=== PATIENT | female | born 1995 | race Caucasian/White ===

== ENCOUNTER 2018-07-05 11:58 | Outpatient (REF) | payer MEDICAID, SELFPAY ==
[2018-07-05 22:07] LABS: HCT 41.6 % (36.0-46.0); HGB 13.9 g/dL (12.0-15.5); Mean Corp. HGB Concentration 33.4 g/dL (32.0-36.0); Mean Corpuscular Hemoglobin 30.3 pg (27.0-33.0); Mean Corpuscular Volume 90.8 fL (80-95); Mean Platelet Volume 10.2 fL (8.0-11.0); Platelet Count 251 x1000/uL (130-400); RBC 4.58 m/cumm (4.00-5.20); White Blood Cell Count 6.22 k/cumm (4.4-10.8)
[2018-07-05 22:19] LABS: C-Reactive Protein 0.14 mg/dL (0.0-0.3); TSH (W/Ref FT4) 1.28 uIU/mL (0.358-3.74)
[2018-07-05 23:22] LABS: ESR 10 MM/HR (0-20)
[2018-07-07 08:59] LABS: Cyclic Citrullinated Peptide <2.5 U/mL (<5.0)
== END 2018-07-05 12:18 ==
LOC: NCHCN 11:58
PROVIDERS: PCP Internal Medicine; Visit Provider Internal Medicine
DX: G44.209 Tension-type headache, unspecified, not intractable (principal); G43.109 Migraine with aura, not intractable, without status migrainosus; R53.83 Other fatigue; M25.50 Pain in unspecified joint; Z00.00 Encounter for general adult medical examination without abnormal findings
CPT/HCPCS: 85027; 85652; 86200; 84443; 86140

== ENCOUNTER 2021-01-02 12:13 | Outpatient (REF) | payer MEDICAID, SELFPAY ==
--- NOTE | 2021-01-02 11:15 | SKI_PTH ---
PATIENT: Meron Artis LOC: [facility] U#:[id number] AGE/SX: 25/F ROOM: RE01/02/[address]: Joni Lugo : 1995 BED: DIS: 01/02/2021 SPEC #: [id number] RECD: 01/02/21 16:54 STATUS: STACY RECindy #: [id number] MARYCHUY: 01/02/21 11:[address]: Joni Lugo DEPT: Surgical Specimen RECD BY: Sameera Montague ENTERED: 01/02/21 16:55 SP TYPE: KALI AGUILAR DR: Alli Nguyen Tissues: 1 - SKIN BIOPSY(SHAVE/PUNCH) Procedures: SKIN LEVEL 4 Comments: [id number]
== END 2021-01-02 12:14 | disposition home or self-care (01) ==
LOC: NCHCN 12:13
PROVIDERS: PCP Internal Medicine; Visit Provider Family Medicine
DX: D22.5 Melanocytic nevi of trunk (principal)
CPT/HCPCS: 88305

== ENCOUNTER 2021-10-10 11:02 | Outpatient (REF) | payer MEDICAID, SELFPAY ==
--- NOTE | 2021-10-10 10:30 | PAPFT_PTH ---
PATIENT: Meron Artis LOC: [facility] U#:[id number] AGE/SX: 26/F ROOM: RE10/10/[address]: Bhavya Pacheco : 1995 BED: DIS: 10/10/2021 SPEC #: [id number] RECD: 10/10/21 12:56 STATUS: STACY RECindy #: [id number] MARYCHUY: 10/10/21 10:[address]: Bhavya Pacheco DEPT: [facility] Cytology RECD BY: Sameera Montague ENTERED: 10/10/21 12:56 SP TYPE: PAPFT OTHR DR: Alli Nguyen Tissues: 1 - CX/ENDOCX FOR PAP SMEARS Procedures: PAP THIN PREP/[facility] Screening Comments: [id number]
[2021-10-11 14:49] LABS: Chlamydia Result Negative (Negative); GC Result Negative (Negative)
== END 2021-10-10 11:03 | disposition home or self-care (01) ==
LOC: LBN 11:02
PROVIDERS: PCP Internal Medicine; Visit Provider Obstetrics & Gynecology Gynecology
DX: N81.2 Incomplete uterovaginal prolapse (principal); Z11.3 Encounter for screening for infections with a predominantly sexual mode of transmission; Z12.4 Encounter for screening for malignant neoplasm of cervix; R87.613 High grade squamous intraepithelial lesion on cytologic smear of cervix (HGSIL)
CPT/HCPCS: 87491; 87591; 88142

== ENCOUNTER 2021-10-17 02:19 | Outpatient (CLI) | payer MEDICAID, SELFPAY ==
[2021-10-17 10:43] LABS: HCG Quant, Pregnancy < 1 mIU/mL (1-3)
[2021-10-17 18:56] LABS: Estradiol 25 pg/mL (See Note)
[2021-10-17 19:24] LABS: FSH 7.1 mIU/mL (See Note)
== END 2021-10-17 02:20 | disposition home or self-care (01) ==
LOC: LBO 02:19
PROVIDERS: PCP Internal Medicine; Visit Provider Obstetrics & Gynecology Gynecology
DX: N91.0 Primary amenorrhea (principal); Z11.3 Encounter for screening for infections with a predominantly sexual mode of transmission
CPT/HCPCS: 36415; 82670; 83001; 84702

== ENCOUNTER 2021-10-23 18:10 | Outpatient (REF) | payer MEDICAID, SELFPAY ==
[2021-10-23 16:02] LABS: HCT 41.8 % (36.0-46.0); HGB 13.4 g/dL (11.2-15.7); MCH 29.3 pg (27.0-33.0); MCHC 32.1 % (32.0-36.0); MCV 92 fL (80-95); MPV 9.5 fL (8.0-11.0); Platelet Count 304 10^3/uL (130-400); RBC 4.57 10^6/uL (3.93-5.22); RDW 12.2 % (11.7-14.6); WBC 7.75 10^3/uL (4.4-10.8)
[2021-10-23 16:07] LABS: ALT 17 U/L (14-59); AST 17 U/L (15-37); Albumin 4.1 g/dL (3.4-5.0); Alkaline Phosphatase 52 U/L (46-116); Anion Gap 9.5 mmol/L (3-11); BUN 9 mg/dL (7-18); Bilirubin, Total 0.5 mg/dL (0.2-1.0); CO2 29.5 mmol/L (21.0-32.0); CREATININE 0.7 mg/dL (0.55-1.02); Calcium 9.3 mg/dL (8.5-10.1); Chloride 101 mmol/L (98-107); Glucose 72 mg/dL (74-106); Potassium 3.7 mmol/L (3.5-5.1); Sodium 140 mmol/L (136-145); Total Protein 7.9 g/dL (6.4-8.2)
== END 2021-10-23 18:11 | disposition home or self-care (01) ==
LOC: NCHCN 18:10
PROVIDERS: PCP Internal Medicine; Visit Provider Family Medicine
DX: R63.1 Polydipsia (principal); R10.9 Unspecified abdominal pain
CPT/HCPCS: 80053; 85027; 84443

== ENCOUNTER 2021-11-08 11:58 | Outpatient (REF) | payer MEDICAID, SELFPAY ==
--- NOTE | 2021-11-08 11:45 | CER_PTH ---
PATIENT: Meron Artis LOC: [facility] U#:[id number] AGE/SX: 26/F ROOM: RE11/08/[address]: Bhavya Pacheco : 1995 BED: DIS: 11/08/2021 SPEC #: [id number] RECD: 11/08/21 13:08 STATUS: STACY MAJOR #: [id number] MARYCHUY: 11/08/21 11:[address]: Bhavya Pacheco DEPT: Surgical Specimen RECD BY: Sameera Montague ENTERED: 11/08/21 13:09 SP TYPE: CER JEFF DR: Alli Nguyen Tissues: 1 - CERVICAL BIOPSY 2 - CERVICAL BIOPSY 3 - ENDOCERVICAL BX/CURRETTE Procedures: GROSS AND MICRO LEVEL 4 IMMUNOPEROXIDASE STAIN P16 IPEX Comments: [id number]
== END 2021-11-08 11:59 | disposition home or self-care (01) ==
LOC: LBN 11:58
PROVIDERS: PCP Internal Medicine; Visit Provider Obstetrics & Gynecology Gynecology
DX: N87.1 Moderate cervical dysplasia (principal)
CPT/HCPCS: 88305; 88342; 88361

== ENCOUNTER 2021-12-16 04:27 | Outpatient (CLI) | payer MEDICAID, SELFPAY ==
[2021-12-16 09:35] LABS: HCT 39.7 % (36.0-46.0); HGB 13.3 g/dL (11.2-15.7); MCH 30.2 pg (27.0-33.0); MCHC 33.5 % (32.0-36.0); MCV 90 fL (80-95); Platelet Count 279 10^3/uL (130-400); RDW-SD 39.9 fL
[2021-12-16 09:55] LABS: Anion Gap 8.1 mmol/L (3-11); BUN 10 mg/dL (7-18); CO2 28.9 mmol/L (21.0-32.0); CREATININE 0.7 mg/dL (0.55-1.02); Chloride 104 mmol/L (98-107); Glucose 106 mg/dL (74-106); Potassium 3.9 mmol/L (3.5-5.1); Sodium 141 mmol/L (136-145)
[2021-12-16 10:23] LABS: Source Nasal/Nares
[2021-12-16 11:19] LABS: HCG Qual (Serum) Negative
[2021-12-16 15:15] LABS: COVID-19 PCR Negative (Negative)
== END 2021-12-16 04:28 | disposition home or self-care (01) ==
LOC: LBO 04:28
PROVIDERS: PCP Internal Medicine; Visit Provider Obstetrics & Gynecology Gynecology
DX: R87.613 High grade squamous intraepithelial lesion on cytologic smear of cervix (HGSIL) (principal); Z30.09 Encounter for other general counseling and advice on contraception; Z20.822 Contact with and (suspected) exposure to COVID-19; Z01.818 Encounter for other preprocedural examination; Z01.812 Encounter for preprocedural laboratory examination
CPT/HCPCS: 36415; 80048; 85027; 86850; 86900; 86901; 87635; 84703

== ENCOUNTER 2021-12-18 09:56 | Day surgery (SDC) | payer MEDICAID, SELFPAY ==
[2021-12-18] VITALS (11 sets, daily range): BP systolic 87–114; BP diastolic 36–77; PULSE 58–77; RESP 12–18; TEMP 36–36.3; O2SAT 97–100; BMI 22.6
[2021-12-18] MEDS: Lactated Ringers 1,000 ML 125 ML IV (10:36)
--- NOTE | 2021-12-18 10:45 | W.ANESPRE ---
General Info Date of Service Date Performed: 12/18/21 Height: 5 ft 2.5 in Weight: 57 kg Body Mass Index (BMI): 22.6 Surgical Procedure: Operation Date: 12/18/21 11:25 Proposed Procedure Side Surgeon p Salpingectomy Laparoscopic Bilateral Bhavya Pacheco MD s Leep Cone Biopsy Bhavya Pacheco MD Meds Allergies and Home Medications Allergies Allergy/AdvReac Type Severity Reaction Status Date / Time latex Allergy Verified 12/18/21 10:22 Home Medication Medication Instructions Recorded albuterol sulfate 90 mcg/actuation 2 puff inhalation Q4H PRN 07/10/17 aerosol inhaler (Ventolin HFA) inhalational spacing device 07/10/17 (OptiChamber Advantage spacer) naproxen 375 mg tablet,delayed 375 mg PO PRN #30 tab-caps 12/10/17 release rizatriptan 5 mg tablet 5 mg PO ONCE 12/09/21 multivitamin with minerals-folic 2 tab PO 12/18/21 acid 200 mcg chewable tablet (Multivitamin Gummies) Current Visit Medications: Current Medications Generic Name Dose Route Start Last Admin Trade Name Freq PRN Reason Stop Dose Admin Ringer's Solution 1,000 mls @ 125 mls/hr 12/18/21 06:00 12/18/21 10:36 IV 01/16/22 23:59 125 mls/hr INFUSION ASHANTI Administration IV Miscellaneous Supplies 1 each 12/18/21 06:00 Iv Access IV 01/16/22 23:59 DIRECTED ASHANTI Sodium Chloride 0 ml 12/18/21 06:00 Normal Saline Flush 10 Ml Syr IV 01/16/22 23:59 PRN PRN Sodium Chloride 0 ml 12/18/21 06:00 Normal Saline 10 Ml Vial IJ 01/16/22 23:59 DIRECTED PRN Sterile Water 0 ml 12/18/21 06:00 Water,Injection,Sterile 10 Ml Vial IJ 01/16/22 23:59 DIRECTED PRN PFSH Active Problems Active Problems: Problem Status Onset Code Anxiety 03/02/15 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), 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 Autism 02/14/15 F84.0 Chronic tension-type headache, not intractable 03/02/15 G44.229 Depot contraception 06/08/15 Z30.42 Dysmenorrhea 03/02/15 N94.6 Lower abdominal pain 03/20/17 R10.30 Pain in joint, site unspecified 03/02/15 M25.50 Pervasive developmental disorder, unspecified 03/02/15 F84.9 Pityriasis nigra 10/23/15 B36.1 Encounter for counseling regarding contraception Z30.09 Amenorrhea N91.2 Routine screening for STI (sexually transmitted infection) Z11.3 Pap test, as part of routine gynecological examination Z01.419 High grade squamous intraepithelial cervical dysplasia R87.613 Preop examination Z01.818 Medical History Medical History ADHD (attention deficit hyperactivity disorder) Anxiety Arthralgia BV (bacterial vaginosis) Rx with PO Metronidazole. Dysmenorrhea Initially given Mirena IUD 02/2015 which was not tolerated. 04/2015 Mirena removed and Depo Provera 150mg Q3mo 01/2018 stopped Depo. No BC at this time. Encounter for Depo-Provera contraception (05/11/15) Fibromyalgia Pervasive developmental disorder Tension headache Tobacco Smoking/Tobacco Use Status: Never Alcohol Alcohol Intake: never Substance Use Substance use type: does not use Prental History History 1 Para 0 Hx # Term Pregnancies Multiple births Hx # Pregnancies Ectopic pregnancies AB induced 1 Hx Number of Living Children AB spontaneous Vital Signs and Lab Results Vital Signs Most Recent Vital Signs in EMR: Most Recent Vital Signs Temp Pulse Resp BP Pulse Ox 36.3 C L 77 18 114/77 100 12/18/21 10:00 12/18/21 10:00 12/18/21 10:00 12/18/21 10:00 12/18/21 10:00 Lab Results Blood Type / Crossmatch: Patient ABO/Rh A Positive 12/16/21 Antibody Screen NEGATIVE 12/16/21 Complete Blood Count: White Blood Count 9.90 10^3/uL (4.4-10.8) 12/16/21 09:26 Red Blood Count 4.40 10^6/uL (3.93-5.22) 12/16/21 09:26 Hemoglobin 13.3 g/dL (11.2-15.7) 12/16/21 09:26 Hematocrit 39.7 % (36.0-46.0) 12/16/21 09:26 Platelet Count 279 10^3/uL (130-400) 12/16/21 09:26 Complete Metabolic Panel: Sodium Level 141 mmol/L (136-145) 12/16/21 09:26 Potassium Level 3.9 mmol/L (3.5-5.1) 12/16/21 09:26 Chloride Level 104 mmol/L (98-107) 12/16/21 09:26 Carbon Dioxide Level 28.9 mmol/L (21.0-32.0) 12/16/21 09:26 Blood Urea Nitrogen 10 mg/dL (7-18) 12/16/21 09:26 Creatinine 0.7 mg/dL (0.55-1.02) 12/16/21 09:26 Estimated GFR/1.73 m2 >= 60.00 (mL/min/1.73m2) 12/16/21 09:26 Calcium Level 9.0 mg/dL (8.5-10.1) 12/16/21 09:26 Glucose Level 106 mg/dL (74-106) 12/16/21 09:26 Liver Function Panel: No Data to Display Coagulation Panel: No Data to Display Cardiac Panel: No Data to Display Arterial Blood Gas: No Data to Display Venous Blood Gas: No Data to Display Pancreas Panel: No Data to Display Thyroid Panel: No Data to Display Infectious Disease: Coronavirus (COVID-19)(PCR) Negative (Negative) 12/16/21 09:48 Coronavirus 2019 Source Nasal/Nares 12/16/21 09:48 Blood Cultures: No Data to Display Toxicology Panel: No Data to Display Panel: Serum HCG, Qualitative Negative 12/16/21 09:26 Anesthesia Assessment and Plan Anesthesia History Personal History: No History of Anesthesia Complications Family History: No Family History of Anesthesia Complications Exercise Tolerance Exercise Tolerance: Metabolic Equivalents>4 Cardiac & Pulmonary Exam Cardiac Exam: Normal S1/S2 Heart Sounds Pulmonary Exam: Clear Bilateral Breath Sounds Implantable Cardiac Device Does patient have a Pacemaker or an ICD?: No Airway Exam Known Difficult Airway: No Mallampati Class: 1 Mouth Opening: Normal (> 3cm) Thyromental Distance: Greater than 3 cm Neck Range of Motion: Full ROM Neck Circumference: Normal Teeth Condition: Normal Dentition ASA Classification ASA Score: ASA 2 Emergency Case?: No NPO Status NPO Status: NPO Clears >2 hours, Solids >8 hours Status Status: Negative HCG Anesthesia Plan Resuscitation Status: Full Code Anesthesia Technique: General Anesthesia Airway Planned: Endotracheal Tube Monitors Used: Standard Monitors Preoperative Comments:: 26 yo female for lap slaping. Sig PMHx: anxiety, ADD, autism, fibromyalgia, never smoker/EtOH, occ motion sickness.
[2021-12-18] MEDS: Bupivacaine 0.25% Pres-Free 30 ML VIAL (14:14)
--- NOTE | 2021-12-18 14:20 | FALL_PTH ---
PATIENT: Meron Artis LOC: [facility] U#:[id number] AGE/SX: 26/F ROOM: RE12/18/[address]: Bhavya Pacheco : 1995 BED: DIS: 12/18/2021 SPEC #: [id number] RECD: 12/18/21 17:42 STATUS: STACY Cindy #: [id number] MARYCHUY: 12/18/21 14:[address]: Bhavya Pacheco DEPT: Surgical Specimen RECD BY: Sameera Montague ENTERED: 12/18/21 17:44 SP TYPE: Fall OTHR DR: Alli Nguyen Tissues: 1 - FALLOPIAN TUBE (STERILIZATION) 2 - FALLOPIAN TUBE (STERILIZATION) 3 - CERVICAL BIOPSY 4 - CERVICAL BIOPSY Procedures: GROSS AND MICRO LEVEL 2 GROSS AND MICRO LEVEL 5 Comments: [id number]
[2021-12-18] MEDS: Bupivacaine 0.5% Pres-Free W/EPI 10 ML VIAL (14:37)
[2021-12-18] MEDS: fentaNYL 100 MCG/2 ML VIAL IVP (15:46)
--- NOTE | 2021-12-18 16:00 | PDOC.DSDIS_ITS ---
Discharge Plan Disposition Patient Disposition: HOME Condition: Good Discharge Details Reason For Visit: Tubal sterilization Attending Provider: Bhavya Pacheco Primary Care Provider: Alli Nguyen Home Meds and New Rx's Prescriptions: No Action oxycodone-acetaminophen [Percocet] 5-325 mg tablet 1 tab PO Q6H MDD 4 PRN (Reason: pain) Qty: 5 0RF rizatriptan 5 mg tablet 5 mg PO ONCE Rx Instructions: may repeat once after at least 2 hours naproxen 375 MG tablet,delayed release (DR/EC) 375 mg PO PRN Qty: 30 1RF Rx Instructions: do not chew. swallow whole. albuterol sulfate [Ventolin HFA] 60 PUFF HFA aerosol inhaler 2 puff Inhalation Q4H PRN0RF (DME) OptiChamber Advantage 1 EACH spacer 1 ea Miscellaneous DIRECTED 0RF Multivitamin Gummies 200 mcg Tablet,Chewable 2 tab PO Discharge Instructions Additional Instructions: You may remove the bandages over your incisions on postoperative day 2. You may take a shower on postoperative day 2. I recommend covering your incisions with a Band-Aid avoid having the areas get bumped. The LEEP was performed. You will experience cramping from the cervix and vagina for 24 hours. You will also have brown coffee ground colored discharge. That is the medicine that we put on the cervix to keep it from bleeding. Avoid any tampons in the vagina. Plan to see me in approximately 1 to 2 weeks for postop check. We will discuss the pathology results at the time of a postop visit. I have called a prescription for Percocet 1 tablet every 6 hours for pain to your pharmacy. You may pick it up on the way home. Continue to use your Naprosyn in addition to the Percocet. Take Tylenol for mild pain Percocet has Tylenol in it so avoid taking additional Tylenol when taking the Percocet. Stand Alone Forms: Anesthesia Discharge Inst., DSU Post [employer]/Pete Segura (DSU) Activity:: Activity as Tolerated Remove Dressings/Wound Care:: 48 hours Shower/Bathe:: 48 hours Diet:: As Tolerated Discharge Orders Discharge Orders: Discharge Order (Routine); Ordered 12/18/21 Ordered By: Bhavya Pacheco Discharge Data Discharge Date/Time-TO BE ENTERED AT DEPARTURE: 12/18/21 17:32 Discharge Comment: Pt d/c from DSU.
--- NOTE | 2021-12-18 16:11 | W.ANESPOSTOP ---
Postoperative Evaluation Date, Time and Location Date Performed: 12/18/21 Time Performed: 16:11 Patient Location: PACU Vital Signs Most Recent Imported Vital Signs: Most Recent Vital Signs Temp Pulse Resp BP Pulse Ox 36.3 C L 58 L 12 108/62 100 12/18/21 16:00 12/18/21 16:00 12/18/21 16:00 12/18/21 16:00 12/18/21 16:00 Pain Score Most Recent Pain Score: Most Recent Pain Score Pain Level 5 12/18/21 16:00 Assessment Mental Status: Awake (Alert & Oriented to Patient Baseline) Airway and Respiratory Function: Patent airway with normal (patient baseline) respiratory exam Cardiovascular Function: Hemodynamically Stable Hydration Status: Adequately Hydrated Nausea & Vomiting: No Nausea or Vomiting Pain: Pain is tolerable per patient Peripheral Nerve Block: Patient did not receive a nerve block
--- NOTE | 2021-12-18 18:46 | ROE_ITS ---
Date of service: 12/18/21 Time of Service: 18:46 Operative Note Operative Note DATE OF PROCEDURE: 12/18/21 PRE-OP DIAGNOSIS: undesired fertility. High grade cervical dysplasia same PROCEDURE: Laparoscopic bilateral salpingectomy. Loop electrocautery excision procedure. SURGEON: Bhavya Pacheco ASSISTING SURGEON: Geetha Pena Refer to Anesthesia Record ESTIMATED BLOOD LOSS: 5 PATHOLOGY: other (Bilateral fallopian tubes, 2 cervical LEEP specimens) COMPLICATIONS: None Patient was transported to: PACU Patient's condition: stable Indications: 26-year-old female who desires permanent sterilization after alternative methods of contraception were attempted and are unacceptable to the patient. She has a history of cervical intraepithelial neoplasia 2 and was advised to undergo an excision procedure while under anesthesia. Findings: Normal pelvis. Bilateral normal adnexa. Normal uterus normal upper abdomen normal appearing cervix. Procedure Description: Patient was taken to the operating room where she was placed in the dorsal supine position and endotracheal anesthesia was administered without difficulty. SCDs were in place. She is placed in the dorsal lithotomy position in yellowfin stirrups. A Duke catheter was inserted to gravity drainage A surgical timeout was performed. She was prepped and draped in the usual sterile fashion. The umbilical fold was infiltrated with 0.25% Marcaine without epinephrine and 12 mm vertical skin incision was made in the umbilicus. Through this incision a varies needle connected to carbon dioxide gas was inserted into the abdomen and intra-abdominal placement confirmed by drop in the intra- abdominal pressure. Once a pneumoperitoneum was established a 12 mm Visiport trocar was introduced into the abdomen under direct visualization. The patient was then placed in Trendelenburg and 2 sites on the abdomen approximately 6 cm diagonal to the right of and left of the umbilical incision were transilluminated the skin infiltrated with 0.25% Marcaine, incised with a scalpel and under direct visualization two 5 mm ports were placed in the right and left lower quadrants respectively. The abdomen was inspected with the above-noted findings. The left fallopian tube was located and followed out to its fimbriated end. A LigaSure electrocautery device was used to clamp, cauterize, and transect the fimbria from the left mesosalpinx to the level of the left uterine cornua. The left fallopian tube was then delivered through the 10 mm umbilical port and passed off of the operative field. A similar technique was carried out on the right fallopian tube without difficulty. The right fallopian tube was then delivered through the umbilical port. Both fallopian tube pedicles were inspected and noted to be hemostatic. Under direct visualization the two 5 mm ports were removed, pneumoperitoneum reduced, and the umbilical port removed. The fascia of the umbilical port site was reapproximated with interrupted suture of 0 Vicryl. The skin of all trocar sites was reapproximated with 4-0 Monocryl and covered with dry sterile dressings. Attention was turned to the LEEP. The duke catheter was removed and an insulated Graves speculum with attached smoke removal device was inserted into the vagina.?The body of the cervix was infiltrated with 0.25% Marcaine in a circumferential fashion. A paracervical block was performed with 3cc of 0.25% Marcaine without epinephrine at the 4 and 8 o'clock postions. A [id number] radius loop electrode was attached to electrocautery with a cutting current of 40 and a coagulation current of 10.? Moving from left to right a specimen of ectocervix was removed from the 9 0'clock position to the 3 o'clock position. In a similar fashion another pass of the loop was performed in a left to right direction from the 8 o'clock position to the 4 o'clock position.? The samples were collected and placed in formalin. The surface of the excision site was cauterized with the electrocautery device and then treated with an application of Monsel's paste with excellent hemostasis achieved.? After final inspection of the cervical excision site all instruments were removed from patient's vagina. She was then placed in the dorsal supine position, awakened, extubated and transported to recovery area in stable condition. All sponge lap needle counts are correct x2.
== END 2021-12-18 17:32 | disposition home or self-care (01) ==
PROVIDERS: PCP Internal Medicine; Visit Provider Obstetrics & Gynecology Gynecology
PROC: (CPT 58661; principal; 2021-12-18 11:15)
PROC: 0UBC7ZZ Excision of Cervix, Via Natural or Artificial Opening (ICD-10-PCS; CPT 57522; 2021-12-18 11:15)
DX: Z30.2 Encounter for sterilization (principal); N87.1 Moderate cervical dysplasia
CPT/HCPCS: 58661; 57522; 81025; 88305; 88302; 88307; J1100; J1885; J2250; J2405; J2704; J3010

== ENCOUNTER 2022-03-18 13:45 | Outpatient (REF) | payer MEDICAID, SELFPAY ==
[2022-03-18 15:08] LABS: Anion Gap 7.5 mmol/L (3-11); BUN 11 mg/dL (7-18); CO2 29.5 mmol/L (21.0-32.0); CREATININE 0.8 mg/dL (0.55-1.02); Calcium 9.3 mg/dL (8.5-10.1); Chloride 100 mmol/L (98-107); Estimated GFR 102.86 (mL/min/1.73m2); Glucose 75 mg/dL (74-106); Potassium 4.2 mmol/L (3.5-5.1); Sodium 137 mmol/L (136-145); TSH 1.16 uIU/mL (0.36-3.74)
[2022-03-19 10:33] LABS: IgA 173 mg/dL (85-499); Interpretation (See Note); Tissue Transglutaminase IgA <1.2 U/mL (<4.0)
== END 2022-03-18 13:46 | disposition home or self-care (01) ==
LOC: NCHCN 13:45
PROVIDERS: PCP Internal Medicine; Visit Provider Internal Medicine
DX: R63.1 Polydipsia (principal); R14.0 Abdominal distension (gaseous); K58.9 Irritable bowel syndrome, unspecified; R53.83 Other fatigue
CPT/HCPCS: 80048; 82784; 83516; 84443; 85025

== ENCOUNTER 2022-08-15 13:47 | Outpatient (REF) | payer MEDICAID, SELFPAY ==
[2022-08-16 15:14] LABS: Chlamydia Result Negative (Negative); GC Result Negative (Negative)
== END 2022-08-15 13:48 | disposition home or self-care (01) ==
LOC: LBN 13:47
PROVIDERS: PCP Internal Medicine; Visit Provider Obstetrics & Gynecology Gynecology
DX: Z11.3 Encounter for screening for infections with a predominantly sexual mode of transmission (principal)
CPT/HCPCS: 87491; 87591

== ENCOUNTER 2022-08-26 02:47 | Outpatient (CLI) | payer MEDICAID, SELFPAY ==
[2022-08-26 12:17] LABS: HCT 40.9 % (36.0-46.0); HGB 13.5 g/dL (11.2-15.7); MCH 29.7 pg (27.0-33.0); MCV 90 fL (80-95); MPV 9.1 fL (8.0-11.0); Platelet Count 330 10^3/uL (130-400); RBC 4.55 10^6/uL (3.93-5.22); RDW 12.1 % (11.7-14.6); RDW-SD 39.8 fL; WBC 8.23 10^3/uL (4.4-10.8)
[2022-08-26 12:36] LABS: Anion Gap 6.7 mmol/L (3-11); BUN 12 mg/dL (7-18); CO2 29.3 mmol/L (21.0-32.0); CREATININE 0.7 mg/dL (0.55-1.02); Calcium 9.4 mg/dL (8.5-10.1); Chloride 102 mmol/L (98-107); Estimated GFR 119.99 (mL/min/1.73m2); Glucose 83 mg/dL (74-106); Potassium 3.9 mmol/L (3.5-5.1); Sodium 138 mmol/L (136-145)
== END 2022-08-26 02:48 | disposition home or self-care (01) ==
LOC: LBO 02:47
PROVIDERS: PCP Internal Medicine; Visit Provider Obstetrics & Gynecology Gynecology
DX: N88.8 Other specified noninflammatory disorders of cervix uteri (principal); Z01.818 Encounter for other preprocedural examination; Z01.812 Encounter for preprocedural laboratory examination; R87.613 High grade squamous intraepithelial lesion on cytologic smear of cervix (HGSIL)
CPT/HCPCS: 36415; 80048; 85027; 86850; 86900; 86901

== ENCOUNTER 2022-08-27 08:24 | Day surgery (SDC) | payer MEDICAID, SELFPAY ==
[2022-08-27 08:23] VITALS: BP 110/75; PULSE 86; RESP 20; TEMP 36.3; O2SAT 100
[2022-08-27] MEDS: Lactated Ringers 1,000 ML 125 ML IV (09:10)
--- NOTE | 2022-08-27 09:39 | ANES.PREOP_ITS ---
General Info Date of Service Date Performed: 08/27/22 Height: 5 ft 2.5 in Weight: 59.6 kg Body Mass Index (BMI): 23.6 Surgical Procedure: Operation Date: 08/27/22 09:10 Proposed Procedure Side Surgeon p Dilation & Curettage with Hysteroscopy Bhavya Pacheco MD Meds Allergies and Home Medications Allergies Allergy/AdvReac Type Severity Reaction Status Date / Time latex Allergy skin Verified 08/27/22 08:58 issues (blisters, rash), agitation Home Medication Medication Instructions Recorded albuterol sulfate 90 mcg/actuation 2 puff inhalation Q4H PRN 07/10/17 aerosol inhaler (Ventolin HFA) inhalational spacing device 07/10/17 (OptiChamber Advantage spacer) naproxen 375 mg tablet,delayed 375 mg PO PRN #30 tab-caps 12/10/17 release rizatriptan 5 mg tablet 5 mg PO ONCE 12/09/21 multivitamin with minerals-folic 2 tab PO DAILY 12/18/21 acid 200 mcg chewable tablet (Multivitamin Gummies) Current Visit Medications: Current Medications Generic Name Dose Route Start Last Admin Trade Name Freq PRN Reason Stop Dose Admin Ringer's Solution 1,000 mls @ 125 mls/hr 08/27/22 06:00 08/27/22 09:10 IV 09/25/22 23:59 125 mls/hr INFUSION ASHANTI Administration IV Miscellaneous Supplies 1 each 08/27/22 06:00 Iv Access IV 09/25/22 23:59 DIRECTED ASHANTI Sodium Chloride 0 ml 08/27/22 06:00 Normal Saline Flush 10 Ml Syr IV 09/25/22 23:59 PRN PRN Sodium Chloride 0 ml 08/27/22 06:00 Normal Saline 10 Ml Vial IJ 09/25/22 23:59 DIRECTED PRN Sterile Water 0 ml 08/27/22 06:00 Water,Injection,Sterile 10 Ml Vial IJ 09/25/22 23:59 DIRECTED PRN PFSH Active Problems Active Problems: Problem Status Onset Code Cervix abnormality N88.9 Anxiety 03/02/15 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 Dysmenorrhea Initially given Mirena IUD 02/2015 which was not tolerated. 04/2015 Mirena removed and Depo Provera 150mg Q3mo 01/2018 stopped Depo. No BC at this time. Dysmenorrhea (03/02/15) Initially treated with Mirena IUD which was not well tolerated. 04/2015 Depo Provera Q3mo. Dysmenorrhea sx improved. Encounter for Depo-Provera contraception (05/11/15) Fibromyalgia Pervasive developmental disorder Tension headache Surgical History Surgical History H/O LEEP 12/2021 History of bilateral salpingectomy 12/2021 Tobacco Smoking/Tobacco Use Status: Never Alcohol Alcohol Intake: never Substance Use Substance use type: does not use Prental History History 1 Para 0 Hx # Term Pregnancies Multiple births Hx # Pregnancies Ectopic pregnancies AB induced 1 Hx Number of Living Children AB spontaneous Vital Signs and Lab Results Vital Signs Most Recent Vital Signs in EMR: Most Recent Vital Signs Temp Pulse Resp BP Pulse Ox 36.3 C L 86 20 110/75 100 08/27/22 08:23 08/27/22 08:23 08/27/22 08:23 08/27/22 08:23 08/27/22 08:23 Lab Results Blood Type / Crossmatch: Patient ABO/Rh A Positive 08/26/22 Antibody Screen NEGATIVE 08/26/22 Complete Blood Count: White Blood Count 8.23 10^3/uL (4.4-10.8) 08/26/22 11:56 Red Blood Count 4.55 10^6/uL (3.93-5.22) 08/26/22 11:56 Hemoglobin 13.5 g/dL (11.2-15.7) 08/26/22 11:56 Hematocrit 40.9 % (36.0-46.0) 08/26/22 11:56 Platelet Count 330 10^3/uL (130-400) 08/26/22 11:56 Complete Metabolic Panel: Sodium 138 mmol/L (136-145) 08/26/22 11:56 Potassium 3.9 mmol/L (3.5-5.1) 08/26/22 11:56 Chloride 102 mmol/L (98-107) 08/26/22 11:56 Carbon Dioxide 29.3 mmol/L (21.0-32.0) 08/26/22 11:56 BUN 12 mg/dL (7-18) 08/26/22 11:56 Creatinine 0.7 mg/dL (0.55-1.02) 08/26/22 11:56 Est GFR (CKD-EPI 2020) 119.99 (mL/min/1.73m2) 08/26/22 11:56 Calcium 9.4 mg/dL (8.5-10.1) 08/26/22 11:56 Glucose 83 mg/dL (74-106) 08/26/22 11:56 Liver Function Panel: No Data to Display Coagulation Panel: No Data to Display Cardiac Panel: No Data to Display Arterial Blood Gas: No Data to Display Venous Blood Gas: No Data to Display Pancreas Panel: No Data to Display Thyroid Panel: No Data to Display Infectious Disease: Neisseria gonorrhoeae DNA Probe Negative (Negative) 08/15/22 1 2:00 Blood Cultures: No Data to Display Toxicology Panel: No Data to Display Panel: No Data to Display Anesthesia Assessment and Plan Anesthesia History Personal History: No History of Anesthesia Complications Family History: No Family History of Anesthesia Complications Exercise Tolerance Exercise Tolerance: Metabolic Equivalents>4 Pertinent Negatives Pertinent Negatives: No Symptoms of GERD, No Major Cardiovascular Symptoms or Complaints and No Major Pulmonary Symptoms or Complaints Cardiac & Pulmonary Exam Cardiac Exam: Normal S1/S2 Heart Sounds Pulmonary Exam: Clear Bilateral Breath Sounds Implantable Cardiac Device Does patient have a Pacemaker or an ICD?: No Airway Exam Known Difficult Airway: No Mallampati Class: 1 Mouth Opening: Normal (> 3cm) Thyromental Distance: Greater than 3 cm Neck Range of Motion: Full ROM Neck Circumference: Normal Teeth Condition: Normal Dentition ASA Classification ASA Score: ASA 2 Emergency Case?: No NPO Status NPO Status: NPO Clears >2 hours, Solids >8 hours Status Status: Negative HCG Anesthesia Plan Resuscitation Status: Full Code Anesthesia Technique: General Anesthesia Airway Planned: Natural Airway Monitors Used: Standard Monitors
[2022-08-27 09:51] VITALS: BMI 23.6
[2022-08-27] MEDS: Bupivacaine 0.25% Pres-Free 30 ML VIAL (10:40)
--- NOTE | 2022-08-27 10:42 | ENDO_PTH ---
PATIENT: Meron Artis LOC: [facility] U#:[id number] AGE/SX: 27/F ROOM: RE08/27/[address]: Bhavya Pacheco : 1995 BED: DIS: 08/27/2022 SPEC #: [id number] RECD: 08/27/22 12:42 STATUS: STACY RECindy #: [id number] MARYCHUY: 08/27/22 10:[address]: Bhavya Pacheco DEPT: Surgical Specimen RECD BY: Sameera Montgaue ENTERED: 08/27/22 12:43 SP TYPE: Endo OTHR DR: Alli Nguyen Tissues: 1 - ENDOCERVICAL BX/CURRETTE 2 - ENDOMETRIUM BX/CURRETTE Procedures: GROSS AND MICRO LEVEL 4 Comments: [id number]
[2022-08-27 11:06] VITALS: BP 108/61; PULSE 85; RESP 18; TEMP 36.4; O2SAT 99
--- NOTE | 2022-08-27 11:08 | W.PM.DSUDISC ---
Date of service: 08/27/22 Time of Service: 11:08 Discharge Plan Disposition Patient Disposition: Home Condition: Fair Discharge Details Attending Provider: Bhavya Pacheco Primary Care Provider: Alli Nguyen Home Meds and New Rx's Prescriptions: No Action rizatriptan 5 mg tablet 5 mg PO ONCE Rx Instructions: may repeat once after at least 2 hours naproxen 375 MG tablet,delayed release (DR/EC) 375 mg PO PRN Qty: 30 1RF Rx Instructions: do not chew. swallow whole. albuterol sulfate [Ventolin HFA] 60 PUFF HFA aerosol inhaler 2 puff Inhalation Q4H PRN0RF (DME) OptiChamber Advantage 1 EACH spacer 1 ea Miscellaneous DIRECTED 0RF Multivitamin Gummies 200 mcg Tablet,Chewable 2 tab PO DAILY Discharge Instructions Additional Instructions: The inside of the cervix appeared normal. There was no abnormal tissue that I could see. I scraped the canal leading to the uterus and inside of the uterus. You will have bleeding from your cervix and some pink tinged discharge for the next 48 hours. I have written a prescription for pain medication for you and sent it into your pharmacy. Percocet 5/325mg one tablet every 6 hours as needed for pain, along with Ibuprofen 600mg every 6 hours as needed for pain. You may take Acetaminophen when you are not taking Percocet. Keep your follow up appointment with me at [facility]. Stand Alone Forms: DSU Post [employer] Surgery Activity:: Activity as Tolerated Shower/Bathe:: 24 hours Diet:: As Tolerated Discharge Orders Discharge Orders: Discharge Order (Routine); Ordered 08/27/22 Ordered By: Bhavya Pacheco DS: Diagnosis Discharge Diagnosis (1) Cervix abnormality: Status: Acute
[2022-08-27 11:29] VITALS: BP 110/76; PULSE 83; RESP 18; TEMP 36.6; O2SAT 99
--- NOTE | 2022-08-27 11:49 | W.PM.OP ---
Date of service: 08/27/22 Time of Service: 11:49 Operative Note Operative Note DATE OF PROCEDURE: 08/27/22 PRE-OP DIAGNOSIS: endocervical bleeding POST-OP DIAGNOSIS: same PROCEDURE: Hysteroscopy with endocervical and endometrial curretage. 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 Postop course was unremarkable until she developed daily bleeding that appeared endocervical in origin. Distal endocervix was treated with application of Silver Nitrate without improvement in daily bleeding. Unable to perform any endocervical sampling at the visit where the endocervical os was treated with application of Monsels paste on 08/15/22. Pt reports that her bleeding has stopped since the application of the Monsels paste. No menses since her recent visit. I recommended a fractionated curettage to evaluate her endocervical tissue. Findings: Anterior lip of the cervix flush with vaginal epithelium. Endocervical os stenotic. Dilated Endocervical canal visually normal. Uterine cavity with weblike structure in lower uterine segment and subsequently obscuring visualization of uterine fundus and tubal ostia. Scant endometrial curettings obtained from endocervical and endometrial curettings. Procedure Description: Patient was taken to the operating room where she was placed in the dorsal supine position and was administered without difficulty. She was then placed in the dorsal lithotomy position in [facility] in a neurologically neutral position. She was then prepped, and draped in the usual sterile fashion. Surgical timeout was performed. Proctor speculum was placed into the vagina and the anterior lip of the cervix was infiltrated with 2 cc of 0.25% Marcaine without epinephrine. A single-tooth tenaculum was then used to grasp and hold the posterior lip of the cervix. A paracervical block was performed with 4 cc of quarter percent Marcaine injected into the 4 and 8:00 paracervical spaces respectively. The uterus was sounded to 5 cm. The cervix was then sequentially dilated to a maximum of 15 Hood and a Kevorkian curette was used to sample the endocervical canal. The endocervical tissue was passed off of the operative field. A 0 degree hysteroscope was inserted into the cervical offic and into the uterine cavity with normal saline as a distention medium with the above-noted findings. The hysteroscope was then removed and a banjo curette was used to gently curettage all 4 quadrants of the uterine cavity. Endometrial curettings were then passed off of the operative field. Hysteroscope was then reinserted into the uterine cavity with the obscuring fine synechiae remaining. No further curetting was performed hysteroscope was removed and the tenaculum was removed from the posterior lip of the cervix the tenaculum site was noted hemostatic. Okay patient was awakened and transported to recovery area in stable condition. All sponge lap needle counts correct x2
[2022-08-27 12:17] VITALS: BP 114/65; PULSE 79; RESP 18; TEMP 36.6; O2SAT 100
[2022-08-27] MEDS: Ketorolac 30 MG/ML VIAL IVP (12:27)
--- NOTE | 2022-08-27 12:37 | W.ANESPOSTOP ---
Postoperative Evaluation Date, Time and Location Date Performed: 08/27/22 Time Performed: 12:38 Patient Location: Day Surgery Unit Vital Signs Most Recent Imported Vital Signs: Most Recent Vital Signs Temp Pulse Resp BP Pulse Ox 36.6 C 79 18 114/65 100 08/27/22 12:17 08/27/22 12:17 08/27/22 12:17 08/27/22 12:17 08/27/22 12:17 Pain Score Most Recent Pain Score: Most Recent Pain Score Pain Level 3 08/27/22 12:17 Assessment Mental Status: Awake (Alert & Oriented to Patient Baseline) Airway and Respiratory Function: Patent airway with normal (patient baseline) respiratory exam Cardiovascular Function: Hemodynamically Stable Hydration Status: Adequately Hydrated Nausea & Vomiting: Active Nausea or Vomiting Present (very slight with standing, not requesting treatment. ) Nausea and Vomiting Management: Other Pain: Pain is tolerable per patient Peripheral Nerve Block: Patient did not receive a nerve block
== END 2022-08-27 12:40 | disposition home or self-care (01) ==
PROVIDERS: PCP Internal Medicine; Visit Provider Obstetrics & Gynecology Gynecology
PROC: 0UDB8ZZ Extraction of Endometrium, Via Natural or Artificial Opening Endoscopic (ICD-10-PCS; CPT 58558; principal; 2022-08-27 09:00)
DX: N72 Inflammatory disease of cervix uteri; N85.8 Other specified noninflammatory disorders of uterus
CPT/HCPCS: 58558; 88305; J1100; J1885; J2250; J2405; J2704; J3010

== ENCOUNTER 2023-02-11 10:59 | Outpatient (REF) | payer MEDICAID, SELFPAY ==
--- NOTE | 2023-02-11 10:45 | PAPFT_PTH ---
PATIENT: Meron Artis LOC: [facility] U#:[id number] AGE/SX: 27/F ROOM: RE02/11/[address]: Bhavya Pacheco : 1995 BED: DIS: 02/11/2023 SPEC #: [id number] RECD: 02/11/23 13:13 STATUS: STACY RECindy #: [id number] MARYCHUY: 02/11/23 10:[address]: Bhavya Pacheco DEPT: [facility] Cytology RECD BY: Sameera Montague ENTERED: 02/11/23 13:13 SP TYPE: PAPFT OTHR DR: Alli Nguyen Tissues: 1 - CX/ENDOCX FOR PAP SMEARS Procedures: PAP THIN PREP/UVM Screening HPV DNA PROBE Comments: [id number]
== END 2023-02-11 11:00 | disposition home or self-care (01) ==
LOC: LBN 10:59
PROVIDERS: PCP Internal Medicine; Visit Provider Obstetrics & Gynecology Gynecology
DX: Z12.4 Encounter for screening for malignant neoplasm of cervix (principal); Z11.51 Encounter for screening for human papillomavirus (HPV)
CPT/HCPCS: 88142; 87624

== ENCOUNTER 2023-02-11 11:47 | Outpatient (CLI) | payer MEDICAID, SELFPAY ==
[2023-02-11 11:12] LABS: HCT 41.1 % (36.0-46.0); HGB 13.7 g/dL (11.2-15.7); MCHC 33.3 % (32.0-36.0); MCV 90 fL (80-95); Platelet Count 308 10^3/uL (130-400); RBC 4.56 10^6/uL (3.93-5.22); RDW 12.1 % (11.7-14.6); RDW-SD 39.9 fL; WBC 9.43 10^3/uL (4.4-10.8)
== END 2023-02-11 11:48 | disposition home or self-care (01) ==
LOC: LBO 11:48
PROVIDERS: PCP Internal Medicine; Referring Provider Obstetrics & Gynecology Gynecology; Visit Provider Obstetrics & Gynecology Gynecology
DX: N93.9 Abnormal uterine and vaginal bleeding, unspecified (principal)
CPT/HCPCS: 36415; 85027

== ENCOUNTER 2023-09-29 07:12 | Emergency (ER) | payer MEDICAID, SELFPAY ==
--- NOTE | 2023-09-29 07:15 | RT.EKG_ITS ---
APPROVED REPORT Exam: Resting ECG Reason for Exam: syncope Patient Location: E HR:77 bpm ECG Measurements Heart Rate 77 AXIS DC 154 P 72 QRSd 89 QRS 85 QT 374 T 56 QTc 425 Conclusion Sinus rhythm...normal P axis, V-rate 60- 99 normal sinus rhtyhm, normal axis, normal intervals, non ischemic
[2023-09-29 07:22] VITALS: BP 95/48; PULSE 72; RESP 16; TEMP 36.5; O2SAT 100
[2023-09-29 07:25] VITALS: RESP 16
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
[2023-09-29 08:47] VITALS: BP 116/59; PULSE 79; RESP 18; O2SAT 100
== END 2023-09-29 09:52 | disposition home or self-care (01) ==
PROVIDERS: Emergency Provider Emergency Medicine; PCP Internal Medicine
DX: R55 Syncope and collapse (principal)
CPT/HCPCS: 81025; 82962; 93005; 99284; 93010; 99283

== ENCOUNTER 2024-01-07 15:32 | Outpatient (REF) | payer MEDICAID, SELFPAY ==
--- OUTSIDE RECORDS SUMMARY | 2024-01-07 15:35 | XMS_ITS | Encounter Summary ---
Author Organization [facility] Address [address] [place] [address] Care Team Providers Care Boatbuilder Wood Name Role Phone Alli Nguyen MD Primary Care Provider [phone] Encounter Details Date Type Department Care Team (Late st Contact Info) Description 03/20/[address] [facility] [phone] Domonique Newman MD [address] [place], [place] [id number] Social History Tobacco Use Types Packs/Day Years Used Date Smoking Tobacco: Never Assessed Sex and Gender Information Value Date Recorded Sex Assigned at Not on file Gender Identity Not on file Sexual Orientation Not on file documented as of this encounter Plan of Treatment Not on file documented as of this encounter Procedures Procedure Name Priority Date/Time Associated Diagnosis Comments PAP TEST- RESULT ONLY Routine 03/20/2017 0:00 EST documented in this encounter Results * PAP TEST- RESULT ONLY (03/20/2017 0:00 EST) Pathology Report: CYTOPATHOLOGY REPORT Reports generated via electronic interface contain original data; however they are lacking the format of the original report. Caution should be taken when reading/interpreti ng unformatted reports. Name: ? ASHKAN MERON ? Accession #: ? [id number] : ? 1995 (Age: 21) ??F ?Collect Date: ? 03/20/2017 Location: ? [facility] ? Receive Date: ? 03/24/2017 Provider: ?DOMONIQUE NEWMAN MD Copy to: ?ALLI NGUYEN MD ? Specimen/Source: ?Pap Test, Cervix, ThinPrep Imaging System with manual evaluation Last Menstrual Period: ? Hormonal/Contracep tive Status: ? Depo-Provera ? SPECIMEN ADEQUACY ? Satisfactory for Evaluation - transformation zone component present - scant squamous epithelial component GENERAL CATEGORIZATION ? Negative for Intraepithelial Lesion or Malignancy INTERPRETATION ? Shift in lauren present suggestive of bacterial vaginosis. ? Document reviewed and electronically signed by: ? JEVON Cash(ASCP) ? Report Date: ??04/02/2017 10:53 End of Report [facility] 03/20/2017 03/24/2017 Domonique Newman MD PATHOLOGY ORDERABLES [facility] [address] [place] [address] documented in this encounter Visit Diagnoses Not on filedocumented in this encounter Care Teams Boatbuilder Wood Relationship Specialty Start Date End Date Alli Nguyen MD [address] [place] [address] PCP - General 03/01/15 documented as of this encounter
--- OUTSIDE RECORDS SUMMARY | 2024-01-07 15:35 | XMS_ITS | Encounter Summary ---
Author Organization [facility] Address [address] [place] [address] Care Team Providers Care Beverage Inspection Machine Tender Name Role Phone Alli Nguyen MD Primary Care Provider [phone] Encounter Details Date Type Department Care Team (Late st Contact Info) Description 10/10/2021 Lab Requisition [facility] Pathology & Laboratory Medicine - [address] [id number] Outr Resulting Lab, Provider Social History Tobacco Use Types Packs/Day Years Used Date Smoking Tobacco: Never Assessed Interpersonal Safety Answer Date Record ed Physically Hurt Never 11/20/2019 Verbally Threaten Not on file 11/20/2019 Sex and Gender Information Value Date Recorded Sex Assigned at Not on file Gender Identity Not on file Sexual Orientation Not on file documented as of this encounter Plan of Treatment Not on file documented as of this encounter Procedures Procedure Name Priority Date/Time Associated Diagnosis Comments CHLAMYDIA/N. GONORRHOEAE AMPLIFIED NUCLEIC ACID Routine 10/10/2021 10:30 EDT documented in this encounter Results * CHLAMYDIA/N. GONORRHOEAE AMPLIFIED RNA (10/10/2021 10:30 EDT) Neisseria gonorrhoeae Result Negative Negative 10/11/2021 14:44 EDT [facility] Chlamydia trachomatis Result Negative Negative 10/11/2021 14:44 EDT [facility] Swab ENTIRE ENDOCERVIX / Unknown 10/10/2021 10:30 EDT 10/10/2021 22:47 EDT Provider Outr Resulting Lab MICROBIOLOGY - GENERAL ORDERABLES [facility] [address] [place] [address] documented in this encounter Visit Diagnoses Not on filedocumented in this encounter Care Teams Beverage Inspection Machine Tender Relationship Specialty Start Date End Date Alli Nguyen MD [address] [place], [place] [id number] PCP - General 03/01/15 documented as of this encounter
--- OUTSIDE RECORDS SUMMARY | 2024-01-07 15:35 | XMS_ITS | Encounter Summary ---
Author Organization [facility] Address [facility] [place] [address] Care Team Providers Care Cruise Guide Name Role Phone Alli Nguyen MD Primary Care Provider [phone] Reason for Visit * Reason Comments Left Finger Pain Encounter Details Date Type Department Care Team (Late st Contact Info) Description 09/23/2010 3:30 PM EDT [place] [id number] CLINIC, Shimon Evans MD [facility] [address] [place] [address] Scott Galan PA [facility] [place] [address] Ganglion cyst of flexor tendon sheath (Primary Dx) Discharge Disposition: Home Social History Tobacco Use Types Packs/Day Years Used Date Smoking Tobacco: Never Assessed Sex and Gender Information Value Date Recorded Sex Assigned at Not on file Gender Identity Not on file Sexual Orientation Not on file documented as of this encounter Progress Notes * Scott Galan PA - 09/23/2010 4:23 PM EDT Subjective: Patient ID: Meron Artis is a 15 y.o. female. HPI Ms. Artis is a 15-year-old right-hand dominant woman who presents with an occasionally painful lump on her left index finger. She initially noticed this lump about a year ago, and it may have gotten slightly big over the past year, but it has not had any large changes in size or diameter. This lump is not particularly painful for her except when she presses on it or tries to cross her long finger over her index finger or vice versa. No other lumps or bumps that she has noticed. No family history of lumps or bumps, no numbness or tingling in her left index finger. ROS denies, noncontributory Objective: Physical Exam Awake, alert, oriented to person, place, time, NAD, afebrile, hemodynamically stable.Comfortable in the exam room. Ortho Exam small 5 mm x 5 mm hard nodule that is minimally mobile on the ulnar side at the base of the index finger. It is slightly tender to palpation. Difficult to ascertain if it transilluminates due to location of nodule. Sensation is intact to light touch in the median, radial, and ulnar nerve distribution at the tips of all the fingers. Wrist flexion and extension, EPL, FPL, interossei are intact. FDS and FDP are intact. She is able to flex her index finger at the MCP, DIP, and PIP joints. 2+ radial pulse. MRI - findings c/w flexor sheath ganglion Neurologic Exam intact Assessment and Plan: No problem-specific visit notes found for this encounter. A: ganglion cyst, left index finger P: Ganglion cysts discussed with patient. Treatment options and risks/benefits discussed from leastto most invasive. Patient understands options. Meron would like to give this some thought and would to return in 1 month for final decsion making. Pt agrees, questions solicited/answered, will return as scheduled and as needed for concerns or questions. Pt understands they may also call us prn for above. documented in this encounter Miscellaneous Notes * Miscellaneous - Brad Propeller Driven Airplane Mechanic - 09/30/2010 12:05 PM EDT documented in this encounter Plan of Treatment Not on file documented as of this encounter Visit Diagnoses Diagnosis Ganglion cyst of flexor tendon sheath- Primary Ganglion of tendon sheath documented in this encounter Care Teams Cruise Guide Relationship Specialty Start Date End Date Alli Nguyen MD [address] [place] [address] PCP - General 07/31/10 documented as of this encounter
--- OUTSIDE RECORDS SUMMARY | 2024-01-07 15:35 | XMS_ITS | Encounter Summary ---
Author Organization [facility] Address [facility] [place] [address] Care Team Providers Care Php Mysql Web Developer Name Role Phone Alli Nguyen MD Primary Care Provider [phone] Reason for Visit * Reason Onset Date Comments Finger Pain 08/02/2010 lump on finger Encounter Details Date Type Department Care Team (Late st Contact Info) Description 08/02/2010 [place] [phone] Shimon Parkinson MD [facility] [place] [address] Finger Pain (lump on finger) Social History Tobacco Use Types Packs/Day Years Used Date Smoking Tobacco: Never Assessed Sex and Gender Information Value Date Recorded Sex Assigned at Not on file Gender Identity Not on file Sexual Orientation Not on file documented as of this encounter Miscellaneous Notes * Telephone Encounter - De Quijano - 08/02/2010 4:33 PM EDT I spoke with Meron's mother Rosalind and she informed me that Meron has had no prior x rays. I called again today that no xray is needed prior to the appointment, Dr. Parkinson cancelled the pending order. Arrival to check in at 12:45 PM on August 19, 2010 * Telephone Encounter - De Quijano - 08/02/2010 11:43 AM EDT Called left message with to discuss appointment. documented in this encounter Plan of Treatment Not on file documented as of this encounter Visit Diagnoses Diagnosis Pain in finger- Primary Pain in limb documented in this encounter Care Teams Php Mysql Web Developer Relationship Specialty Start Date End Date Alli Nguyen MD [address] [place] [address] PCP - General 07/31/10 documented as of this encounter
--- OUTSIDE RECORDS SUMMARY | 2024-01-07 15:35 | XMS_ITS | Clinical Summary ---
Author Organization [facility] Address [address] [place] [address] Care Team Providers Care Project Manager Industrial Name Role Phone Alli Ngyuen MD Primary Care Provider [phone] Social History Tobacco Use Types Packs/Day Years Used Date Smoking Tobacco: Never Assessed Interpersonal Safety Answer Date Record ed Physically Hurt Never 11/20/2019 Verbally Threaten Not on file 11/20/2019 Sex and Gender Information Value Date Recorded Sex Assigned at Not on file Gender Identity Not on file Sexual Orientation Not on file Plan of Treatment Health Maintenance Due Date Last Done Comments Hepatitis C Screen 1995 Hepatitis B Vaccine (1 of 3 - 19+ 3-dose series) 07/20 COVID-19 Vaccine ( season) 2022 Meron Artis Personal/Family Self [address] [facility] [address] [place] [address] Meron Artis Personal/Family Self [address] [facility] [address] [place] [address] Meron Artis Personal/Family Self [address] [place] [address] [address] [place] [address] Care Teams Project Manager Industrial Relationship Specialty Start Date End Date Alli Nguyen MD [address] [place] [address] PCP - General 03/01/15
--- OUTSIDE RECORDS SUMMARY | 2024-01-07 15:35 | XMS_ITS | Encounter Summary ---
Author Organization [facility] [place] [address] Care Team Providers Care Emergency Medicine Physician Assistant Name Role Phone Alli Nguyen MD Primary Care Provider [phone] Encounter Details Date Type Department Care Team (Late st Contact Info) Description 10/25/2010 [place] [address] Marina Winston RN Social History Tobacco Use Types Packs/Day Years Used Date Smoking Tobacco: Never Assessed Sex and Gender Information Value Date Recorded Sex Assigned at Not on file Gender Identity Not on file Sexual Orientation Not on file documented as of this encounter Plan of Treatment Not on file documented as of this encounter Visit Diagnoses Not on filedocumented in this encounter Care Teams Emergency Medicine Physician Assistant Relationship Specialty Start Date End Date Alli Nguyen MD [address] [place] [address] PCP - General 07/31/10 documented as of this encounter
--- OUTSIDE RECORDS SUMMARY | 2024-01-07 15:35 | XMS_ITS | Encounter Summary ---
Author Organization [facility] Address [address] [place] [address] Care Team Providers Care Nephrology Social Worker Name Role Phone Alli Nguyen MD Primary Care Provider [phone] Encounter Details Date Type Department Care Team (Latest Contact Info) Description 08/27/2022 Lab Requisition [facility] Pathology & Laboratory Medicine - [address] [address] Bhavya Mcnulty MD [address] [place] [address] [address] [place] [address] Noninflammatory disorder of cervix uteri, unspecified Social History Tobacco Use Types Packs/Day Years [...] Procedure Name Priority Date/Time Associated Diagnosis Comments SURGICAL PATHOLOGY Today 08/27/2022 10 :42 EDT Noninflammatory disorder of cervix uteri, unspecified documented in this encounter Results * SURGICAL PATHOLOGY (08/27/2022 10:42 EDT) Note to Patient The following pathology results have been interpreted by your pathologist and may be available to you before your health provider has had the opportunity to review them. Please allow time for your provider to receive these results and explore management options, if applicable. 09/02/2022 10:50 [facility] Final Diagnosis A. ENDOCERVIX, CURETTAGE: - Predominantly blood with rare fragment of inflammatory debris and minute fragment of benign squamous epithelium. B. ENDOMETRIUM, CURETTAGE: - Predominantly blood with rare fragment of squamous cell epithelium. - No endometrial tissue present for evaluation. 09/02/2022 10:50 [facility] Diagnosis Comment Deeper sections have been examined on parts A and B. 09/02/2022 10:50 [facility] Attestation There was significant resident/fellow involvement in the diagnostic evaluation of this case. By the signature below, the attending physician certifies that they have personally conducted a gross and/or microscopic examination of the described specimens and rendered or confirmed the above diagnosis. 09/02/2022 10:50 [facility] at 1050 Clinical History Cervix abnormality, abnl cervical bleeding 09/02/2022 10:50 [facility] Gross Description A. Received in formalin labelled with proper patient identification (initials W, L) and 1. Endocervical curettings is an aggregate of a scant amount of blood clot, translucent mucus, and probable admixed Telfa pad material (0.3 x 0.2 by less than 0.1 cm). Entirely submitted in A1. Please note the specimen may not survive processing. B. Received in formalin labelled with proper patient identification (initials W, L) and 2. Endometrial curettings is an aggregate of firm blood clot and possible admixed tissue fragments (1.7 x 0.9 x 0.2 cm). Entirely submitted in B1. Debra Alicea 08/28/2022 12:14 09/02/2022 10:50 [facility] Resident/Arian w: Jenn Encarnacion MD 09/02/2022 10:50 [facility] Performing Lab [facility] 09/02/2022 10:50 [facility] Scanned Images 09/02/2022 10:50 [facility] Tissue ENTIRE ENDOMETRIUM / Unknown 08/27/2022 10:42 EDT 08/27/2022 16:48 EDT Tissue specimen (specimen) ENDOMETRIAL STRUCTURE / Unknown 08/27/2022 10:42 EDT 08/27/2022 16:48 EDT Bhavya Mcnulty MD PATHOLOGY ORDERABLES [facility] [address] [place] [address] documented in this encounter Visit Diagnoses Diagnosis Noninflammatory disorder of cervix uteri, unspecified documented in this encounter Care Teams Nephrology Social Worker Relationship Specialty Start Date End Date Alli Nguyen MD [address] [place] [address] PCP - General 03/01/15 documented as of this encounter
--- OUTSIDE RECORDS SUMMARY | 2024-01-07 15:35 | XMS_ITS | Referral Summary ---
Author Organization [facility] Address [address] [place] [address] Care Team Providers Care Alum Plant Operator Name Role Phone Alli Nguyen MD Primary Care Provider [phone] Social History Tobacco Use Types Packs/Day Years Used Date Smoking Tobacco: Never Assessed Interpersonal Safety Answer Date Record ed Physically Hurt Never 11/20/2019 Verbally Threaten Not on file 11/20/2019 Sex and Gender Information Value Date Recorded Sex Assigned at Not on file Gender Identity Not on file Sexual Orientation Not on file Plan of Treatment Not on file Care Teams Alum Plant Operator Relationship Specialty Start Date End Date Alli Nguyen MD [address] [place] [address] PCP - General 03/01/15
--- OUTSIDE RECORDS SUMMARY | 2024-01-07 15:35 | XMS_ITS | Encounter Summary ---
Author Organization [facility] Address [address] [place] [address] Care Team Providers Care Senior Graphic Designer Name Role Phone Alli Nguyen MD Primary Care Provider [phone] Encounter Details Date Type Department Care Team (Late st Contact Info) Description 12/19/2021 Lab Requisition [facility] Pathology & Laboratory Medicine - [address] [address] Bhavya Mcnulty MD [facility] [place] [address] Encounter for other general examination Social History Tobacco Use Types Packs/Day Years [...] Date/Time Associated Diagnosis Comments SURGICAL PATHOLOGY Today 12/18/2021 14 :20 EDT Encounter for other general examination documented in this encounter Results * SURGICAL PATHOLOGY (12/18/2021 14:20 EDT) Note to Patient The following pathology results have been interpreted by your pathologist and may be available to you before your health provider has had the opportunity to review them. Please allow time for your provider to receive these results and explore management options, if applicable. 12/24/2021 13:56 [facility] Final Diagnosis A. FALLOPIAN TUBE, RIGHT, SALPINGECTOMY: - No significant pathologic features. B. FALLOPIAN TUBE, LEFT, SALPINGECTOMY: - No significant pathologic features. C. CERVIX, 9-3 O'CLOCK, LOOP ELECTROSURGICAL EXCISION PROCEDURE: - High-grade squamous intraepithelial lesion (DON 2-3), extending into endocervical glands. - Margins negative for dysplasia. D. CERVIX, 8-4 O'CLOCK, LOOP ELECTROSURGICAL EXCISION PROCEDURE: - Transformation zone mucosa, negative for dysplasia. 12/24/2021 13:56 [facility] Attestation There was significant resident/fellow involvement in the diagnostic evaluation of this case. By the signature below, the attending physician certifies that they have personally conducted a gross and/or microscopic examination of the described specimens and rendered or confirmed the above diagnosis. 12/24/2021 13:56 [facility] at 1356 Clinical History Desired sterilization; LEEP for DON II 12/24/2021 13:56 [facility] Gross Description A. Received in formalin labelled with proper patient identification (initials W, L) and 1. R fallopian tube is a segment of fimbriated fallopian tube (2.9 cm in length x 0.7 cm in diameter) and a segment of fallopian tube without fimbria (1.7 cm in length x 0.5 cm in diameter). The serosal surfaces are smooth, mcdaniel-prasad, and glistening. The specimen is serially sectioned to reveal white-mcdaniel cut surfaces with a central pinpoint to stellate lumen. No lesions are identified. The entire fimbria and a software sales representative cross-section are submitted in A1 and A2. B. Received in formalin labelled with proper patient identification (initials W, L) and 2. Left fallopian tube is a segment of fimbriated fallopian tube (4.7 cm in length, 0.4 cm to 0.8 cm in diameter). The serosal surface is smooth, mcdaniel-prasad, and glistening. The specimen is serially sectioned to reveal white-mcdaniel cut surfaces with a central pinpoint to stellate lumen. No lesions are identified. The entire fimbria and a software sales representative cross-section are submitted in B1 and B2. C. Received in formalin labelled with proper patient identification (initials W, L) and 3. Ectocervix 9-3 o'clock is an unoriented rectangular to crescent shaped cervical tissue with cauterized margins (2.7 x 1.6 cm, excised to a depth of 0.9 cm). There is an eccentric patent slit-like 0.4 cm in diameter os. The ectocervical mucosa is pink-white and smooth. The ectocervical margins are inked black and the endocervical margins are inked blue. The specimen is serially sectioned and entirely submitted in C1-C8. D. Received in formalin labelled with proper patient identification (initials W, L) and 4. Ectocervix 8-4 o'clock is an unoriented somewhat crescent shaped cervical tissue with cauterized margins (2.1 x 1.0 cm, excised to a depth of 0.6 cm). The ectocervical mucosa is mcdaniel-pink and smooth. The ectocervical margins are inked black and the possible endocervical margins are inked blue. The specimen is serially sectioned and entirely submitted in D1-D5. YIN GOULD(ASCP) 12/19/2021 15:56 12/24/2021 13:56 EDT [facility] Resident/Arian w: Mat Read DO 12/24/2021 13:56 EDT [facility] Performing Lab [facility] 13:56 EDT [facility] Scanned Images 12/24/2021 13:56 EDT [facility] Tissue ENTIRE WALL OF CERVIX / Unknown 12/18/2021 14:20 EDT 12/19/2021 8:30 EDT Tissue specimen (specimen) FALLOPIAN TUBE STRUCTURE / Unknown 12/18/2021 14:20 EDT 12/19/2021 8:30 EDT Tissue specimen (specimen) CERVIX UTERI STRUCTURE / Unknown 12/18/2021 14:20 EDT 12/19/2021 8:30 EDT Tissue specimen (specimen) CERVIX UTERI STRUCTURE / Unknown 12/18/2021 14:20 EDT 12/19/2021 8:30 EDT Bhavya Mcnulty MD PATHOLOGY ORDERABLES [facility] [address] [place] [address] documented in this encounter Visit Diagnoses Diagnosis Encounter for other general examination documented in this encounter Care Teams Senior Graphic Designer Relationship Specialty Start Date End Date Alli Nguyen MD [address] [place], [place] [id number] PCP - General 03/01/15 documented as of this encounter
--- OUTSIDE RECORDS SUMMARY | 2024-01-07 15:35 | XMS_ITS | Encounter Summary ---
Author Organization [facility] Address [facility] [place] [address] Care Team Providers Care Security Flex Utility Officer Name Role Phone Alli Nguyen MD Primary Care Provider [phone] Reason for Visit * Reason Comments ADHD neuropsychological e valuation Encounter Details Date Type Department Care Team (Late st Contact Info) Description 02/20/2011 9:00 AM EDT Office Visit Psychiatry [place] [address] Vincent Casarez, PhD [facility] PSYCHIATRY - [place] & [place] [address] ADHD (attention deficit hyperactivity disorder) (Primary Dx) Social History Tobacco Use Types Packs/Day Years Used Date Smoking Tobacco: Never Assessed Sex and Gender Information Value Date Recorded Sex Assigned at Not on file Gender Identity Not on file Sexual Orientation Not on file documented as of this encounter Progress Notes * Vincent Casarez, PhD - 04/25/2011 3:33 PM EST Name: Meron Artis ID#: [id number] Date of : 1995 Age: 15 -5 School: [employer] Current Grade: 12 Date of Evaluation: 02/20/2011 Handedness: Right Referred by: Alli Nguyen M.D. NEUROPSYCHOLOGICAL EVALUATION REPORT REASON FOR REFERRAL AND BACKGROUND Meron is a 15-year old female who presents with a history of ADHD, dyslexia, Bipolar disorder, and social interaction difficulties. A neuropsychological evaluation was requested in order to assess hercurrent level of functioning as well as areas of strengths and weaknesses to assist with future treatment planning. According to Meron???s mother (maternal grandmother), Meron has always had difficulty in school, particularly with reading and math. She is concerned that Meron has a hard time retaining learned information and that she can not do basic calculations (i.e. count change). Additional concerns included inappropriate social behaviors and a lack of peer relationships. Meron has been described as ???quirky?? and has always had a hard time making friends. Her mother reported that when she was in the 6th to 7th grade, Meron called herself ???Gelacio?? and was ???one of the boys?? due to excessive teasing by other girls at her school. Meron also reportedly has a tendency to take her clothes off in public and uses ???sexual talk?? . According to her mother, Meron has sensory issues and feels that she is often overwhelmed in social situations eliciting these types of behaviors. Although she has suspected Asperger???s in the past, Meron has never undergone formal evaluation for this. Meron has been diagnosed with Bipolar disorder, ADHD, and as having executive functioning problems in the past. Problems with attention included forgetfulness, distractibility, difficulty focusing, and a tendency to leave things unfinished. She is also argumentative and can reportedly become physically aggressive. She also has frequent mood swings in addition to anxiety with worries of suspicion (i.e., that ???things ar e going to get me?? ) and a fear of the dark. She has also been identified as having dyslexia by her school. At present, she denied symptoms of depression, but admitted that her mood ???depends on the moment?? . Meron was reportedly born full term weighing approximately 6 pounds with no associated complications. Meron???s biological mother was reportedly 13 years old when she gave to Meron and did not know that she was until two weeks prior to Meron???s , and thus, no care was provided. Use of alcohol or drugs during the was denied. Due to her mother???s young age, Meron???s grandmother legally adopted her and she has been in her custody since a very young age. Although specific time frames for Meron???s development were unknown, her mother reported that Meron had early intervention for speech and language therapy due to delays in acquisition of language. By Kindergarten, she had shown some improvement, although her mother indicated that she struggled to ???make connections?? with words and can forget words easily. Since that time, Meron has reportedly received speech and language therapy throughout school but with minimal improvement. She is also receiving vocational rehabilitation services through the state at this time. Medical history included weight fluctuations in which it is difficult for Meron to gain or maintain sufficient weight. She also wears glasses for nearsightedness. Although hearing is normal, she is reportedly sensitive to loud noises. A history of traumatic brain injury and/or seizures was denied. Still, her mother reported a history of head banging as a child. Sleep is reportedly problematic as Meron has a difficult time falling asleep and is often fearful and reported that she sees ???things?? at night. According to her, she currently sleeps about 5 hours per night. Meron is currently taking citalopram. Familial medical and psychiatric history is positive for dyslexia, ADHD, autism, depressi on, and PTSD. Meron is currently in the 12th grade at the [employer]. She is supported with an IEP and is in a modified curriculum with support across various subject areas. According to her mother, she continues to struggle in most areas including Reading, Writing, Math and Spelling at this time. She is concerned about her ability to function independently and placement following graduation. Reports from her teachers indicated that while she can sometimes be motivated and make good effort toward her work, she is also uncooperative and defensive at times. In addition, she appears to struggles with learning and in particular with short-term memory and attention. In June of 2010, Meron underwent a Developmental/Behavioral Medicine Evaluation by Joshua Bradley M.D. ([facility]), which detailed her history and assessed specific areas of her functioning. Based on this report, inconsistencies regarding her IQ were found across multiple evaluations beginning from the age of 4 (FSIQ =78) until the most recent at age 12 (FSIQ=90). Report of results from the Achenbach Youth Self Report completed at that time by Meron, indicated clinically significant elevations on the Withdrawn/Depressed, Social Problems, Thought Problems, and Attention Problems symptom scales. Further, adaptive behavior was measured using the [place]-II Adaptive Behavior Scales completed with the parent/caregiver. Results were reported as overall Adaptive Behavior Composite =59 (Communication=64; Daily Living Skills=57; Socialization Skills=60; Motor Dgecoj=935). TESTS AND PROCEDURES ADMINISTERED General: Clinical Interview Review of Records General Intellectual: Iliana Adult Intelligence Scale - 4th Ed. Integrated (WAIS-IV) Academic Achievement: Test of Written Spelling - 4th Ed. (TWS-4) Test of Word Reading Efficiency (TOWRE) Paul Jean Tests of Achievement, Third Edition (Reading Fluency) Attention and Executive Functions: Behavioral Rating Inventory of Executive Function (BRIEF) Ayde-Bowen Executive Function Scales (D-KEFS) [place] Card Sorting Test (WCST) Villanueva/w Continuous Performance Test (CPT) Oral Language: Verbal Fluency (D-KEFS) [place] Naming Test (BNT) Memory: [place] Verbal Learning Test, 2nd Ed. (CVLT-II) Sami Complex Figure Tests of Memory and Learning (TOMAL) Fine Motor Functions Screening: Finger Tapping Grooved Pegboard Complex Perceptual-Motor: Maryuri Developmental Test of Visual-Motor Integration, 6th Edition (VMI-6) Sami Figure, copy Behavioral Ratings: Achenbach Behavior Checklists (CBCL) Child Depression Inventory (CDI) Multidimensional Anxiety Scale for Children (MASC) Social Communication Questionnaire (SCQ) Adaptive Behavioral Assessment System, Second Edition (ABAS-II) BEHAVIORAL OBSERVATIONS Meron arrived to the testing session accompanied by her grandmother. She was casually dressed and appeared her age. She presented with guarded affect throughout the day. Although she was more talkative with her mother present during the interview, she generally kept to herself with minimal eye contact during test administration and conversation was minimal. Otherwise, speech and language output appeared age appropriate for syntax and tone, with low volume at times. Gross and fine motor functioning appeared unremarkable as she ambulated without difficulty and utilized an appropriate pencil lay health advocate. Attention and concentration was generally adequate throughout testing, however she seemed to give up easily on more difficult tasks. In general, she was cooperative throughout testing and appeared to give her best effort on all administered procedures. Thus, the following results are considered tara an accurate estimate of her current level of intellectual and cognitive functioning. TEST RESULTS Note: Except for intellectual test scores, data from tests appear at the end of the report. General Intellectual: The results of the current evaluation suggest that Damari??s estimated level of intellectual functioning falls within the borderline range. However, there were notable inconsistencies across indexes. Within this context, Damari??s verbal intellectual skills and perceptual reasoning abilities were each within the low average range, whereas her working memory and processing speed scores were each borderline. Within the verbal domain, while her verbal-conceptual reasoning (Similarities) was average,both expressive vocabulary (Vocabulary) and fund of knowledge (Information) were in the low averagerange. Performance on perceptual subtests was more variable. Meron achieved an average score on a measure of visual spatial construction (Block Design). However, mental rotation (Visual Puzzles) was low average, and abstract reasoning (Matrix Reasoning) was borderline. Her performance pattern on theMatrix Reasoning subtest was somewhat inconsistent, and she appeared to give up easily when unable to do items on the Visual Puzzles subtest. Additional details regarding Damari??s performance on subtests of the WAIS-IV are provided in the sections to follow. TABLE 1 WAIS-IV: IQ Scores, Factor Scores (SS) and Percentile Rankings (%ile) SS %ile Verbal Comprehension Index (VCI) 85 16 Perceptual Reasoning Index (NILSA) 86 18 Working Memory Index (WMI) 74 4 Processing Speed Index (PSI) 74 4 Full Scale IQ (FSIQ) 77 6 Note: SS have means of 100, s.d. of 15 TABLE 2 WAIS-IV: Core Subtest Scores and Percentile Rankings (%ile) raw ss % ile VCI Similarities 19 8 25 Vocabulary 20 7 16 Information 8 7 16 NILSA Block Design 45 10 50 Matrix Reasoning 12 6 9 Visual Puzzles 10 7 16 WMI Digit Span 17 5 5 Arithmetic 8 6 9 NILSA Coding 38 4 2 Symbol Search 24 6 9 Note: Subtest scaled scores (ss) have means of 10, s.d. of 3. Table 3 WAIS-IV: Supplemental and Integrated Subtest Scores and Percentile Rankings (%ile) raw ss %ile Digit Span DS Forward 5 3 1 DS Backward 5 6 9 DS Sequence 7 7 16 Note: Subtest scaled scores (ss) have means of 10, s.d. of 3. Academic Achievement: Reading The TOWRE is a test of speeded word reading for both sight words and phonetically legal nonsense syllables and words. It is well normed and standardized and is felt to identify poorly developed decoding skills. Consistent with her school identification, Meron???s total word reading efficiency was scored in the impaired range for her age. On Sight Word reading, her abilities were judged to fall in the borderline range. She made few errors and was slow to read the word list. On Phonemic Decoding, she made more errors, scoring in the impaired range. Errors were generally due to problems with vowel sounds. It was also noted that she stopped to yawn during the second subtest, likely impacting her score. This is consistent with her performance on a Reading Fluency task in which she scored in the borderline range. Overall, Meron demonstrated below age level reading efficiency skills. Spelling Meron was administered a standardized spelling test (TWS-4). On this measure, she demonstrated difficulty with sound symbol relationships as well as orthographic rules, with her score falling in the borderline range for her age (i.e. ???epext?? for expect, ???pilly?? for pile). Executive and Attention: Executive function rating The BRIEF is a standardized rating of everyday behaviors that reflect executive functions and difficulty. It is comprised of two major factors: the Behavioral Regulation Index represents a student???s ability to shift cognitive set and modulate emotions and behavior via appropriate inhibitory control. It is a pre- cursor to appropriate metacognitive problem solving. The Metacognitive Index represents a student???s ability to cognitively self-manage tasks and monitor one???s own performance. It represents the ability to initiate, plan, organize and sustain future-oriented problem solving in working memory. On the BRIEF completed by Meron???s grandmother, the negativity scale was elevated, suggesting that her grandmother???s view of Meron may be excessively negative or that she may have significant executive dysfunction. Within this context, the overall Global Executive Composite (GEC) as well as the CARMEN and CT were significantly elevated. Specific scale elevations were noted with regard to Meron???s ability to inhibit impulsive responses (Inhibit), adjust to changes in routine or task demands (Shift), modulate emotions (Emotional Control), initiate problem solving or activity (Initiate), sustain working memory (Working Memory), plan and organize problem solving approaches (Plan/Organize), organize her environment and materials (Organization of Materials), and monitor her own behavior (Monitor). Similarly, on the BRIEF completed by Meron???s teacher, significant scale elevations were noted on each subscale with the exception of Organization of Materials, which was within the expected range. Although another of Meron???s teachers completed the BRIEF, too many questions were left blank and theprotocol could not be scored. Overall, it appears that Meron has significant executive difficulties both at home and at school. Short-term and working memory Short-term or span memory is the ability to retain and repeat information as it is presented; working memory implies the ability to manipulate or transform information, or to hold information while working on other information. The difference between repeating digits forward and backwards is a goodexample of the difference between the two. On the digits forward subtest, Meron achieved a maximum span of just 4 numbers, scoring in the impaired range. Her ability to repeat digits backwards was slightly better, with a score in the borderline range, however her span was again limited to just 3 numbers. Sequencing of numbers was low average with a maximum span of 5. On another measure of working memory (Arithmetic), Meron scored in the borderline range. Thus, it appears that she has notable capacity limitations for both short-term memory and working memory for auditory information. Speed of Response Performance on measures of processing speed on the WAIS-IV including rapid coding of symbols and digits (Coding) and visual scanning and discrimination (Symbol Search) were somewhat variable with extremely low Coding and borderline Symbol Search scores. On either task, while she did not make any errors, she was slow to complete each of the tasks. Further testing requiring speeded processing abilities resulted in low average visual scanning including an error of omission. Number sequencing was average, whereas letter sequencing was impaired due to slowed processing and not errors. Simple motorspeed was average. Reaction times on a vigilance task were in the low average to borderline range, with notable variability across trials. Thus, it appears that while simple motor speed appears adequate, Meron has some visual scanning limitations as well as overall processing efficiency deficiencies. Vigilance and sustained attention The computerized CPT is a test of sustained attention. On the first task, the subject must respond to a specific letter, randomly presented on the computer screen. The second task provides a warning cue not available in the first task. Meron???s initial response accuracy was impaired due to significant omission and commission errors. On the second trial, her performance worsened with an increase of both omission and commission errors. On either task, her response times were significantly variable. Overall, her performance revealed notable attention problems both due to inattention and a tendency to respond impulsively. Cognitive flexibility and shifting The WCST is a test of nonverbal problem solving that requires the individual to select strategies for sorting cards by categories, and then adjusting their strategy when the rules are changed. Meron achieved just 3 of the 6 categories. Although she was able to complete the initial category without difficulty, she struggled to learn the task and made significant errors and repetitive errors in order to achieve subsequent categories, after which she appeared to give up as she did not appear motivated by verbal feedback. This is consistent with her performance on other tasks requiring ease of shifting of cognitive sets and flexibility (DKEFS Trails, Category Switching). Still, her poor number-letter switching may have been affected by difficulties with letter sequencing. Problem Solving As stated above, Meron had a difficult time on a novel problem solving task (WCST). Given her performance, it seems that even when feedback is given, she is only partially able to utilize that information in order to problem solve. Even when she able to achieve some success, she has to relearn the task. On another measure of problem solving requiring planning and organizational skills (TOWER), Meron also had difficulty completing each of the items due to poor planning, organization, and ability to learn the task, resulting in a borderline score. Oral Language: Conversational speech was generally limited to test responses and auditory comprehension appeared intact for all verbal instructions. Meron???s expressive vocabulary (WAIS-IV Vocabulary) was low average. Verbal letter fluency was borderline. She struggled on the first two trials but did better on the third; however responses were still not sufficient and suggested limited automatized knowledge of letters and letter sounds. On category fluency, her score was better and in the average range. On category switching, her responses were accurate, but her overall responses were limited resulting in borderline scores. Confrontation naming was deficient as she had trouble with naming of objects with some benefit from phonemic cueing (BNT: 5 of 14 phonemic cues). Memory and Learning: Verbal memory The list learning task (CVLT-II) is a learning and memory task in which the subject listens to a 16-item list, and repeats as many items as possible for 5 trials. After a distracter list is presented, delayed recall trials (with and without cueing) are presented, followed by a recognition trial. Meron???s overall acquisition of words was scored in the average range for her age. Her initial recall of the word list was low average and she demonstrated an inconsistent learning curve. Still, her score at the 5th learning trial was average. Administration of a distracter list was commensurate to her initial recall with no evidence of abnormal proactive interference. Performance on spontaneous and cued recall trials after a short delay were each average. Similarly, her performance on long delayed testing was average on both trials. Her ability to accurately recognize and discriminate words from the target list was average. Overall, despite some difficulties with short-term memory and learning inconsistency, she was able to adequately encode learned information for retrieval at a later point in time. Nonverbal memory eMron was asked to reproduce a complex figure (Sami) from memory at immediate and delayed time intervals. Her reproduction of the stimulus figure at immediate recall was scored within the average rangeas she was able to accurately depict the figure and many of the detailed components (Average). However, upon delayed testing, her drawing lacked sufficient detail, and was scored in the impaired range. Still, her recognition of the figure components was average. Further testing revealed high average abstract visual recognition memory and average memory for spatial location. Fine Motor Function Screening: Meron was administered the Grooved Pegboard in order to assess her fine motor speed and coordination. This task required her to place small pegs into a pegboard by aligning peg grooves with grooves inthe pegboard, using each hand individually. Meron scored in the average and high average range when using her right (dominant) and left (nondomnant) hand, respectively. On another measure of fine motor speed (Tapping), Meron had more difficulty when using her right hand (impaired) when compared to her performance with her left hand (low average). Overall, Meron???s fine motor speed and coordination appear to be better with her left hand. Visual Perception and Complex Perceptual - Motor Skills: Meron was asked to copy a complex figure. She utilized a segmented and unorganized approach to the figure resulting in inaccuracies in her representation of the figure despite inclusion of the details. As such, her copy was scored in the impaired range for her age. Visual motor integration of geometric figures was also below expectancy and in the borderline range. Visual perception without a motorcomponent was low average. Behavioral Ratings: The Child Behavior Checklist (CBCL) is a parental questionnaire that gathers information about a child???s activities, social relations, and school performance. On the CBCL completed by Meron???s grandmother, clinically significant scale elevations were noted on the Anxious/Depressed, Withdrawn/Depressed, Somatic Complaints, Social Problems, Thought Problems, and Attention Problems scales. Meron???s teacher also completed the Teacher Report Form (TRF) in order to obtain information regarding Meron???s behavioral and emotional functioning within the school. Significant scale elevations were also noted on the Anxious/Depressed, Withdrawn/Depressed, Somatic Complaints scales, but also on the Rule-Breaking Behavior scale. Borderline clinical concerns were seen on the Attention Problems and Aggressive Behavior scales. Another of Meron???s teachers completed the TRF resulting in elevationon the Withdrawn Depressed scale, as well as borderline elevation on the Attention Problems and Aggressive Behavior scales. Overall, Meron appears to have emotional and behavioral difficulties both athome and school. Meron completed the CDI and the MASC in order to assess her current symptoms of depression and anxiety. On the CDI, Meron indicated clinically significant overall symptoms of depression as well as significant elevations in each subscale area including Negative Mood, Interpersonal Problems, Ineffectiveness, Anhedonia, and Negative Self-Esteem. She endorsed suicidal thoughts without intent or plan atthis time. On the MASC, clinically significant anxiety symptoms were noted overall and on the Anxiety Disorder Index scale, suggesting increased likelihood of anxiety disorder. Specific scale elevations were noted in the areas of Physical Symptoms (Tense/Restlessness and Somatic/Autonomic) as well as Social Anxiety Symptoms (Humiliation/Rejection and Performance Fears). Separation/Panic symptoms were also significant. Based on her responses, Meron endorsed significant anxiety and depression symptoms at this time. The Social Communication Questionnaire was completed by Meron???s grandmother in order to learn about her social and communication history. Results indicated an overall score of 22 indicating concernsin this area warranting further evaluation. Specifically, significant endorsements were made with regard to items in each domain area including Reciprocal Social Interaction, Communication, and Restricted, Repetitive, and Stereotyped Patterns of Behavior. Adaptive Functioning: Meron???s grandmother also completed the Adaptive Behavior Assessment System, Second Edition (ABAS-II). Results indicated an overall General Adaptive Composite in the extremely low range for her age. Additional composite areas were also extremely low for Conceptual, Social, and Practical level skills. Within each of these areas, individual subscales were each within the extremely low range suggesting significant adaptive problems across all areas. SUMMARY AND RECOMMENDATIONS Meron is a year old who presents with a history of ADHD, dyslexia, Bipolar disorder, and social interaction difficulties. A neuropsychological evaluation was requested in order to assess her current level of functioning as well as areas of strengths and weaknesses to assist with future treatment planning. The results of the current evaluation suggest that Damari??s estimated level of intellectual functioning falls within the borderline range. However, there were notable inconsistencies across indexes. Within this context, Damari??s verbal intellectual skills and perceptual reasoning abilities were each within the low average range, whereas her Working Memory and Processing Speed scores were each borderline. Additional neuropsychological measures revealed a pattern of attention and executive functioning difficulties as well as language-based problems that each likely contribute to problems in daily functioning. Specifically, she demonstrated limited auditory short-term and working memory capacity as eliza denced by borderline to impaired performance across measures. The complex of deficits suggests primary problems in posterior language-regions with accurate speech-sound encoding. Inefficient processing was also noted with some relative weaknesses in visual scanning, while simple motor speed appeared adequate. Novel problem solving was difficult as she had problems learning the task even after shehad achieved some success and with consistent feedback on her performance. She also demonstrated problems shifting flexibly on several tasks and appeared to give up on at least one measure. This is consistent with reports from both Meron???s mother and teacher indicating significant executive functioning impairments with regard to both behavioral regulation and metacognitive problems at home and in the classroom. Meron???s oral language abilities ranged from low average to impaired, with notable weaknesses in auditory short-term memory, confrontation naming and letter fluency. Written language deficits were found that are consistent with her school identification and are a likely extension of her language impairment. Verbal learning and memory was average but notable for difficulties with short- term memoryand inconsistent learning pattern. Similarly, visual memory of a complex figure was somewhat inconsistent across trials, but again intact upon recognition. Visual recognition memory and memory for spatial location were high average and average, respectively. Meron???s fine motor speed and coordination appear to be better with her left hand, indicating left-hemisphere involvement that would coincide with language impairment. Additional weaknesses were noted with regard to visual motor integrationand organization that require integrating of fine motor output and cognitive organization, which are weak. Visual perceptual skills were low average. Social and emotional ratings completed by her mother and teacher indicated concerns for Meron regarding mood (anxious/depressed; withdrawn/depressed), as well as rule breaking and aggressive behaviors, and attention problems. Self- report measures also indicated significant depressive and anxiety symptomatology at this time. Further parental reports indicated significant concerns regarding Meron???shistory and current social and communication problems as well as deficient adaptive functioning at this time. Overall, in the context of low average core intellectual achievement, Meron presents with a combination of cognitive difficulties that separately and together play roles in her ability to function adequately on a daily basis. In combination with executive and language problems, Meron indicated significant anxiety and depressive symptoms. Given her weak problem solving abilities and limited communication skills, it is likely difficult for her to be able to interact and learn in an efficient mannerin a traditional academic setting, despite cognitive strengths in memory and learning. Mood dysregulation as well as other psychiatric problems may also contribute to her inefficient learning and ability to interact with her peers. In general, Meron requires extra accommodations in order to support her within the academic and social environment. Specifically, given problems with short- term and working memory, she may need extra repetitions of instructions, use of a notebook to write down lists, etc., and instruction of new lessons in small chunks or steps. Cueing to the task at hand may be helpful for her to remain on task as she has a tendency to be inattentive. Teaching her ???stop and think?? strategies to assist with impulsivity when responding to a question or even in social situations may be of benefit. Social skills instruction in order for Meron to learn appropriate social norms and boundaries with a group of peers is suggested. She may require assistance in coming up with and practicing pre-set scripts for when she finds herself in unexpected situations. Given her problems with language and reading, Meron should receive specialized academic instruction in these areas. Basic training in phoneme and phonological awareness appears needed. These would also support phonics-based reading programs. Programs such as Earobics and LiPS should be considered, while synthetic, code-based phonics instruction is also needed, prior to more meaning- based instruction. Meron???s generally appropriate social fa??addie may hide her inability to manage language and social interactions effectively, thus giving the impression that she understands these interactions, when she may not. This type of situation can lead to being taken advantage of as well. She may want to consider a skills training program to teach her a specific skills set in order to facilitate her independent functioning once she completes high school. A program such as [facility] may be able to provide her with such placement. Given her report and reports from her mother and teacher regarding problems with mood and other possible psychiatric problems, consultation with a psychiatrist and regular monitoring of her mood is recommended. While Meron did not endorse any active plans, the report of suicidal ideation is always serious. Individual and/or family therapy may be of benefit in order to address pertinent issues thatmay be contributing to her symptoms. In addition, in response to mother???s concerns regarding her history of and current social interaction and communication problems, further evaluation in this area is also suggested. Together these concerns may be addressed and provided further recommendations th rough the [facility] ([facility]) in Child Development at [facility]. Poor sleep quality may also contribute to problems with attention, depression, and other cognitive difficulties. Meron may benefit from practice of regular sleep hygiene such as going to sleep at the same time every night, creating a safe and relaxing environment for sleep (i.e., no television, cellphone, etc.), and following a consistent bedtime ritual. Relaxation techniques to help calm her when she is feeling scared or anxious may also help. Thank you for referring Meron for neuropsychological evaluation. Please contact us if you have any questions. Tammi Bruner Psy.D. Post-Doctoral Fellow Tina Casarez, Ph.D., [employer] [facility] [employer] Licensed Psychologist, #[id number] [place] Psychologist Doctorate, #[id number] This report was prepared by Tammi Bruner Psy.D., Postdoctoral Fellow in Pediatric Neuropsychology under the supervision of Mateo Casarez, Ph.D. cc: Rosalind Artis (Mother) [address] [facility] [address] [place] [address] Dr. Maynor Nguyen [address] [address] file Dr. Casarez???s file DATA TABLES DESCRIPTOR Z - Score M = 0, SD = 1 Percentile Rank Very Superior 2.0 and above 98 and above Superior 1.3 to 1.99 91 to 97 High Average 1.09 to 1.29 86 to 90 Average -1.0 to 1.0 15 to 85 Low Average -1.3 to -1.1 10 to 14 Borderline -2.01 to -1.4 2 to 9 Extremely Low -2.1 and below 1.9 and below Mildly Impaired - 2.69 to -2.1 0.38 to 1.9 Moderately Impaired -3.09 to -2.7 0.13 to 0.37 Severely Impaired -3.1 and below 0.12 and below NOTES: Standard scores (SS) have means of 100, and standard deviations of ?? 15; Scaled scores (ss) have a mean of 10, and standard deviations of ?? 3. T-Scores have means of 50, and standard deviations of ?? 10; Z-scores have means of 0, and standard deviations of ?? 1. TOWRE raw score SS % ile Sight Word Efficiency 62 71 3 Phonemic Decoding Efficiency 21 69 2 Total Efficiency 140 64 1 TWS-4 15 75 5 WJ-III READING FLUENCY 37 (1 73 4 raw score %ile BNT 46 Z = -2.18 1 Parent report Teacher 1 report BRIEF T-Score %ile T-Score %ile Inhibit 95 >99 77 95 Shift 82 >99 106 97 Emotional Control 73 96 82 97 Behavioral Regulation Index 88 >99 90 97 Initiate 83 >99 93 >99 Working Memory 92 >99 902 98 Plan/Organize 91 >99 81 98 Organization of Materials 71 >99 59 90 Monitor 81 >99 73 95 Metacognition Index 92 >99 84 98 General Executive Composite Note: BRIEF %brian >94 are significant, >90 of concern 92 >99 89 97 D-KEFS raw score ss %ile TRAIL MAKING Visual Scanning 29 7 16 Number Sequencing 36 8 25 Letter Sequencing 51 3 1 Number-Letter Switching 240 1 <1 Motor Speed 34 9 37 VERBAL FLUENCY Letter Fluency 20 5 5 Category Fluency 32 8 25 Category Switching 9 5 5 Category Switching Accuracy 7 6 9 TOWER Total Achievement 12 6 9 CPT raw score Z-score %ile K hit rate .90 -4.50 <1 Commission 12.00 -2.65 <1 Average reaction time (RT) 465.13 -1.25 10 Variability of RT 145.87 -2.06 2 AK hit rate .83 -8.00 <1 Commission 22.00 -1.25 10 Average reaction time (RT) 419.45 -1.81 4 Variability of RT 187.31 -2.77 <1 WCST raw score SS %ile Categories 3 - <1 Error percent 53 71 3 Perseverative error percent 29 68 2 Loss of set 1 - >16 CVLT-C raw score Z-score %ile Total Acquisition 57 T = 52 58 Trial 1 6 -1 16 Trial 2 14 - - Trial 3 12 - - Trial 4 11 - - Trial 5 14 0 50 Primacy 28 -0.5 32 Middle 46 0 50 Recency 26 0 50 Semantic Clustering 1.70 1 84 Serial Clustering .80 0 50 Distractor List 8 0.5 70 Short Delay Free Recall 10 -0.5 32 Short Delay Cued Recall 13 .00 50 Long Delay Free Recall 14 0.5 70 Long Delay Cued Recall 13 .00 50 Recognition 16 .00 50 Discriminability 3.40 .00 50 Note: CVLT-C Z-scores of +/-1.5 or less are considered clinically significant TOMAL raw score ss %ile Memory for Location 13 8 25 Abstract Visual Memory 37 12 75 SAMI raw score T-score %ile Copy 26 - <1 Immediate 23 46 34 Delayed 15 30 2 Recognition 21 47 38 raw score Z-score %ile GROOVED PEGBOARD Dominant hand 65 .10 55 Dominant errors 0 - - Non-Dominant hand 61 .86 81 Non-Dominant errors 0 - - FINGER TAPPING Dominant hand 34.60 -2.14 2 Non-Dominant hand 38.20 -.95 18 VMI-5 raw score ss %ile VMI 23 79 8 Visual 25 82 12 Parent CBCL Teacher 1 TRF Teacher 2 TRF ACHENBACH T-score %ile T-score %ile T-score %ile Scales Anxious/Depressed 78 >97 56 73 63 90 Withdrawn/Depressed 70 >97 96 >97 83 >97 Somatic Complaints 78 >97 75 >97 50 <50 Social Problems 78 >97 61 87 57 76 Thought Problems 90 >97 50 <50 57 76 Attention Problems 93 >97 69 97 68 97 Rule-Breaking Behavior 68 97 72 >97 69 97 Aggressive Behavior 64 92 66 95 62 89 Factors Internalizing Problems 77 .98 75 >98 71 >98 Externalizing Problems 67 96 68 97 65 93 Total Problems 77 >98 70 98 68 97 DSM-Oriented Scales Affective Problems 81 >97 73 >97 66 95 Anxiety Problems 78 >97 56 73 65 93 Somatic Problems 73 >97 79 >97 50 <50 ADHD Problems 74 >97 67 96 65 93 Oppositional-Deviant 59 81 70 >97 56 73 Conduct Problems 65 93 66 95 64 92 CBCL/TRF: for Scales & DSM Scales, %brian >98 are significant, %brian >95 of concern; for Factors, %brian >90 are significant, %brian >80 of concern CDI raw score T-Score %ile Total 34 89 >99 Negative Mood 7 75 99 Interpersonal Problems 3 74 99 Ineffectiveness 7 88 >99 Anhedonia 11 78 >99 Negative Self-Esteem 6 76 >99 MASC Total 103 89 >99 Physical Symptoms Total 31 76 >99 Tense/Restless 16 74 99 Somatic/Autonomic 15 73 99 Harm Avoidance Total 22 62 88 Perfectionism 9 54 66 Anxious Coping 13 64 92 Social Anxiety Total 25 77 >99 Humiliation/Rejection 14 74 99 Performance Fears 11 76 >99 Separation/Panic 25 90 >99 Anxiety Disorder Index 25 80 >99 Interpretations for the CDI and MASC T-Score Overall Symptoms/Complaints Above 70 Very much above average 66 to 70 Much above average 61 to 65 Above average 56 to 60 Slightly above average 45 to 55 Average 40 to 44 Slightly below average 35 to 39 Below average 30 to 34 Much below average Below 30 Very much below average ABAS-II: Subtest Summary Scores Sum of Scaled Scores Composite Score %ile Conceptual 5 53 0.1 Social 2 55 0.1 Practical 6 44 <0.1 General Adaptive Composite (GAC) 13 44 <0.1 Note: Composite scores have means of 100, s.d. of 15 Raw Score Scales Scores %ile Conceptual Communication 43 2 <1 Functional Pre-Academics 35 2 <1 Self-Direction 30 1 <1 Social Leisure 31 1 <1 Social 37 1 <1 Practical Community Use 15 1 <1 Home Living 40 1 <1 Health and Safety 46 3 1 Self-Care 31 1 <1 Note: scaled scores have a mean of 10, and s.d. of 3 documented in this encounter Plan of Treatment Not on file documented as of this encounter Visit Diagnoses Diagnosis ADHD (attention deficit hyperactivity disorder)- Primary Attention deficit disorder with hyperactivity documented in this encounter Care Teams Security Flex Utility Officer Relationship Specialty Start Date End Date Alli Nguyen MD [address] [place] [address] PCP - General 07/31/10 documented as of this encounter
--- OUTSIDE RECORDS SUMMARY | 2024-01-07 15:35 | XMS_ITS | Encounter Summary ---
Author Organization [facility] Address [address] [place] [address] Care Team Providers Care Bolt Cutter Name Role Phone Alli Nguyen MD Primary Care Provider [phone] Encounter Details Date Type Department Care Team (Late st Contact Info) Description 08/15/2022 Lab Requisition [facility] Pathology & Laboratory Medicine - [address] [id number] Outr Resulting Lab, Provider Social History Tobacco [...] Comments CHLAMYDIA/N. GONORRHOEAE AMPLIFIED NUCLEIC ACID Routine 08/15/2022 12:00 EDT documented in this encounter Results * CHLAMYDIA/N. GONORRHOEAE AMPLIFIED RNA (08/15/2022 12:00 EDT) Neisseria gonorrhoeae Result Negative Negative 08/16/2022 15:10 EDT [facility] Chlamydia trachomatis Result Negative Negative 08/16/2022 15:10 EDT [facility] Swab ENTIRE ENDOCERVIX / Unknown 08/15/2022 12:00 EDT 08/15/2022 22:25 EDT Provider Outr Resulting Lab MICROBIOLOGY - GENERAL ORDERABLES [facility] [address] [place] [address] documented in this encounter Visit Diagnoses Not on filedocumented in this encounter Care Teams Bolt Cutter Relationship Specialty Start Date End Date Alli Nguyen MD [address] [place], [place] [id number] PCP - General 03/01/15 documented as of this encounter
--- OUTSIDE RECORDS SUMMARY | 2024-01-07 15:35 | XMS_ITS | Encounter Summary ---
Author Organization [facility] Address [address] [place] [address] Care Team Providers Care Medical Coordinator Pesticide Use Name Role Phone Alli Nguyen MD Primary Care Provider [phone] Encounter Details Date Type Department Care Team (Late st Contact Info) Description 01/03/2021 Lab Requisition [facility] Pathology & Laboratory Medicine - [address] [address] Joni Lugo MD [address] [place], [place] [address] Encounter for other general examination Social History [...] Date/Time Associated Diagnosis Comments SURGICAL PATHOLOGY Today 01/02/2021 11 :15 EDT Encounter for other general examination documented in this encounter Results * SURGICAL PATHOLOGY (01/02/2021 11:15 EDT) Note to Patient The following pathology results have been interpreted by your pathologist and may be available to you before your health provider has had the opportunity to review them. Please allow time for your provider to receive these results and explore management options, if applicable. 01/06/2021 14:38 EDT [facility] Final Diagnosis A. SKIN OF ABDOMEN, LEFT LOWER QUADRANT, SHAVE BIOPSY: -Intradermal nevus. 01/06/2021 14:38 [facility] Attestation By the signature below, the attending physician certifies that they have 1) personally conducted a gross and/or microscopic examination of the described specimen(s), and/or personally interpreted the results of laboratory testing of the described specimen(s), and 2) personally rendered or confirmed the above diagnosis. 01/06/2021 14:38 [facility] at 1438 Clinical History Nevus 01/06/2021 14:38 [facility] Gross Description A. Received in formalin labelled with proper patient identification (initials W, L) and LLQ ABD is a 0.7 x 0.5 x 0.5 cm polypoid fragment of prasad to dark brown skin. The margin is inked. The specimen is bisected and entirely submitted in A1. YIN MANUEL(ASCP) 01/03/2021 10:18 01/06/2021 14:38 [facility] Performing Lab [facility] 01/06/2021 14:38 [facility] Scanned Images 01/06/2021 14:38 [facility] Tissue TISSUE SPECIMEN FROM SKIN / Unknown 01/02/2021 11:15 EDT 01/03/2021 8:23 EDT Joni Lugo MD PATHOLOGY ORDERABLES [facility] [address] [place] [address] documented in this encounter Visit Diagnoses Diagnosis Encounter for other general examination documented in this encounter Care Teams Medical Coordinator Pesticide Use Relationship Specialty Start Date End Date Alli Nguyen MD [address] [place] [address] PCP - General 03/01/15 documented as of this encounter
--- OUTSIDE RECORDS SUMMARY | 2024-01-07 15:35 | XMS_ITS | Encounter Summary ---
Author Organization [facility] Address [address] [place] [address] Care Team Providers Care Cheese Maker Name Role Phone Alli Nguyen MD Primary Care Provider [phone] Encounter Details Date Type Department Care Team (Late st Contact Info) Description 11/09/2021 Lab Requisition [facility] Pathology & Laboratory Medicine - [address] [address] Bhavya Mcnulty MD [facility] [place] [address] Encounter for other general examination Social History [...] Date/Time Associated Diagnosis Comments SURGICAL PATHOLOGY Today 11/08/2021 11 :45 EDT Encounter for other general examination documented in this encounter Results * SURGICAL PATHOLOGY (11/08/2021 11:45 EDT) Note to Patient The following pathology results have been interpreted by your pathologist and may be available to you before your health provider has had the opportunity to review them. Please allow time for your provider to receive these results and explore management options, if applicable. 11/12/2021 10:55 [facility] Final Diagnosis A. CERVIX, 6 O'CLOCK, BIOPSY: - High grade squamous intraepithelial lesion (DON 2). B. CERVIX, 11 O'CLOCK, BIOPSY: - High grade squamous intraepithelial lesion (DON 2). C. ENDOCERVIX, CURETTAGE: - Benign endocervical glands. 11/12/2021 10:55 [facility] Diagnosis Comment Immunoperoxidase stains were performed on section B to confirm the morphologic impression of high grade squamous intraepithelial lesion. Deeper levels of C have been examined. ANTIBODY(CLONE)(BL OCK):RESULT P16 (E6H4TM, [place]) (B1): strong block-like nuclear and cytoplasmic staining Ki67 (MIB-1) (K2, Leica) (B1): Increased nuclear staining in almost full thickness epithelium. NOTE: One or more of the reagents used in immunoperoxidase testing in this case may not have been cleared or approved by the U.S. Food and Drug Administration (FDA). The FDA has determined that such clearance or approval is not necessary. These tests are used for clinical purposes. They should not be regarded as investigational or for research. These reagents' performance characteristics have been determined by [facility] and/or by the referring laboratory. The positive and negative controls worked appropriately. If immunoperoxidase staining has been performed on alcohol fixed cytology specimens, which has not been fully validated, the assays should be interpreted with caution and correlated with clinical data. This laboratory is certified under the Clinical Laboratory Improvement Amendments of 1988 (CLIA-88) as qualified to perform high complexity clinical laboratory testing. 11/12/2021 10:55 [facility] Attestation There was significant resident/fellow involvement in the diagnostic evaluation of this case. By the signature below, the attending physician certifies that they have personally conducted a gross and/or microscopic examination of the described specimens and rendered or confirmed the above diagnosis. 11/12/2021 10:55 [facility] at 1055 Clinical History HGSIL 11/12/2021 10:55 [facility] Gross Description A. Received in formalin labelled with proper patient identification (initials W, L) and CX 6 o'clock is a single fragment of white tissue admixed with mucin (0.2 x 0.2 x 0.2 cm). The specimen is submitted entirely in A1. B. Received in formalin labelled with proper patient identification (initials W, L) and Cx 11 o'clock is a single fragment of white tissue (0.2 x 0.2 x 0.2 cm). The specimen is submitted entirely in B1. C. Received in formalin labelled with proper patient identification (initials W, L) and endo Cx curettage is an aggregate of blood tinged mucin (1.0 x 0.8 x 0.3 cm). The specimen is submitted entirely in C1. YIN RODRIGES(ASCP) 11/10/2021 15:05 11/12/2021 10:55 EDT [facility] Resident/Arian w: iEleen Canchola MD 11/12/2021 10:55 EDT [facility] Performing Lab [facility] 10:55 EDT [facility] Scanned Images 11/12/2021 10:55 EDT [facility] Tissue ENTIRE ENDOCERVIX / Unknown 11/08/2021 11:45 EDT 11/09/2021 9:07 EDT Tissue specimen (specimen) CERVIX UTERI STRUCTURE / Unknown 11/08/2021 11:45 EDT 11/09/2021 9:07 EDT Tissue specimen (specimen) ENDOCERVICAL STRUCTURE / Unknown 11/08/2021 11:45 EDT 11/09/2021 9:07 EDT Bhavya Mcnulty MD PATHOLOGY ORDERABLES [facility] [address] [place] [address] documented in this encounter Visit Diagnoses Diagnosis Encounter for other general examination documented in this encounter Care Teams Cheese Maker Relationship Specialty Start Date End Date Alli Nguyen MD [address] [place], [place] [id number] PCP - General 03/01/15 documented as of this encounter
--- OUTSIDE RECORDS SUMMARY | 2024-01-07 15:35 | XMS_ITS | Encounter Summary ---
Author Organization [facility] Address [address] [place] [address] Care Team Providers Care Fruit Or Nut Crops Farm Manager Name Role Phone Alli Nguyen MD Primary Care Provider [phone] Encounter Details Date Type Department Care Team (Late st Contact Info) Description 03/18/2022 Lab Requisition [facility] Pathology & Laboratory Medicine - [address] [id number] Outr Resulting Lab, Provider Social History Tobacco [...] Procedure Name Priority Date/Time Associated Diagnosis Comments CELIAC DISEASE PANEL Routine 03/18/2022 12:20 EST documented in this encounter Results * CELIAC DISEASE PANEL (03/18/2022 12:20 EST) Tissue Transglutaminase Antibody IGA <1.2 <4.0 U/mL 03/19/2022 10:29 EST [facility] Comment: A negative result may be due to IgA deficiency and does not rule out celiac disease. ? Negative: ??<4.0 U/mL ? Weak Positive: ??4.0 - 10.0 U/mL ? Positive: ??>10.0 U/mL Results were obtained with the [employer] QU[employer] Lite R h-tTG IgA CHECO assay on the [employer] DSX. IgA 173 85 - 499 mg/dL 03/19/2022 10:29 EST [facility] Celiac Disease Interpretation Negative Serology. Celiac disease unlikely. Approximately 10% of patients with celiac disease are seronegative. Patients who are already adhering to a gluten-free diet may also be seronegative. If celiac disease is highly clinically suspected, referral to gastroenterology for additional evaluation is recommended. 03/19/2022 10:29 EST [facility] Blood VENOUS BLOOD / Unknown 03/18/2022 12:20 EST 03/18/2022 21:16 EST Provider Outr Resulting Lab IMMUNOLOGY A ND SEROLOGY ORDERABLES [facility] [address] [place] [address] documented in this encounter Visit Diagnoses Not on filedocumented in this encounter Care Teams Fruit Or Nut Crops Farm Manager Relationship Specialty Start Date End Date Alli Nguyen MD [address] [place] [address] PCP - General 03/01/15 documented as of this encounter
--- OUTSIDE RECORDS SUMMARY | 2024-01-07 15:35 | XMS_ITS | Encounter Summary ---
Author Organization [facility] Address [facility] [place] [address] Care Team Providers Care Enrollment Eligibility Representative Name Role Phone Alli Nguyen MD Primary Care Provider [phone] Reason for Visit * Reason Onset Date Comments No Show 09/21/2018 behavior contrac t Encounter Details Date Type Department Care Team (Late st Contact Info) Description 09/21/2018 Telephone Neurology at [facility] [place] [id number] Phi Sharma MD [facility] [place] [address] No Show (behavior contract) Social History Tobacco Use Types Packs/Day Years Used Date Smoking Tobacco: Never Assessed Sex and Gender Information Value Date Recorded Sex Assigned at Not on file Gender Identity Not on file Sexual Orientation Not on file documented as of this encounter Miscellaneous Notes * Telephone Encounter - Nelsy Bah RN - 09/21/2018 10:20 AM EDT Primary H/A Provider: NONE 08/02/18, 09/20/18 no show to new patient appointment Cannot schedule until behavior agreement signed documented in this encounter Plan of Treatment Not on file documented as of this encounter Visit Diagnoses Not on filedocumented in this encounter Care Teams Enrollment Eligibility Representative Relationship Specialty Start Date End Date Alli Nguyen MD [address] [place] [address] PCP - General 07/31/10 documented as of this encounter
--- OUTSIDE RECORDS SUMMARY | 2024-01-07 15:35 | XMS_ITS | Encounter Summary ---
Author Organization [facility] Address [facility] [place] [address] Care Team Providers Care Guide Setter Name Role Phone Alli Nguyen MD Primary Care Provider [phone] Reason for Visit * Reason Comments Left Finger Pain Left index finger ma ss Encounter Details Date Type Department Care Team (Late st Contact Info) Description 08/19/2010 1:00 PM EDT Office [place] [address] Johnathan Parkinson MD [facility] [place] [address] Claudia Mullins MD [facility] [place] [address] Ganglion cyst of flexor tendon sheath (Primary Dx); Finger pain, left Discharge Disposition: Home Social History Tobacco Use Types Packs/Day Years Used Date Smoking Tobacco: Never Assessed Sex and Gender Information Value Date Recorded Sex Assigned at Not on file Gender Identity Not on file Sexual Orientation Not on file documented as of this encounter Progress Notes * Johnathan Parkinson MD - 08/20/2010 6:38 AM EDT I examined Meron Artis and I agree with Dr. Mullins's note. JOHNATHAN PARKINSON * Claudia Mullins MD - 08/19/2010 4:15 PM EDTAddended by: CLAUDIA MULLINS on: 08/19/2010 Modules accepted: Orders * Claudia Mullins MD - 08/19/2010 2:02 PM EDT ORTHOPAEDIC SURGERY OFFICE NOTE Subjective: Patient ID: Meron Artis is a [...] or tingling in her left index finger. Review of Systems Denies fevers, chills, paresthesias, numbness, tingling, nausea, and vomiting. Of note, she has had a somewhat persisting cough over recently which her PCP is following. She has also had issues with gaining and maintaining weight, although per the patient and her mother, her appetite is good. PAST MEDICAL HISTORY: Executive function disorder, ADHD, dyslexia. PAST SURGICAL HISTORY: None. MEDICATIONS: Ibuprofen PRN. ALLERGIES: NO KNOWN DRUG ALLERGIES. SOCIAL HISTORY: She is currently a high school student, but is not in school while she is being diagnosed with her learning disabilities. She plans to restart high school once diagnosis and treatment have been finalized. Denies tobacco and alcohol use. Objective: Physical Exam General: Thin, well-appearing 15-year-old woman, in no acute distress. She is alert and oriented. Left Upper Extremity: No tenderness to palpation over the wrist, hand, or fingers. She has a small 5 mm x 5 mm hard [...] DIP, and PIP joints. 2+ radial pulse. Assessment and Plan: Ms. Artis is a 15-year-old right-hand dominant woman who represents with a lump at the base of her left index finger. This is likely either a ganglion or potentially a vascular malformation. Given the size and location, it is difficult to see if it transilluminates. It is likely something that can be removed. However, prior to proceeding excision, we recommend an MRI to determine where exactly it is originating from in the base of the finger (tendon sheath vs joint), as this will help for surgical planning. Another option is tot proceed with Excision with no further imaging. However, this may result in a more extensive surgery, as we did not know exactly where the mass is originating from. After discussion with the patient and her mother, the decision was made to proceed with an MRI. We will see her back after the MRI to discuss possible excision at that time. Their questions were answered and they were in agreement with this plan. documented in this encounter Miscellaneous Notes * Miscellaneous - Brad, Fishing Reel Assembler - 08/23/2010 8:56 AM EDT documented in this encounter Plan of Treatment Not on file documented as of this encounter Visit Diagnoses Diagnosis Ganglion cyst of flexor tendon sheath- Primary Ganglion of tendon sheath Finger pain, left Pain in limb documented in this encounter Care Teams Guide Setter Relationship Specialty Start Date End Date Alil Nguyen MD [address] [place] [address] PCP - General 07/31/10 documented as of this encounter
--- OUTSIDE RECORDS SUMMARY | 2024-01-07 15:35 | XMS_ITS | Encounter Summary ---
Author Organization [facility] [place] [address] Care Team Providers Care Direct Care Counselor Name Role Phone Alli Nguyen MD Primary Care Provider [phone] Encounter Details Date Type Department Care Team (Latest Contact Info) Description 09/23/2010 2:10 PM EDT - 09/23/2010 11:59 PM EDT Hospital [place] [id number] Ganglion cyst of flexor tendon sheath Social History Tobacco Use Types Packs/Day Years Used Date Smoking Tobacco: Never Assessed Sex and Gender Information Value Date Recorded Sex Assigned at Not on file Gender Identity Not on file Sexual Orientation Not on file documented as of this encounter Last Filed Vital Signs Vital Sign Reading Time Taken Comments Blood Pressure - - Pulse - - Temperature - - Respiratory Rate - - Oxygen Saturation - - Inhaled Oxygen Concentration - - Weight 41.7 kg (92 lb) 09/23/2010 6:05 AM EDT Height - - Body Mass Index - - documented in this encounter Medications at Time of Discharge Medication Sig Dispensed Refills Start Date End Date sertraline (ZOLOFT) 50 mg tablet Take 50 mg by mouth daily. documented as of this encounter Plan of Treatment Not on file documented as of this encounter Procedures Procedure Name Priority Date/Time Associated Diagnosis Comments MRI HAND WITH/WO CONTRAST Routine 09/23/2010 3:54 PM EDT Ganglion of tendon sheath documented in this encounter Results * MRI HAND WITH/WO CONTRAST (09/23/2010 3:54 PM EDT) Anatomical Region Laterality Modality Hand Magnetic Resonan ce 09/23/2010 3:54 PM EDT Impressions 09/24/2010 3:58 PM EDT IMPRESSION: ?? Lobulated fluid signal intensity mass at the palmar aspect of the flexor tendons of the index finger characteristic in appearance of a ganglion cyst. ?? Narrative 09/24/2010 3:58 PM EDT MR OF THE RIGHT HAND, 09/23/10: ?? CLINICAL HISTORY: ??Left index finger mass. ??There is concern for a ganglion cyst versus other abnormalities such as vascular malformation. ?? TECHNIQUE: The study consists of a series of T1-weighted and T2-weighted images. ??Additional fat-suppressed T2-weighted images were acquired prior to and following the administration of 10 cc of Magnevist. ?? FINDINGS: A lobulated collection of high signal intensity on T2-weighted images arises from the palmar surface of the flexor tendon sheath of the index finger just distal to the A1 marimar. ??This lobulated collection measures approximately a centimeter in maximal diameter. ??It is eccentric in location and the bulk of the collection is located at the ulnar aspect of the finger. ??The structure is intermediate in signal intensity on T1-weighted images and there is no enhancement within the mass, though a small amount of enhancement is seen adjacent to this structure suggesting local irritation. ??The adjacent tendons are normal. ??There is no fluid distension of the tendon sheath. ??The tendons themselves are normal. ??No effusion is seen at the metacarpophalangeal joint. ?? Procedure Note Terrence Martines MD - 09/24/2010 MR OF THE RIGHT HAND, 09/23/10: CLINICAL HISTORY: Left index finger mass. There is concern for aganglion cyst versus other abnormalities such as vascular malformation. TECHNIQUE: The study consists of a series of T1-weighted and T2-weighted images. Additional fat-suppressed T2-weighted images were acquired priorto and following the administration of 10 cc of Magnevist. FINDINGS: A lobulated collection of high signal intensity on T2-weightedimages arises from the palmar surface of the flexor tendon sheath of the indexfinger just distal to the A1 marimar. This lobulated collection measuresapproximately a centimeter in maximal diameter. It is eccentric in location and thebulk of the collection is located at the ulnar aspect of the finger. Thestructure is intermediate in signal intensity on T1-weighted images and there is no enhancement within the mass, though a small amount of enhancement is seen adjacent to this structure suggesting local irritation. The adjacenttendons are normal. There is no fluid distension of the tendon sheath. Thetendons themselves are normal. No effusion is seen at the metacarpophalangealjoint. IMPRESSION IMPRESSION: Lobulated fluid signal intensity mass at the palmar aspect of the flexor tendons of the index finger characteristic in appearance of a ganglioncyst. Shimon Parkinson MD IMG MRI ORDERABLES documented in this encounter Visit Diagnoses Diagnosis Ganglion cyst of flexor tendon sheath Ganglion of tendon sheath documented in this encounter Administered Medications Inactive Administered Medications - up to 3 most recent administrations Medication Order MAR Action Action Date Dose Rate Site gadopentetate dimeglumine (MAGNEVIST) injection 8.34 mL 8.34 mL (0.2 mL/kg/dose ? 41.7 kg), Intravenous, ONCE PRN, Per Protocol, Starting on Thu09/23/10 at 0605, 1 dose, Until Thu09/23/10 at 1523 Given 09/23/2010 3:23 PM EDT 10 mLs documented in this encounter Care Teams Direct Care Counselor Relationship Specialty Start Date End Date Alli Nguyen MD [address] [place] [address] PCP - General 07/31/10 documented as of this encounter
--- OUTSIDE RECORDS SUMMARY | 2024-01-07 15:35 | XMS_ITS | Encounter Summary ---
Author Organization [facility] Address [address] [place] [address] Care Team Providers Care Mechanic Helper Name Role Phone Alli Nguyen MD Primary Care Provider [phone] Encounter Details Date Type Department Care Team (Late st Contact Info) Description 10/17/2021 Lab Requisition [facility] Pathology & Laboratory Medicine - [address] [id number] Outr Resulting Lab, Provider Social History Tobacco [...] Procedure Name Priority Date/Time Associated Diagnosis Comments HOLD SST Today 10/17/2021 9:20 EDT ESTRADIOL, ADULTS Today 10/17/2021 9:20 EDT FSH Today 10/17/2021 9:20 EDT documented in this encounter Results * HOLD SST (10/17/2021 9:20 EDT) Hold Hold 10/17/2021 19:01 EDT [facility] Blood VENOUS BLOOD / Unknown 10/17/2021 9:20 EDT 10/17/2021 17:49 EDT Provider Outr Resulting Lab LAB INFO SER VICE AND SUPPORT & PHONE RESULT Performing Organization Address [facility] de Phone Number [facility] [address] [place] [address] * FSH (10/17/2021 9:20 EDT) FSH 7.1 See Note mIU/mL 10/17/2021 19:20 EDT [facility] Blood VENOUS BLOOD / Unknown 10/17/2021 9:20 EDT 10/17/2021 17:49 EDT Narrative [facility] - 10/17/2021 19:20 EDT NOTE: Female FSH Reference Ranges (>= 13 Menstruating): PHYSIOLOGICAL STATUS ? REFERENCE RANGE ? Follicular (-12 to -4 days): ?? 2.5 - 10.2 mIU/mL Midcycle (-3 to +2 days): ?3.4 - 33.4 mIU/mL Luteal (+4 to +12 days): ? 1.5 - 9.1 mIU/mL Postmenopausal: ?23.0 - 116.3 mIU/mL Reference Ranges for female patients <13 years old have not been established. Provider Outr Resulting Lab CHEMISTRY & BLOOD GAS ORDERABLES Performing Organization Address [facility] Co de Phone Number [facility] [address] [place] [address] * ESTRADIOL, ADULTS (10/17/2021 9:20 EDT) Estradiol 25 See Note pg/mL 10/17/2021 18:52 EDT [facility] Comment: NOTE: FEMALE REFERENCE RANGES: MENSTRUATING ? By cycle day relative to LH peak Follicular ?(-12 to -4 days) ??20-144 pg/mL Midcycle ?(-3 to +2 days) ?? 64-357 pg/mL Luteal ?(+4 t0 +12 days) ??56-214 pg/mL POSTMENOPAUSAL ?<32 pg/mL *Cross reactivity with Fulvestrant could lead to a falsely elevated estradiol result in patients treated with this drug. Blood VENOUS BLOOD / Unknown 10/17/2021 9:20 EDT 10/17/2021 17:49 EDT Provider Outr Resulting Lab CHEMISTRY & BLOOD GAS ORDERABLES Performing Organization Address City/State/[facility] Co de Phone Number [facility] [address] [place] [address] documented in this encounter Visit Diagnoses Not on filedocumented in this encounter Care Teams Mechanic Helper Relationship Specialty Start Date End Date Alli Nguyen MD [address] [place] [address] PCP - General 03/01/15 documented as of this encounter
--- OUTSIDE RECORDS SUMMARY | 2024-01-07 15:35 | XMS_ITS | Clinical Summary ---
Author Organization [facility] [place] [address] Care Team Providers Care Telegraph Office Manager Name Role Phone Alli Nguyen MD Primary Care Provider [phone] Medications Medication Sig Dispensed Refills Start Date End Date Status sertraline (ZOLOFT) 50 mg tablet Take 50 mg by mouth daily. Active Active Problems Patient Care Coordination No te Formatting of this note migh t be different from the original. Primary H/A Provider: NONE 08/02/18, 09/20/18 no show to new patient appointment DO NOT schedule until behavior agreement signed Problem Noted Date Diagnosed Date Ganglion cyst of flexor tendon sheath 09/23/2010 Social History Tobacco Use Types Packs/Day Years Used Date Smoking Tobacco: Never Assessed Sex and Gender Information Value Date Recorded Sex Assigned at Not on file Gender Identity Not on file Sexual Orientation Not on file Last Filed Vital Signs Vital Sign Reading Time Taken Comments Blood Pressure - - Pulse - - Temperature - - Respiratory Rate - - Oxygen Saturation - - Inhaled Oxygen Concentration - - Weight 41.7 kg (92 lb) 09/23/2010 6:05 AM EDT Height - - Body Mass Index - - Plan of Treatment Health Maintenance Due Date Last Done Comments HIV screen 07/21/2011 Hepatitis C Screening 07/21/2011 Hepatitis B vaccine (0-59 yrs) (1) 2012 Tdap adult 2012 Tetanus vaccine 2012 HPV test 07/21/2023 PAP Smear 07/21/2023 Covid-19 Vaccine ( - 2022-24 season) 12/20/202302/2022 Influenza (Flu) vaccine (1 o f 1 - Influenza standard series) 12/20/2023 Care Teams Telegraph Office Manager Relationship Specialty Start Date End Date Alli Nguyen MD [address] [place] [address] PCP - General 07/31/10
--- OUTSIDE RECORDS SUMMARY | 2024-01-07 15:35 | XMS_ITS | Encounter Summary ---
Author Organization [facility] Address [address] [place] [address] Care Team Providers Care Pump Tester Name Role Phone Alli Nguyen MD Primary Care Provider [phone] Encounter Details Date Type Department Care Team (Late st Contact Info) Description 02/16/2023 Lab Requisition [facility] Pathology & Laboratory Medicine - Main [address] [address] Bhavya Mcnulty MD [facility] [place] [address] Encounter for other general examination Social History [...] Name Priority Date/Time Associated Diagnosis Comments PAP TEST Today 02/11/2023 10:40 EDT Encounter for other general examination HPV DNA DETECTION WITH GENOTYPING, PCR Today 02/11/2023 10:40 EDT Encounter for other general examination documented in this encounter Results * HUMAN PAPILLOMAVIRUS (HPV) DETECTION-HIGH RISK TYPES (02/11/2023 10:40 EDT) HPV other High Risk types, PCR Negative Negative 02/23/2023 16:39 [facility] Comment:No E6 or E7 mRNA is detected from HPV types 16,18,31,33,35,39,45,51,52,56,58,59,66, and 68 by neon technician mediated amplification. Pap Test CERVIX UTERI STRUCTURE / Unknown 02/11/2023 10:40 EDT 02/23/2023 8:26 EST Bhavya Mcnulty MD MICROBIOLOGY - GENER AL ORDERABLES [facility] [address] [place] [address] * PAP TEST (02/11/2023 10:40 EDT) Specimens A. Cervix and/or Endocervix , ThinPrep Imaging System with Manual Evaluation 02/23/2023 16:39 [facility] Specimen Adequacy Satisfactory for Evaluation - transformation zone component present Scant squamous epithelial component due to excess blood. 02/23/2023 16:39 [facility] General Categorization Negative for intraepithelial lesion or malignancy 02/23/2023 16:39 [facility] Descriptive Diagnosis Reactive cellular changes associated with inflammation present (includes repair). 02/23/2023 16:39 [facility] Educational Comments An additional slide was prepared and evaluated. 02/23/2023 16:39 [facility] Attestation By the signature below, the attending physician certifies that they have personally conducted a gross and/or microscopic examination of the described specimens and rendered or confirmed the above diagnosis. 02/23/2023 16:39 [facility] at 1639 Clinical History See below 02/24/20 16:39 [facility] HPV The result for the Human Papillomavirus (HPV) Detection-High Risk Types is Negative. No E6 or E7 mRNA is detected from HPV types 16,18,31,33,35,39 ,45,51,52,56,58,5 9,66, and 68 by neon technician mediated amplification.Meli ting was performed on specimen [id number] and was resulted on 02/23/2023 1639 EST by STEPHENIE, LAB INSTRUMENT RESULTS IN 02/23/2023 16:39 EST [facility] Performing Lab [facility] 02/23/2023 16:39 EST [facility] Scanned Images 02/23/2023 16:39 EST [facility] Pap Test CERVIX UTERI STRUCTURE / Unknown 02/11/2023 10:40 EDT 02/16/2023 10:10 EDT Bhavya Mcnulty MD PATHOLOGY ORDERABLES [facility] [address] [place] [address] documented in this encounter Visit Diagnoses Diagnosis Encounter for other general examination documented in this encounter Care Teams Pump Tester Relationship Specialty Start Date End Date Alli Nguyen MD [address] [place] [address] PCP - General 03/01/15 documented as of this encounter
--- OUTSIDE RECORDS SUMMARY | 2024-01-07 15:35 | XMS_ITS | Encounter Summary ---
Author Organization [facility] Address [address] [place] [address] Care Team Providers Care Shellfish Bed Worker Name Role Phone Alli Nguyen MD Primary Care Provider [phone] Encounter Details Date Type Department Care Team (Late st Contact Info) Description 10/11/2021 Lab Requisition [facility] Pathology & Laboratory Medicine - [address] [address] Bhavya Mcnulty MD [facility] [place] [address] Encounter for other general examination Social History [...] Date/Time Associated Diagnosis Comments PAP TEST Today 10/10/2021 10:30 EDT Encounter for other general examination documented in this encounter Results * PAP TEST (10/10/2021 10:30 EDT) Specimens A. Cervix and/or Endocervix , ThinPrep Imaging System with Manual Evaluation 10/15/2021 16:41 EDT [facility] Specimen Adequacy Satisfactory for Evaluation - transformation zone component present 10/15/2021 16:41 EDT [facility] General Categorization Epithelial Cell Abnormality 10/15/2021 16:41 EDT [facility] Descriptive Diagnosis Squamous Cell Abnormality - High grade squamous intraepithelial lesion (HSIL). 10/15/2021 16:41 EDT [facility] Educational Comments [facility] recommends following ASCCP's 2012 Updated Consensus Guidelines for the Management of Abnormal Cervical Cancer Screening Tests and Cancer Precursors (JLGTD, 2013; 17(5):S1-S27). Consensus guidelines are available online at www.asccp.org. 10/15/2021 16:41 T [facility] Attestation By the signature below, the attending physician certifies that they have personally conducted a gross and/or microscopic examination of the described specimens and rendered or confirmed the above diagnosis. 10/15/2021 16:41 [facility] at 1641 Clinical History See below 10/16/19 16:41 [facility] Performing Lab [facility] 10/15/2021 16:41 [facility] Scanned Images 10/15/2021 16:41 [facility] Papanicolaou smear specimen (specimen) CERVIX UTERI STRUCTURE / Unknown 10/10/2021 10:30 EDT 10/11/2021 13:57 EDT Bhavya Mcnulty MD PATHOLOGY ORDERABLES [facility] [address] [place] [address] documented in this encounter Visit Diagnoses Diagnosis Encounter for other general examination documented in this encounter Care Teams Shellfish Bed Worker Relationship Specialty Start Date End Date Alli Nguyen MD [address] [place], [place] [id number] PCP - General 03/01/15 documented as of this encounter
[2024-01-07 17:40] LABS: Abs Immature Grans 0.02 10^3/uL (0.0-0.06); Absolute Basophil Count 0.03 10^3/uL (0.0-0.2); Absolute Eosinophil Count 0.07 10^3/uL (0.0-0.7); Absolute Lymphocyte Count 1.61 10^3/uL (1.2-3.4); Absolute Monocyte Count 0.66 10^3/uL (0.1-0.8); Basophils % 0.5 %; Eosinophils % 1.1 %; HCT 38.9 % (36.0-46.0); HGB 12.7 g/dL (11.2-15.7); Immature Grans % 0.3 %; Lymphocytes % 24.8 %; MCH 30.7 pg (27.0-33.0); MCHC 32.6 % (32.0-36.0); MCV 94 fL (80-95); MPV 10.5 fL (8.0-11.0); Monocytes % 10.2 %; Neutrophils % 63.1 %; Platelet Count 286 10^3/uL (130-400); RBC 4.14 10^6/uL (3.93-5.22); RDW 12.2 % (11.7-14.6); RDW-SD 42.5 fL; WBC 6.49 10^3/uL (4.4-10.8)
[2024-01-07 19:02] LABS: ALT 17 U/L (14-59); AST 16 U/L (15-37); Albumin 3.9 g/dL (3.4-5.0); Alkaline Phosphatase 51 U/L (46-116); Anion Gap 7.3 mmol/L (3-11); BUN 8 mg/dL (7-18); Bilirubin, Total 0.51 mg/dL (0.2-1.0); CO2 28.7 mmol/L (21.0-32.0); CREATININE 0.7 mg/dL (0.55-1.02); Calcium 9.3 mg/dL (8.5-10.1); Chloride 106 mmol/L (98-107); Estimated GFR 119.24 (mL/min/1.73m2); Glucose 69 mg/dL (74-106); Magnesium 2.1 mg/dL (1.8-2.4); Sodium 142 mmol/L (136-145); Total Protein 7.2 g/dL (6.4-8.2)
[2024-01-07 19:18] LABS: Creatine Kinase 82 U/L (26-192)
[2024-01-07 19:21] LABS: C-Reactive Protein < 0.50 mg/dL (<or=0.5)
== END 2024-01-07 15:33 | disposition home or self-care (01) ==
LOC: NCHCN 15:32
PROVIDERS: PCP Internal Medicine; Visit Provider Family Medicine
DX: M79.18 Myalgia, other site (principal)
CPT/HCPCS: 80053; 82550; 83735; 85025; 86140

== ENCOUNTER 2024-02-15 21:37 | Outpatient (REF) | payer MEDICAID, SELFPAY ==
[2024-02-15 17:11] LABS: ESR 11 mm/hr (0-20)
[2024-02-15 17:40] LABS: TSH (W/Ref FT4) 2.18 uIU/mL (0.36-3.74)
[2024-02-15 17:47] LABS: C-Reactive Protein < 0.50 mg/dL (<or=0.5)
--- OUTSIDE RECORDS SUMMARY | 2024-02-15 21:43 | XMS_ITS | Encounter Summary ---
Author Organization [facility] Address [address] [place] [address] Care Team Providers Care Camp Guard Name Role Phone Alli Nguyen MD Primary Care Provider [phone] Encounter Details Date Type Department Care Team (Late st Contact Info) Description 10/11/2021 Lab Requisition [facility] Pathology & Laboratory Medicine - [address] [address] Bhavya Mcnulty MD [facility] [place] [address] Encounter for other general examination Social History [...] System with Manual Evaluation 10/15/2021 16:41 EDT [facility] Specimen Adequacy Satisfactory for Evaluation - transformation zone component present 10/15/2021 16:41 EDT [facility] General Categorization Epithelial Cell Abnormality 10/15/2021 16:41 EDT [facility] Descriptive Diagnosis Squamous Cell Abnormality - High grade squamous intraepithelial lesion (HSIL). 10/15/2021 16:41 EDT [facility] Educational Comments [facility] recommends following ASCCP's 2012 Updated Consensus Guidelines for the Management of Abnormal Cervical Cancer Screening Tests and Cancer Precursors (JLGTD, 2013; 17(5):S1-S27). Consensus guidelines are available online at www.asccp.org. 10/15/2021 16:41 T [facility] Attestation By the signature below, the attending physician certifies that they have personally conducted a gross and/or microscopic examination of the described specimens and rendered or confirmed the above diagnosis. 10/15/2021 16:41 [facility] at 1641 Clinical History See below 10/16/19 16:41 [facility] Performing Lab [facility] 10/15/2021 16:41 [facility] Scanned Images 10/15/2021 16:41 [facility] Papanicolaou smear specimen (specimen) CERVIX UTERI STRUCTURE / Unknown 10/10/2021 10:30 EDT 10/11/2021 13:57 EDT Bhavya Mcnulty MD PATHOLOGY ORDERABLES [facility] [address] [place] [address] documented in this encounter Visit Diagnoses Diagnosis Encounter for other general examination documented in this encounter Care Teams Camp Guard Relationship Specialty Start Date End Date Alli Nguyen MD [address] [place], [place] [phone] PCP - General 03/01/15 documented as of this encounter
--- OUTSIDE RECORDS SUMMARY | 2024-02-15 21:43 | XMS_ITS | Encounter Summary ---
Author Organization [facility] Address [address] [place] [address] Care Team Providers Care Brick Layer Name Role Phone Alli Nguyen MD Primary Care Provider [phone] Encounter Details Date Type Department Care Team (Late st Contact Info) Description 02/15/2024 Lab Requisition [place] Pathology & Laboratory Medicine - [facility] [address] [place], [place] [address] Outr Resulting Lab, Provider Social History Tobacco [...] as of this encounter Plan of Treatment Scheduled Orders Name Type Priority Associated Diagnoses Orde r Schedule CELIAC DISEASE PANEL Lab Routine Orde red: 02/15/2024 CCP ANTIBODIES Lab Routine Ordered: 1 ANTI NUCLEAR AB (JO), IFA Lab Routine Ordered: 02/15/2024 RHEUMATOID FACTOR Lab Routine Ordered : 02/15/2024 documented as of this encounter Visit Diagnoses Not on filedocumented in this encounter Care Teams Brick Layer Relationship Specialty Start Date End Date Alli Nguyen MD [address] [place] [address] PCP - General 03/01/15 documented as of this encounter
--- OUTSIDE RECORDS SUMMARY | 2024-02-15 21:43 | XMS_ITS | Encounter Summary ---
Author Organization [facility] Address [address] [place] [address] Care Team Providers Care Publicity Person Name Role Phone Alli Nguyen MD Primary Care Provider [phone] Encounter Details Date Type Department Care Team (Late st Contact Info) Description 11/09/2021 Lab Requisition [facility] Pathology & Laboratory Medicine - [address] [address] Bhavya Mcnulty MD [facility] [place] [address] Encounter for other general examination Social History [...] explore management options, if applicable. 11/12/2021 10:55 [facility] Final Diagnosis A. CERVIX, 6 O'CLOCK, BIOPSY: - High grade squamous intraepithelial lesion (DON 2). B. CERVIX, 11 O'CLOCK, BIOPSY: - High grade squamous intraepithelial lesion (DON 2). C. ENDOCERVIX, CURETTAGE: - Benign endocervical glands. 11/12/2021 10:55 [facility] Diagnosis Comment Immunoperoxidase stains were performed on section B to confirm the morphologic impression of high grade squamous intraepithelial lesion. Deeper levels of C have been examined. ANTIBODY(CLONE)(BL OCK):RESULT P16 (E6H4TM, [place]) (B1): strong block-like nuclear and cytoplasmic staining [...] performance characteristics have been determined by [facility] and/or by the referring laboratory. The [...] high complexity clinical laboratory testing. 11/12/2021 10:55 [facility] Attestation There was significant resident/fellow involvement in the diagnostic evaluation of this case. By the signature below, the attending physician certifies that they have personally conducted a gross and/or microscopic examination of the described specimens and rendered or confirmed the above diagnosis. 11/12/2021 10:55 [facility] at 1055 Clinical History HGSIL 11/12/2021 10:55 [facility] Gross Description A. Received in [...] YIN RODRIGES(ASCP) 11/10/2021 15:05 11/12/2021 10:55 EDT [facility] Resident/Arian w: Eileen Canchola MD 11/12/2021 10:55 EDT [facility] Performing Lab [facility] 10:55 EDT [facility] Scanned Images 11/12/2021 10:55 EDT [facility] Tissue ENTIRE ENDOCERVIX / Unknown 11/08/2021 11:45 EDT 11/09/2021 9:07 EDT Tissue specimen (specimen) CERVIX UTERI STRUCTURE / Unknown 11/08/2021 11:45 EDT 11/09/2021 9:07 EDT Tissue specimen (specimen) ENDOCERVICAL STRUCTURE / Unknown 11/08/2021 11:45 EDT 11/09/2021 9:07 EDT Bhavya Mcnulty MD PATHOLOGY ORDERABLES [facility] [address] [place] [address] documented in this encounter Visit Diagnoses Diagnosis Encounter for other general examination documented in this encounter Care Teams Publicity Person Relationship Specialty Start Date End Date Alli Nguyen MD [address] [place], [place] [phone] PCP - General 03/01/15 documented as of this encounter
--- OUTSIDE RECORDS SUMMARY | 2024-02-15 21:43 | XMS_ITS | Encounter Summary ---
Author Organization [facility] Address [address] [place] [address] Care Team Providers Care Clinical Rehab Specialist Name Role Phone Alli Nguyen MD Primary Care Provider [phone] Encounter Details Date Type Department Care Team (Late st Contact Info) Description 01/03/2021 Lab Requisition [facility] Pathology & Laboratory Medicine - [address] [address] Joni Lugo MD [address] [place], [place] [address] Encounter for other general examination Social History [...] management options, if applicable. 01/06/2021 14:38 EDT [facility] Final Diagnosis A. SKIN OF ABDOMEN, LEFT LOWER QUADRANT, SHAVE BIOPSY: -Intradermal nevus. 01/06/2021 14:38 [facility] Attestation By the signature below, the attending physician certifies that they have 1) personally conducted a gross and/or microscopic examination of the described specimen(s), and/or personally interpreted the results of laboratory testing of the described specimen(s), and 2) personally rendered or confirmed the above diagnosis. 01/06/2021 14:38 [facility] at 1438 Clinical History Nevus 01/06/2021 14:38 [facility] Gross Description A. Received in formalin labelled with proper patient identification (initials W, L) and LLQ ABD is a 0.7 x 0.5 x 0.5 cm polypoid fragment of prasad to dark brown skin. The margin is inked. The specimen is bisected and entirely submitted in A1. YIN MANUEL(ASCP) 01/03/2021 10:18 01/06/2021 14:38 [facility] Performing Lab [facility] 01/06/2021 14:38 [facility] Scanned Images 01/06/2021 14:38 [facility] Tissue TISSUE SPECIMEN FROM SKIN / Unknown 01/02/2021 11:15 EDT 01/03/2021 8:23 EDT Joni Lugo MD PATHOLOGY ORDERABLES [facility] [address] [place] [address] documented in this encounter Visit Diagnoses Diagnosis Encounter for other general examination documented in this encounter Care Teams Clinical Rehab Specialist Relationship Specialty Start Date End Date Alli Nguyen MD [address] [place] [address] PCP - General 03/01/15 documented as of this encounter
--- OUTSIDE RECORDS SUMMARY | 2024-02-15 21:43 | XMS_ITS | Encounter Summary ---
Author Organization [facility] Address [address] [place] [address] Care Team Providers Care Instrument Engineer Name Role Phone Alli Nguyen MD Primary Care Provider [phone] Encounter Details Date Type Department Care Team (Late st Contact Info) Description 08/15/2022 Lab Requisition [facility] Pathology & Laboratory Medicine - [address] [address] Outr Resulting Lab, Provider Social History Tobacco [...] gonorrhoeae Result Negative Negative 08/16/2022 15:10 EDT [facility] Chlamydia trachomatis Result Negative Negative 08/16/2022 15:10 EDT [facility] Swab ENTIRE ENDOCERVIX / Unknown 08/15/2022 12:00 EDT 08/15/2022 22:25 EDT Provider Outr Resulting Lab MICROBIOLOGY - GENERAL ORDERABLES [facility] [address] [place] [address] documented in this encounter Visit Diagnoses Not on filedocumented in this encounter Care Teams Instrument Engineer Relationship Specialty Start Date End Date Alli Nguyen MD [address] [place], [place] [phone] PCP - General 03/01/15 documented as of this encounter
--- OUTSIDE RECORDS SUMMARY | 2024-02-15 21:43 | XMS_ITS | Encounter Summary ---
Author Organization [facility] Address [address] [place] [address] Care Team Providers Care Orthodontist Vice President Name Role Phone Alli Nguyen MD Primary Care Provider [phone] Encounter Details Date Type Department Care Team (Late st Contact Info) Description 12/19/2021 Lab Requisition [facility] Pathology & Laboratory Medicine - [address] [address] Bhavya Mcnulty MD [facility] [place] [address] Encounter for other general examination Social History [...] explore management options, if applicable. 12/24/2021 13:56 [facility] Final Diagnosis A. FALLOPIAN TUBE, [...] zone mucosa, negative for dysplasia. 12/24/2021 13:56 [facility] Attestation There was significant resident/fellow involvement in the diagnostic evaluation of this case. By the signature below, the attending physician certifies that they have personally conducted a gross and/or microscopic examination of the described specimens and rendered or confirmed the above diagnosis. 12/24/2021 13:56 [facility] at 1356 Clinical History Desired sterilization; LEEP for DON II 12/24/2021 13:56 [facility] Gross Description A. Received [...] are identified. The entire fimbria and a tour sales representative cross-section are submitted in A1 [...] are identified. The entire fimbria and a tour sales representative cross-section are submitted in B1 [...] YIN GOULD(ASCP) 12/19/2021 15:56 12/24/2021 13:56 EDT [facility] Resident/Arian w: Mat Read DO 12/24/2021 13:56 EDT [facility] Performing Lab [facility] 13:56 EDT [facility] Scanned Images 12/24/2021 13:56 EDT [facility] Tissue ENTIRE WALL OF CERVIX / Unknown 12/18/2021 14:20 EDT 12/19/2021 8:30 EDT Tissue specimen (specimen) FALLOPIAN TUBE STRUCTURE / Unknown 12/18/2021 14:20 EDT 12/19/2021 8:30 EDT Tissue specimen (specimen) CERVIX UTERI STRUCTURE / Unknown 12/18/2021 14:20 EDT 12/19/2021 8:30 EDT Tissue specimen (specimen) CERVIX UTERI STRUCTURE / Unknown 12/18/2021 14:20 EDT 12/19/2021 8:30 EDT Bhavya Mcunlty MD PATHOLOGY ORDERABLES [facility] [address] [place] [address] documented in this encounter Visit Diagnoses Diagnosis Encounter for other general examination documented in this encounter Care Teams Orthodontist Vice President Relationship Specialty Start Date End Date Alli Nguyen MD [address] [place], [place] [phone] PCP - General 03/01/15 documented as of this encounter
--- OUTSIDE RECORDS SUMMARY | 2024-02-15 21:43 | XMS_ITS | Clinical Summary ---
Author Organization [facility] Address [address] [place] [address] Care Team Providers Care Associate Professor Of Philosophy Name Role Phone Alli Nguyen MD Primary Care Provider [phone] Encounters Date Type Department Care Team Description 02/15/2024 Lab Requisition [facility] Pathology & Laboratory [address] [address] Outr Resulting Lab, Provider 02/15/2024 Lab Requisition [facility] Pathology & Laboratory [facility] [address] [place] [address] Outr Resulting Lab, Provider from Last 3 Months Social History Tobacco Use Types Packs/Day Years [...] 2022 Meron Artis Personal/Family Self 1995 [address] [facility] [address] [place] [address] Meron Artis Personal/Family Self 1995 [address] [facility] [facility] [address] [place] [address] Meron Artis Personal/Family Self [address] [place] [address] [place] [address] Care Teams Associate Professor Of Philosophy Relationship Specialty Start Date End Date Alli Nguyen MD [address] [place] [address] PCP - General 03/01/15
--- OUTSIDE RECORDS SUMMARY | 2024-02-15 21:43 | XMS_ITS | Encounter Summary ---
Author Organization [facility] Address [address] [place] [address] Care Team Providers Care Pick Pulling Machine Tender Name Role Phone Alli Nguyen MD Primary Care Provider [phone] Encounter Details Date Type Department Care Team (Late st Contact Info) Description 10/17/2021 Lab Requisition [facility] Pathology & Laboratory Medicine - [address] [address] Outr Resulting Lab, Provider Social History Tobacco [...] 9:20 EDT) Hold Hold 10/17/2021 19:01 EDT [facility] Blood VENOUS BLOOD / Unknown 10/17/2021 9:20 EDT 10/17/2021 17:49 EDT Provider Outr Resulting Lab LAB INFO SER VICE AND SUPPORT & PHONE RESULT Performing Organization Address [facility] de Phone Number [facility] [address] [place] [address] * FSH (10/17/2021 9:20 EDT) FSH 7.1 See Note mIU/mL 10/17/2021 19:20 EDT [facility] Blood VENOUS BLOOD / Unknown 10/17/2021 9:20 EDT 10/17/2021 17:49 EDT Narrative [facility] - 10/17/2021 19:20 EDT NOTE: [...] & BLOOD GAS ORDERABLES Performing Organization Address [facility] Co de Phone Number [facility] [address] [place] [address] * ESTRADIOL, ADULTS (10/17/2021 9:20 EDT) Estradiol 25 See Note pg/mL 10/17/2021 18:52 EDT [facility] Comment: NOTE: FEMALE REFERENCE RANGES: [...] & BLOOD GAS ORDERABLES Performing Organization Address City/State/[facility] Co de Phone Number [facility] [address] [place] [address] documented in this encounter Visit Diagnoses Not on filedocumented in this encounter Care Teams Pick Pulling Machine Tender Relationship Specialty Start Date End Date Alli Nguyen MD [address] [place] [address] PCP - General 03/01/15 documented as of this encounter
--- OUTSIDE RECORDS SUMMARY | 2024-02-15 21:43 | XMS_ITS | Encounter Summary ---
Author Organization [facility] Address [address] [place] [address] Care Team Providers Care Gas Engine Operator Name Role Phone Alli Nguyen MD Primary Care Provider [phone] Encounter Details Date Type Department Care Team (Late st Contact Info) Description 02/15/2024 Lab Requisition [facility] Pathology & Laboratory Medicine - [address] [address] Outr Resulting Lab, Provider Social History Tobacco [...] Type Priority Associated Diagnoses Orde r Schedule IGG Lab Routine Ordered: 02/14 documented as of this encounter Visit Diagnoses Not on filedocumented in this encounter Care Teams Gas Engine Operator Relationship Specialty Start Date End Date Alli Nguyen MD [address] [place] [address] PCP - General 03/01/15 documented as of this encounter
--- OUTSIDE RECORDS SUMMARY | 2024-02-15 21:43 | XMS_ITS | Referral Summary ---
Author Organization [facility] Address [address] [place] [address] Care Team Providers Care Lumber Press Operator Name Role Phone Alli Nguyen MD Primary Care Provider [phone] Encounters Date Type Department Care Team Description 02/15/2024 Lab Requisition [facility] Pathology & Laboratory [address] [address] Outr Resulting Lab, Provider 02/15/2024 Lab Requisition [facility] Pathology & Laboratory [facility] [address] [place] [address] Outr Resulting Lab, Provider from Last 3 [...] file Plan of Treatment Not on file [address] [place] [address] Meron Artis Personal/Family Self [address] [place] [address] [address] [place] [address] Meron Artis Personal/Family Self [address] [place] [address] [place] [address] Meron Artis Personal/Family Self [address] [place] [address] Care Teams Lumber Press Operator Relationship Specialty Start Date End Date Alli Nguyen MD [address] [place] [address] PCP - General 03/01/15
--- OUTSIDE RECORDS SUMMARY | 2024-02-15 21:43 | XMS_ITS | Encounter Summary ---
Author Organization [facility] Address [address] [place] [address] Care Team Providers Care Street Openings Inspector Name Role Phone Alli Nguyen MD Primary Care Provider [phone] Encounter Details Date Type Department Care Team (Late st Contact Info) Description 02/16/2023 Lab Requisition [facility] Pathology & Laboratory Medicine - Main [address] [address] Bhavya Mcnulty MD [facility] [place] [address] Encounter for other general examination Social History [...] Risk types, PCR Negative Negative 02/23/2023 16:39 [facility] Comment:No E6 or E7 mRNA is detected from HPV types 16,18,31,33,35,39,45,51,52,56,58,59,66, and 68 by adjunct psychology instructor mediated amplification. Pap Test CERVIX UTERI STRUCTURE / Unknown 02/11/2023 10:40 EDT 02/23/2023 8:26 EST Bhavya Mcnulty MD MICROBIOLOGY - GENER AL ORDERABLES [facility] [address] [place] [address] * PAP TEST (02/11/2023 10:40 EDT) Specimens A. Cervix and/or Endocervix , ThinPrep Imaging System with Manual Evaluation 02/23/2023 16:39 [facility] Specimen Adequacy Satisfactory for Evaluation - transformation zone component present Scant squamous epithelial component due to excess blood. 02/23/2023 16:39 [facility] General Categorization Negative for intraepithelial lesion or malignancy 02/23/2023 16:39 [facility] Descriptive Diagnosis Reactive cellular changes associated with inflammation present (includes repair). 02/23/2023 16:39 [facility] Educational Comments An additional slide was prepared and evaluated. 02/23/2023 16:39 [facility] Attestation By the signature below, the attending physician certifies that they have personally conducted a gross and/or microscopic examination of the described specimens and rendered or confirmed the above diagnosis. 02/23/2023 16:39 [facility] at 1639 Clinical History See below 02/24/20 16:39 [facility] HPV The result for the Human Papillomavirus (HPV) Detection-High Risk Types is Negative. No E6 or E7 mRNA is detected from HPV types 16,18,31,33,35,39 ,45,51,52,56,58,5 9,66, and 68 by adjunct psychology instructor mediated amplification.Meil ting was performed on specimen [id number] and was resulted on 02/23/2023 1639 EST by STEPHENIE, LAB INSTRUMENT RESULTS IN 02/23/2023 16:39 EST [facility] Performing Lab [facility] 02/23/2023 16:39 EST [facility] Scanned Images 02/23/2023 16:39 EST [facility] Pap Test CERVIX UTERI STRUCTURE / Unknown 02/11/2023 10:40 EDT 02/16/2023 10:10 EDT Bhavya Mcnulty MD PATHOLOGY ORDERABLES [facility] [address] [place] [address] documented in this encounter Visit Diagnoses Diagnosis Encounter for other general examination documented in this encounter Care Teams Street Openings Inspector Relationship Specialty Start Date End Date Alli Nguyen MD [address] [place] [address] PCP - General 03/01/15 documented as of this encounter
--- OUTSIDE RECORDS SUMMARY | 2024-02-15 21:43 | XMS_ITS | Encounter Summary ---
Author Organization [facility] Address [address] [place] [address] Care Team Providers Care Associate Director Of Nursing Name Role Phone Alli Nguyen MD Primary Care Provider [phone] Encounter Details Date Type Department Care Team (Late st Contact Info) Description 10/10/2021 Lab Re[address] [facility] Pathology & Laboratory Medicine - [address] [address] Outr Resulting Lab, Provider Social History Tobacco [...] gonorrhoeae Result Negative Negative 10/11/2021 14:44 EDT [facility] Chlamydia trachomatis Result Negative Negative 10/11/2021 14:44 EDT [facility] Swab ENTIRE ENDOCERVIX / Unknown 10/10/2021 10:30 EDT 10/10/2021 22:47 EDT Provider Outr Resulting Lab MICROBIOLOGY - GENERAL ORDERABLES [facility] [address] [place] [address] documented in this encounter Visit Diagnoses Not on filedocumented in this encounter Care Teams Associate Director Of Nursing Relationship Specialty Start Date End Date Alli Nguyen MD [address] [place], [place] [id number] PCP - General 03/01/15 documented as of this encounter
--- OUTSIDE RECORDS SUMMARY | 2024-02-15 21:43 | XMS_ITS | Encounter Summary ---
Author Organization [facility] Address [address] [place] [address] Care Team Providers Care Itinerant Teacher Assistant Name Role Phone Alli Nguyen MD Primary Care Provider [phone] Encounter Details Date Type Department Care Team (Late st Contact Info) Description 03/18/2022 Lab Requisition [facility] Pathology & Laboratory Medicine - [address] [id number] Outr Resulting Lab, Provider Social History Tobacco [...] IGA <1.2 <4.0 U/mL 03/19/2022 10:29 EST [facility] Comment: A negative result may be due to IgA deficiency and does not rule out celiac disease. ? Negative: ??<4.0 U/mL ? Weak Positive: ??4.0 - 10.0 U/mL ? Positive: ??>10.0 U/mL Results were obtained with the ValidusVA QUANTA Lite R h-tTG IgA CHECO assay on the Ule DSX. IgA 173 85 - 499 mg/dL 03/19/2022 10:29 EST [facility] Celiac Disease Interpretation Negative Serology. Celiac disease unlikely. Approximately 10% of patients with celiac disease are seronegative. Patients who are already adhering to a gluten-free diet may also be seronegative. If celiac disease is highly clinically suspected, referral to gastroenterology for additional evaluation is recommended. 03/19/2022 10:29 EST [facility] Blood VENOUS BLOOD / Unknown 03/18/2022 12:20 EST 03/18/2022 21:16 EST Provider Outr Resulting Lab IMMUNOLOGY A ND SEROLOGY ORDERABLES [facility] [address] [place] [address] documented in this encounter Visit Diagnoses Not on filedocumented in this encounter Care Teams Itinerant Teacher Assistant Relationship Specialty Start Date End Date Alli Nguyen MD [address] [place] [address] PCP - General 03/01/15 documented as of this encounter
--- OUTSIDE RECORDS SUMMARY | 2024-02-15 21:43 | XMS_ITS | Encounter Summary ---
Author Organization [facility] Address [address] [place] [address] Care Team Providers Care Home School Teacher Name Role Phone Alli Nguyen MD Primary Care Provider [phone] Encounter Details Date Type Department Care Team (Latest Contact Info) Description 08/27/[address] [facility] Pathology & Laboratory Medicine - [address] [address] Bhavya Mcnulty MD [address] [place] [address] [address] [place] [address] Noninflammatory disorder of cervix uteri, unspecified Social [...] explore management options, if applicable. 09/02/2022 10:50 [facility] Final Diagnosis A. ENDOCERVIX, CURETTAGE: - Predominantly blood with rare fragment of inflammatory debris and minute fragment of benign squamous epithelium. B. ENDOMETRIUM, CURETTAGE: - Predominantly blood with rare fragment of squamous cell epithelium. - No endometrial tissue present for evaluation. 09/02/2022 10:50 [facility] Diagnosis Comment Deeper sections have been examined on parts A and B. 09/02/2022 10:50 [facility] Attestation There was significant resident/fellow involvement in the diagnostic evaluation of this case. By the signature below, the attending physician certifies that they have personally conducted a gross and/or microscopic examination of the described specimens and rendered or confirmed the above diagnosis. 09/02/2022 10:50 [facility] at 1050 Clinical History Cervix abnormality, abnl cervical bleeding 09/02/2022 10:50 [facility] Gross Description A. [...] B1. Debra Alicea 08/28/2022 12:14 09/02/2022 10:50 [facility] Resident/Arian w: Jenn Encarnacion MD 09/02/2022 10:50 [facility] Performing Lab [facility] 09/02/2022 10:50 [facility] Scanned Images 09/02/2022 10:50 [facility] Tissue ENTIRE ENDOMETRIUM / Unknown 08/27/2022 10:42 EDT 08/27/2022 16:48 EDT Tissue specimen (specimen) ENDOMETRIAL STRUCTURE / Unknown 08/27/2022 10:42 EDT 08/27/2022 16:48 EDT Bhavya Mcnulty MD PATHOLOGY ORDERABLES [facility] [address] [place] [address] documented in this encounter Visit Diagnoses Diagnosis Noninflammatory disorder of cervix uteri, unspecified documented in this encounter Care Teams Home School Teacher Relationship Specialty Start Date End Date Alli Nguyen MD [address] [place] [address] PCP - General 03/01/15 documented as of this encounter
--- OUTSIDE RECORDS SUMMARY | 2024-02-15 21:44 | XMS_ITS | Encounter Summary ---
[place] [address] Care Team Providers Care Principal Embedded Software Engineer Name Role Phone Soni Wade MD Primary Care Provider Reason for Referral * Diagnostic Test (Routine) - Authorized Specialty Diagnoses / Procedures Referred By Andreia reddy Referred To Contact Gastroenterology Diagnoses Bloating Chronic abdominal pain Heartburn Substernal chest pain Chronic nausea Unintentional weight loss Intractable migraine with aura without status migrainosus HBT - lactulose - bloating Procedures Breath Hydrogen Test Shelby Rogers APRN [facility] [place] [address] [facility] [address] [place] [id number] Referral ID Status Reason Start Date Expiration Date Visits Requested Visits Authorized [id number] Authorized Consult, Test & Treat 02/08/2024 02/07/2025 1 1 Reason for Visit * Consultation (Routine) - Authorized Specialty Diagnoses / Procedures Referred By Andreia reddy Referred To Contact Gastroenterology Diagnoses Abdominal distension (gaseous) ABDOMINAL BLOATING Soni Wade MD [address] [place] [address] [facility] [address] [place] [phone] Referral ID Status Reason Start Date Expiration Date Visits Requested Visits Authorized [id number] Authorized Consult, Test & Treat PCP Updated and/or Approved 01/07/2024 01/06/2025 6 6 Encounter Details Date Type Department Care Team (Latest Contact Info) Description 02/08/2024 9:40 AM EDT TH Visit (TeleHealth) [place] [phone] Shelby Rogers APRN [facility] [place] [address] Bloating; Chronic abdominal pain; Heartburn; Substernal chest pain; Chronic nausea; Unintentional weight loss; Intractable migraine with aura without status migrainosus Social History Tobacco Use Types Packs/Day Years Used Date Smoking Tobacco: Never Assessed Sex and Gender Information Value Date Recorded Sex Assigned at Not on file Gender Identity Not on file Sexual Orientation Not on file documented as of this encounter Patient Instructions * Patient Instructions* Shelby Rogers APRN - 02/08/2024 9:40 AM EDT Images from the original note were not included. Meron Artis It was nice to meet you today. The following orders were placed during our visit today: Orders Placed This Encounter Procedures ENDOSCOPY CASE REQUEST: EGD, UPPER GI ENDOSCOPY (WRVU 2.09) [facility] [place] IgA IgG Tissue Transglutaminase, IgA Calprotectin, Stool Breath Hydrogen Test For procedures that have been ordered please call :Endoscopy Scheduling at [phone] For blood work or stool studies ordered, please go to or any [facility] affiliated lab. As the results come back from your various tests, we will only contact you for results which a change in your treatment plan. Normal results that are visible by [facility] will not receive additional communication. Otherwise, you will receive these results from our team either at a follow-up visit, phone call, letter, or through eDH, which will be determined by your provider. You will likely see the results through your [facility] portal several days before you get additional communication. This is normal. Please note: given the demand for gastrointestinal testing, there have been delays in the scheduling and completion of various investigative studies. We are working to improve this, and in the meantime, we appreciate your patience and cooperation. Feedback on the [facility] experience: Please help us improve our clinic by completing this brief 9 question survey: [email or web address] Sincerely, Shelby Rogers APRN Department of Gastroenterology and Hepatology [facility] documented in this encounter Progress Notes * Shelby Rogers APRN - 02/08/2024 9:40 AM EDT Gastroenterology [facility] (telemedicine) Chief Complaint: Meron Artis is a 28 y.o. patient referred for consultation by Dr. Waed for bloating History of Present Illness: 28 y.o. female with bloating, abdominal pain that has been ongoing for several years. Of note: possible previous diagnosis of fibromyalgia. Frequent joint pain, brain fog.New job since November (stressful, start of unintentional weight loss) +epigastric pain or right under ribs +excessive gas, bloating/distention: after meals/comes and goes Pressure makes it worse +heartburn/substernal burning, some regurgitation +frequent nausea +globus sensation +unintentional weight loss (10-15 lbs, in the past 2 months, Since November) +increased frequency of urination 2-4 BM/week, every 2-3 days Large volume Unsure if BM helps with gas/bloating Flatus with foul odor Denies vomiting, dysphagia, Food triggers not consistent Garlic not a trigger Baseline sensitive stomach Current Medication/Supplement for this symptom GasX: helpful Famotidine 40 mg: rx but doesn't take, when trying previously, doesn't seem helpful Moxy: helps settle gas some 02/08/2024 Q-RAPID ACCESS What gastrointestinal symptom is your biggest concern to discuss during your visit? bloating abdominal pain How long have you had this symptom? Years What are some over the counter medications you have tried for your symptom? (Write none if you are not taking any over the counter medications) Gas x, beano, rolaids What are some supplements you have tried for this symptom? (Write none of you have not tried any supplements) Multi vitamins, peppermint teas Have you been prescribed any medications by another provider outside of the [facility] for this symptom? Yes What was the name of the medication? Famotidine 40mg How long did you take it? Not much Have you been to the emergency room or urgent care for your symptom(s)? No Have you had surgery outside of the [facility] for your symptom(s)? No What testing have you completed for this symptom? none Does anyone else in your immediate family also struggle with this symptom? No Multiple values from one day are sorted in reverse-chronological order Relevant prior GI evaluation Laboratory studies: none Imaging: none Endoscopy: none Medications: Outpatient Medications Prior to Visit Medication Sig Dispense Refill cyclobenzaprine (Flexeril) 5 mg tablet Take 1 tablet as needed by oral route at bedtime. lisdexamfetamine (Vyvanse) 50 mg capsule Take 1 capsule every day by oral route. meloxicam (Mobic) 7.5 mg tablet Take 1 by mouth BID prn famotidine (Pepcid) 40 mg tablet TAKE ONE TABLET BY MOUTH EVERY DAY FOR REFLUX hydrOXYzine (Atarax) 25 mg tablet Take 1-2 tablets by mouth nightly as needed. sertraline (ZOLOFT) 50 mg tablet Take 50 mg by mouth daily. No facility-administered medications prior to visit. Allergies: is allergic to latex. Relevant Past Medical History: Patient Active Problem List Diagnosis Code Ganglion cyst of flexor tendon sheath M67.40 Abdominal bloating R14.0 Acute stress disorder F43.0 Anxiety disorder F41.9 Insomnia related to another mental disorder F51.05 Attention deficit hyperactivity disorder (ADHD) F90.9 Autism spectrum disorder F84.0 Abdominal pain R10.9 Gastroesophageal reflux disease K21.9 Migraine with aura G43.109 Pain in joint M25.50 Syncope R55 Tension-type headache G44.209 Relevant Past Surgical History: No past surgical history on file. Family History: non-contributory Social History: Physical exam: No physical examination performed during this telemedicine visit Assessment/Plan: Ms. Artis is a 28 y.o. patient with longstanding bloating, abdominal pain, heartburn/reflux/globussensation, unintentional weight loss. -EGD to evaluate GERD, hiatal hernia, ulcers/erosion, r/o celiac disease -HBT to r/o SIBO -r/o celiac and elevated calprotectin: [facility] -PPI therapy Recommend starting miralax daily 60 min JAQUELINE motility when testing complete She should continue to seek help from their primary care team while waiting for any relevant testing and results. She has not been assigned a gastroenterology provider as of this triage visit. Shelby Rogers [place] [facility] [place] [phone] documented in this encounter Plan of Treatment Scheduled Orders Name Type Priority Associated Diagnoses Orde r Schedule Breath Hydrogen Test GI Routine Bloating Chronic abdominal pain Heartburn Substernal chest pain Chronic nausea Unintentional weight loss Intractable migraine with aura without status migrainosus Expected: 02/08/2024, Expires: 08/09/2024 ENDOSCOPY CASE REQUEST: EGD, UPPER GI ENDOSCOPY (WRVU 2.09) Procedures Routine Bloating Chronic abdominal pain Heartburn Substernal chest pain Chronic nausea Unintentional weight loss Intractable migraine with aura without status migrainosus Ordered: 02/08/2024 [facility] [place] Lab Routine Bloating Chronic abdominal pain Heartburn Substernal chest pain Chronic nausea Unintentional weight loss Intractable migraine with aura without status migrainosus Expected: 02/08/2024, Expires: 08/09/2024 IgA Lab Routine Bloating Chronic abdominal pain Heartburn Substernal chest pain Chronic nausea Unintentional weight loss Intractable migraine with aura without status migrainosus Expected: 02/08/2024, Expires: 03/10/2024 IgG Lab Routine Bloating Chronic abdominal pain Heartburn Substernal chest pain Chronic nausea Unintentional weight loss Intractable migraine with aura without status migrainosus Expected: 02/08/2024, Expires: 03/10/2024 Tissue Transglutaminase, IgA Lab Routine Bloating Chronic abdominal pain Heartburn Substernal chest pain Chronic nausea Unintentional weight loss Intractable migraine with aura without status migrainosus Expected: 02/08/2024, Expires: 03/10/2024 Calprotectin, Stool Lab Routine Bloating Chronic abdominal pain Heartburn Substernal chest pain Chronic nausea Unintentional weight loss Intractable migraine with aura without status migrainosus Ordered: 02/08/2024 Scheduled Procedures Name Priority Associated Diagnoses Date/Ti me EGD, UPPER GI ENDOSCOPY (WRV U 2.09) Bloating Chronic abdominal pain Heartburn Substernal chest pain Chronic nausea Unintentional weight loss Intractable migraine with aura without status migrainosus documented as of this encounter Visit Diagnoses Diagnosis Bloating Flatulence, eructation, and gas pain Chronic abdominal pain Abdominal pain, unspecified site Heartburn Substernal chest pain Precordial pain Chronic nausea Nausea alone Unintentional weight loss Loss of weight Intractable migraine with aura without status migrainosus Migraine with aura, with intractable migraine, so stated, without mention of status migrainosus documented in this encounter Care Teams Principal Embedded Software Engineer Relationship Specialty Start Date End Date Soni Wade MD [address] [place] [address] PCP - General Family Medicine 01/26/24 documented as of this encounter
--- OUTSIDE RECORDS SUMMARY | 2024-02-15 21:44 | XMS_ITS | Clinical Summary ---
Author Organization [facility] Address One [facility] [place] [address] Care Team Providers Care Blender Helper Name Role Phone Soni Wade MD Primary Care Provider [phone] Allergies Active Allergy Reactions Criticality Noted Date Comments Latex Other (See Comments) 12/12/2013 Medications Medication Sig Dispensed Refills Start Date End Date Status sertraline (ZOLOFT) 50 mg tablet Take 50 mg by mouth daily. Active cyclobenzaprine (Flexeril) 5 mg tablet Take 1 tablet as needed by oral route at bedtime. 01/07/2024 Active famotidine (Pepcid) 40 mg tablet TAKE ONE TABLET BY MOUTH EVERY DAY FOR REFLUX Active hydrOXYzine (Atarax) 25 mg tablet Take 1-2 tablets by mouth nightly as needed. Active lisdexamfetamine (Vyvanse) 50 mg capsule Take 1 capsule every day by oral route. 01/07/2024 Active meloxicam (Mobic) 7.5 mg tablet Take 1 by mouth BID prn 11/16/2014 Active pantoprazole EC (Protonix) [address] tabletIndications:Blo ating,Chronic abdominal pain,Heartburn,Subste rnal chest pain,Chronic nausea,Unintentional weight loss,Intractable migraine with aura without status migrainosus Take 1 tablet by mouth daily. 30 tablet 11 02/08/2024 Active Active Problems Patient Care Coordination No te Formatting of this note migh t be different from the original. Primary H/A Provider: NONE 08/02/18, 09/20/18 no show to new patient appointment DO NOT schedule until behavior agreement signed Problem Noted Date Diagnosed Date Abdominal bloating 01/07/2024 Gastroesophageal reflux disease 12/10/2023 Syncope 10/05/2023 Acute stress disorder 12/11/2022 Overview (02/08/2024): Problem Code: F43.0; Problem Code Type: ICD-10; Abdominal pain 10/23/2021 Overview (02/08/2024): Problem Code: R10.9; Problem Code Type: ICD-10; Insomnia related to another mental disorder 12/19 Overview (02/08/2024): Problem Code: F51.05; Problem Code Type: ICD-10; Migraine with aura 01/08/2016 Overview (02/08/2024): 07/05/2018 - Comments only - Casper Cote - - As above. Problem Code: G43.109; Problem Code Type: ICD-10; Pain in joint 11/16/2014 Overview (02/08/2024): Problem Code: M25.50; Problem Code Type: ICD-10; Tension-type headache 11/16/2014 Overview (02/08/2024): Problem Code: G44.209; Problem Code Type: ICD-10; Autism spectrum disorder 03/17/2011 Overview (02/08/2024): Problem Code: F84.9; Problem Code Type: ICD-10; Ganglion cyst of flexor tendon sheath 09/23/2010 Anxiety disorder 09/20/2010 Overview (02/08/2024): Problem Code: F41.9; Problem Code Type: ICD-10; Attention deficit hyperactivity disorder (ADHD) 10/22/2004 Encounters Date Type Department Care Team Description 02/10/2024 Telephone [place] [id number] Percy Mariee 02/08/2024 9:40 AM EDT TH Visit (TeleHealth) [place] [address] Shelby Rogers APRN Bloating; Chronic abdominal pain; Heartburn; Substernal chest pain; Chronic nausea; Unintentional weight loss; Intractable migraine with aura without status migrainosus 01/26/2024 Transcribe Orders eDH Incoming Referrals [phone] Soni Wade MD Abdominal distension (gaseous) from Last 3 Months Social History Tobacco [...] Mass Index - - Plan of Treatment Scheduled Procedures Name Priority Associated Diagnoses Date/Ti me EGD, UPPER GI ENDOSCOPY (WRV U 2.09) Bloating Chronic abdominal pain Heartburn Substernal chest pain Chronic nausea Unintentional weight loss Intractable migraine with aura without status migrainosus Health Maintenance Due Date Last Done Comments HIV screen 07/21/2011 Hepatitis C Screening 07/21/2011 Hepatitis B vaccine (0-59 yrs) (1) 2012 Tetanus/Diphtheria/Pertussis Vaccines (1 - Tdap) 07/20 HPV test 07/21/2023 PAP Smear 07/21/2023 Covid-19 Vaccine (2 - season) 12/20/202302/2022 Influenza (Flu) vaccine (1 o f 1 - Influenza standard series) 12/20/2023 Care Teams Blender Helper Relationship Specialty Start Date End Date Soni Wade MD [address] [place], [place] [id number] PCP - General Family Medicine 01/26/24
--- OUTSIDE RECORDS SUMMARY | 2024-02-15 21:44 | XMS_ITS | Encounter Summary ---
Author Organization [facility] [place] [address] Care Team Providers Care Insecticide Expert Name Role Phone Alli Nguyen MD Primary Care Provider + [phone] Reason for Visit * Reason Comments Left Finger Pain Left index finger ma ss Encounter Details Date Type Department Care Team (Late st Contact Info) Description 08/19/2010 1:00 PM EDT Office [place] [address] Johnathan Parkinson MD [facility] [place] [address] Claudia Mullins MD [facility] [place] [address] Ganglion cyst of flexor tendon sheath (Primary [...] encounter Miscellaneous Notes * Miscellaneous - Brad Staff Nurse [facility] Resource Team - 08/23/2010 8:56 AM EDT documented in this encounter Plan of Treatment Scheduled Procedures Name Priority [...] limb documented in this encounter Care Teams Insecticide Expert Relationship Specialty Start Date End Date Alli Nguyen MD [address] [place] [address] PCP - General 07/31/10 01/25/24 documented as of this encounter
--- OUTSIDE RECORDS SUMMARY | 2024-02-15 21:44 | XMS_ITS | Encounter Summary ---
Author Organization [facility] [place] [address] Care Team Providers Care Director Of Student Affairs Name Role Phone Alli Nguyen MD Primary Care Provider + [phone] Reason for Visit * Reason Onset Date Comments No Show 09/21/2018 behavior contrac t Encounter Details Date Type Department Care Team (Late st Contact Info) Description 09/21/2018 Telephone Neurology at [facility] [place] [address] [place] [address] No Show (behavior contract) Social History Tobacco [...] on filedocumented in this encounter Care Teams Director Of Student Affairs Relationship Specialty Start Date End Date Alli Nguyen MD [address] [place] [address] PCP - General 07/31/10 01/25/24 documented as of this encounter
--- OUTSIDE RECORDS SUMMARY | 2024-02-15 21:44 | XMS_ITS | Encounter Summary ---
[place] [address] Care Team Providers Care Transfer Car Operator Name Role Phone Soni Wade MD Primary Care Provider [phone] Encounter Details Date Type Department Care Team (Late st Contact Info) Description 02/10/2024 Telephone [place] [address] Percy Mariee Social History Tobacco Use Types Packs/Day Years Used Date Smoking Tobacco: Never Assessed Sex and Gender Information Value Date Recorded Sex Assigned at Not on file Gender Identity Not on file Sexual Orientation Not on file documented as of this encounter Miscellaneous Notes * Telephone Encounter - Percy Mariee - 02/10/2024 8:48 AM EDT RAC letter sent with scheduling information for ordered testing. Pt needs: HBT EGD 60 min JAQUELINE CGC 3 weeks after testing is complete (recall entered) * Telephone Encounter - Percy Mariee - 02/10/2024 8:47 AM EDT ----- Message from Shelby Rogers sent at 02/08/2024 7:03 PM EDT ----- Please schedule EGD, HBT and then 60 min JAQUELINE CGC 3 weeks after testing is complete Thanks! documented in this encounter Plan of Treatment Scheduled Procedures Name Priority Associated Diagnoses Date/Ti me EGD, UPPER GI ENDOSCOPY (WRV U 2.09) Bloating Chronic abdominal pain Heartburn Substernal chest pain Chronic nausea Unintentional weight loss Intractable migraine with aura without status migrainosus documented as of this encounter Visit Diagnoses Not on filedocumented in this encounter Care Teams Transfer Car Operator Relationship Specialty Start Date End Date Soni Wade MD [address] [place] [address] PCP - General Family Medicine 01/26/24 documented as of this encounter
--- OUTSIDE RECORDS SUMMARY | 2024-02-15 21:44 | XMS_ITS | Encounter Summary ---
Author Organization [facility] Address [address] [place] [address] Care Team Providers Care Quality Assurance Tech Name Role Phone Alli Nguyen MD Primary Care Provider [phone] Encounter Details Date Type Department Care Team (Late st Contact Info) Description 03/20/2017 Results Only [facility] [phone] Domonique Newman MD [address] [place], [place] [id number] Social History Tobacco Use Types Packs/Day Years [...] ? ASHKAN MERON ? Accession #: ? [id number] : ? 1995 (Age: 21) ??F ?Collect [...] Report Date: ??04/02/2017 10:53 End of Report [facility] 03/20/2017 03/24/2017 Domonique Newman MD PATHOLOGY ORDERABLES [facility] [address] [place] [address] documented in this encounter Visit Diagnoses Not on filedocumented in this encounter Care Teams Quality Assurance Tech Relationship Specialty Start Date End Date Alli Nguyen MD [address] [place] [address] PCP - General 03/01/15 documented as of this encounter
--- OUTSIDE RECORDS SUMMARY | 2024-02-15 21:44 | XMS_ITS | Encounter Summary ---
[place] [address] Care Team Providers Care Tearoom Host Name Role Phone Alli Nguyen MD Primary Care Provider [phone] Encounter Details Date Type Department Care Team (Latest Contact Info) Description 09/23/2010 2:10 PM EDT - 09/23/2010 11:59 PM EDT Hospital [place] [address] Ganglion cyst of flexor tendon sheath Social [...] of this encounter Plan of Treatment Scheduled Procedures Name Priority Associated Diagnoses Date/Ti me EGD, UPPER GI ENDOSCOPY (WRV U 2.09) Bloating Chronic abdominal pain Heartburn Substernal chest pain Chronic nausea Unintentional weight loss Intractable migraine with aura without status migrainosus documented as of this encounter Procedures Procedure [...] mLs documented in this encounter Care Teams Tearoom Host Relationship Specialty Start Date End Date Alli Nguyen MD [address] [place] [address] PCP - General 07/31/10 01/25/24 documented as of this encounter
--- OUTSIDE RECORDS SUMMARY | 2024-02-15 21:44 | XMS_ITS | Encounter Summary ---
[place] [address] Care Team Providers Care Agile Coach Name Role Phone Soni Wade MD Primary Care Provider Reason for Referral * Consultation (Routine) - Authorized Specialty Diagnoses / Procedures Referred By Andreia t Referred To Contact Gastroenterology Diagnoses Abdominal distension (gaseous) ABDOMINAL BLOATING Soni Wade MD [address] [place] [address] [facility] [place] [address] Referral ID Status Reason Start Date Expiration Date Visits Requested Visits Authorized [id number] Authorized Consult, Test & Treat PCP Updated and/or Approved 01/07/2024 01/06/2025 6 6 Encounter Details Date Type Department Care Team (Latest Contact Info) Description 01/26/2024 Transcribe Orders eDH Incoming Referrals [phone] Soni Wade MD [address] [place] [address] Abdominal distension (gaseous) Social History Tobacco Use Types Packs/Day Years [...] Intractable migraine with aura without status migrainosus Scheduled Referrals Name Type Priority Associated Diagnoses Order Schedule Referral to Gastroenterology Outpatient Referral Routine Abdominal Distension (Gaseous) Ordered: 01/26/2024 documented as of this encounter Visit Diagnoses Diagnosis Abdominal distension (gaseous) Flatulence, eructation, and gas pain documented in this encounter Care Teams Agile Coach Relationship Specialty Start Date End Date Soni Wade MD [address] [place] [address] PCP - General Family Medicine 01/26/24 documented as of this encounter
--- OUTSIDE RECORDS SUMMARY | 2024-02-15 21:44 | XMS_ITS | Encounter Summary ---
Author Organization [facility] [place] [address] Care Team Providers Care Spinneret Person Name Role Phone Alli Nguyen MD Primary Care Provider + [phone] Reason for Visit * Reason Comments Left Finger Pain Encounter Details Date Type Department Care Team (Late st Contact Info) Description 09/23/2010 3:30 PM EDT [place] [address] CLINIC, Shimon Evans MD [facility] [place] [address] Scott Galan PA [facility] [place] [address] Ganglion cyst of flexor tendon sheath (Primary [...] this encounter Miscellaneous Notes * Miscellaneous - Lamin Salinas - 09/30/2010 12:05 PM EDT documented in this encounter Plan of Treatment Scheduled Procedures Name Priority Associated Diagnoses Date/Ti nv EGD, UPPER GI ENDOSCOPY (WRV U 2.09) Bloating Chronic abdominal pain Heartburn Substernal chest pain Chronic nausea Unintentional weight loss Intractable migraine with aura without status migrainosus documented as of this encounter Visit Diagnoses Diagnosis Ganglion cyst of flexor tendon sheath- Primary Ganglion of tendon sheath documented in this encounter Care Teams Spinneret Person Relationship Specialty Start Date End Date Alli Nguyen MD [address] [place] [address] PCP - General 07/31/10 01/25/24 documented as of this encounter
--- OUTSIDE RECORDS SUMMARY | 2024-02-15 21:44 | XMS_ITS | Encounter Summary ---
[place] [address] Care Team Providers Care Outlet Manager Name Role Phone Alli Nguyen MD Primary Care Provider Encounter Details Date Type Department Care Team (Late st Contact Info) Description 10/25/2010 Abstract [place] [id number] Marina Winston RN Social History Tobacco Use [...] on filedocumented in this encounter Care Teams Outlet Manager Relationship Specialty Start Date End Date Alli Nguyen MD [address] [place] [address] PCP - General 07/31/10 01/25/24 documented as of this encounter
--- OUTSIDE RECORDS SUMMARY | 2024-02-15 21:44 | XMS_ITS | Encounter Summary ---
Author Organization [facility] [place] [address] Care Team Providers Care Supervisor Roving Name Role Phone Alli Nguyen MD Primary Care Provider + [phone] Reason for Visit * Reason Onset Date Comments Finger Pain 08/02/2010 lump on finger Encounter Details Date Type Department Care Team (Late st Contact Info) Description 08/02/2010 Tele[place] [address] Shimon Parkinson MD [facility] [place] [address] Finger Pain (lump on finger) Social History [...] limb documented in this encounter Care Teams Supervisor Roving Relationship Specialty Start Date End Date Alli Nguyen MD [address] [place] [address] PCP - General 07/31/10 01/25/24 documented as of this encounter
--- OUTSIDE RECORDS SUMMARY | 2024-02-15 21:44 | XMS_ITS | Encounter Summary ---
Author Organization [facility] [place] [address] Care Team Providers Care Radiator Core Tester Name Role Phone Alli Nguyen MD Primary Care Provider + [phone] Reason for Visit * Reason Comments ADHD neuropsychological e valuation Encounter Details Date Type Department Care Team (Late st Contact Info) Description 02/20/2011 9:00 AM EDT Office Visit Psychiatry [place] [address] Vincent Casarez, PhD [facility] PSYCHIATRY - [place] [address] ADHD (attention deficit hyperactivity disorder) (Primary Dx) Social History Tobacco Use Types Packs/Day Years Used Date Smoking Tobacco: Never Assessed Sex and Gender Information Value Date Recorded Sex Assigned at Not on file Gender Identity Not on file Sexual Orientation Not on file documented as of this encounter Progress Notes * Vincent Casarez, PhD - 04/25/2011 3:33 PM EST Name: Meron Artis ID#: [id number] Date of : 1995 Age: 15 -7 School: [employer] Current Grade: 12 Date of Evaluation: [...] also receiving vocational rehabilitation services through the [facility] at this time. Medical history included weight [...] currently sleeps about 5 hours per night. Meorn is currently taking citalopram. Familial medical and psychiatric history is positive for dyslexia, ADHD, autism, depressi on, and PTSD. Meron is currently in the 12th grade at [employer]. She is supported with an IEP [...] Developmental/Behavioral Medicine Evaluation by Joshua Bradley M.D. ([facility]), which detailed her [...] Further, adaptive behavior was measured using the Phoenix-II Adaptive Behavior Scales completed with the parent/caregiver. Results were reported as overall Adaptive Behavior Composite =59 (Communication=64; Daily Living Skills=57; Socialization Skills=60; Motor Wsivpv=135). TESTS AND PROCEDURES ADMINISTERED General: Clinical Interview [...] Test (CPT) Oral Language: Verbal Fluency (D-KEFS) [place] Naming Test (BNT) Memory: [place] Verbal Learning [...] without difficulty and utilized an appropriate pencil vp cardiovascular. Attention and concentration was generally adequate throughout [...] results of the current evaluation suggest that Aurys estimated level of intellectual functioning falls within the borderline range. However, there were notable inconsistencies across indexes. Within this context, Aurys verbal intellectual skills and perceptual reasoning abilities [...] the Visual Puzzles subtest. Additional details regarding Alejandra performance on subtests of the WAIS-IV are [...] (GEC) as well as the CARMEN and IA were significantly elevated. Specific scale elevations were [...] a later point in time. Nonverbal memory Meron was asked to reproduce a complex figure [...] results of the current evaluation suggest that Meron???s estimated level of intellectual functioning falls within [...] high school. A program such as [employer] may be able to provide her with [...] Psychiatric Clinic ([facility]) in [facility] Development at [facility] [place]. Poor sleep quality may also contribute to [...] Bruner Psy.D. Post-Doctoral Fellow Tina Casarez, Ph.D., [employer] [facility] Business Controller [place] Licensed Psychologist, #[id number] [place] Psychologist Doctorate, #[id number] This report was prepared by Tammi Bruner Psy.D., Postdoctoral Fellow in Pediatric Neuropsychology under the supervision of Mateo Casarez, Ph.D. cc: Rosalind Artis (Mother) [address] [facility] [address] [place] [address] Dr. Maynor Nguyen [id number] [place] [address] Casarez???s file DATA TABLES DESCRIPTOR [...] 15 75 5 WJ-III READING FLUENCY 37 (3 ) 73 4 raw score %ile BNT 46 [...] hyperactivity documented in this encounter Care Teams Radiator Core Tester Relationship Specialty Start Date End Date Alli Nguyen MD [address] [place] [address] PCP - General 07/31/10 01/25/24 documented as of this encounter
[2024-02-15 23:15] LABS: Rheumatoid Factor <8.6 IU/mL (<12.0)
[2024-02-16 10:22] LABS: Cyclic Citrullinated Peptide <2.5 U/mL (<5.0)
[2024-02-16 10:50] LABS: IgG 1430 mg/dL (610-1616)
[2024-02-16 13:00] LABS: ANA Interpretation Negative (Negative)
[2024-02-17 10:00] LABS: IgA 171 mg/dL (85-499); Interpretation (See Note); Tissue Transglutaminase IgA <4.0 CU (<20.0)
[2024-02-17 14:35] LABS: HLA-B27 Result Negative
== END 2024-02-15 21:38 | disposition home or self-care (01) ==
LOC: NCHCN 21:37
PROVIDERS: PCP Internal Medicine; Visit Provider Family Medicine
DX: R14.0 Abdominal distension (gaseous) (principal); M79.641 Pain in right hand; M53.3 Sacrococcygeal disorders, not elsewhere classified
CPT/HCPCS: 82784; 83516; 85652; 86200; 86812; 84443; 86038; 86140; 86431

== ENCOUNTER 2024-02-24 10:35 | Outpatient (REF) | payer MEDICAID, SELFPAY ==
--- OUTSIDE RECORDS SUMMARY | 2024-02-24 10:38 | XMS_ITS | Encounter Summary ---
Author Organization [facility] Address [address] [place] [address] Care Team Providers Care Residential Sales Manager Name Role Phone Alli Nguyen MD Primary Care Provider [phone] Encounter Details Date Type Department Care Team (Late st Contact Info) Description 10/11/2021 Lab Requisition [facility] Pathology & Laboratory Medicine - [address] [address] Bhavya Mcnulty MD [facility] [place] [address] Encounter for other general examination Social History [...] System with Manual Evaluation 10/15/2021 16:[address] [facility] Specimen Adequacy Satisfactory for Evaluation - transformation zone component present 10/15/2021 16:[address] [facility] General Categorization Epithelial Cell Abnormality 10/15/2021 16:[address] [facility] Descriptive Diagnosis Squamous Cell Abnormality - High grade squamous intraepithelial lesion (HSIL). 10/15/2021 16:[address] [facility] Educational Comments [facility] recommends following ASCCP's 2012 Updated Consensus Guidelines for the Management of Abnormal Cervical Cancer Screening Tests and Cancer Precursors (JLGTD, 2013; 17(5):S1-S27). Consensus guidelines are available online at www.asccp.org. 10/15/2021 16:[address] [facility] Attestation By the signature below, the attending physician certifies that they have personally conducted a gross and/or microscopic examination of the described specimens and rendered or confirmed the above diagnosis. 10/15/2021 16:41 [facility] at 1641 Clinical History See below 10/16/19 16:41 [facility] Performing Lab [facility] 10/15/2021 16:41 [facility] Scanned Images 10/15/2021 16:41 [facility] Papanicolaou smear specimen (specimen) CERVIX UTERI STRUCTURE / Unknown 10/10/2021 10:30 EDT 10/11/2021 13:57 EDT Bhavya Mcnulty MD PATHOLOGY ORDERABLES [facility] [address] [place] [address] documented in this encounter Visit Diagnoses Diagnosis Encounter for other general examination documented in this encounter Care Teams Residential Sales Manager Relationship Specialty Start Date End Date Alli Nguyen MD [address] [place], [place] [id number] PCP - General 03/01/15 documented as of this encounter
--- OUTSIDE RECORDS SUMMARY | 2024-02-24 10:38 | XMS_ITS | Encounter Summary ---
Author Organization [facility] Address [address] [place] [address] Care Team Providers Care Substance Abuse Counselor Name Role Phone Alli Nguyen MD Primary Care Provider [phone] Encounter Details Date Type Department Care Team (Latest Contact Info) Description 08/27/2022 Lab Requisition [facility] Pathology & Laboratory Medicine - [address] [address] Bhavya Mcnulty MD [address] [place] [address] [address] [place] [address] Noninflammatory disorder of cervix uteri, unspecified Social [...] explore management options, if applicable. 09/02/2022 10:50 [facility] Final Diagnosis A. ENDOCERVIX, CURETTAGE: - Predominantly blood with rare fragment of inflammatory debris and minute fragment of benign squamous epithelium. B. ENDOMETRIUM, CURETTAGE: - Predominantly blood with rare fragment of squamous cell epithelium. - No endometrial tissue present for evaluation. 09/02/2022 10:50 [facility] Diagnosis Comment Deeper sections have been examined on parts A and B. 09/02/2022 10:50 [facility] Attestation There was significant resident/fellow involvement in the diagnostic evaluation of this case. By the signature below, the attending physician certifies that they have personally conducted a gross and/or microscopic examination of the described specimens and rendered or confirmed the above diagnosis. 09/02/2022 10:50 [facility] at 1050 Clinical History Cervix abnormality, abnl cervical bleeding 09/02/2022 10:50 [facility] Gross Description A. [...] B1. Debra Alicea 08/28/2022 12:14 09/02/2022 10:50 [facility] Resident/Arian w: Jenn Encarnacion MD 09/02/2022 10:50 [facility] Performing Lab [facility] 09/02/2022 10:50 [facility] Scanned Images 09/02/2022 10:50 [facility] Tissue ENTIRE ENDOMETRIUM / Unknown 08/27/2022 10:42 EDT 08/27/2022 16:48 EDT Tissue specimen (specimen) ENDOMETRIAL STRUCTURE / Unknown 08/27/2022 10:42 EDT 08/27/2022 16:48 EDT Bhavya Mcnulty MD PATHOLOGY ORDERABLES [facility] [address] [place] [address] documented in this encounter Visit Diagnoses Diagnosis Noninflammatory disorder of cervix uteri, unspecified documented in this encounter Care Teams Substance Abuse Counselor Relationship Specialty Start Date End Date Alli Nguyen MD [address] [place] [address] PCP - General 03/01/15 documented as of this encounter
--- OUTSIDE RECORDS SUMMARY | 2024-02-24 10:38 | XMS_ITS | Encounter Summary ---
Author Organization [facility] Address [address] [place] [address] Care Team Providers Care Painter Decorator Name Role Phone Alli Nguyen MD Primary Care Provider [phone] Encounter Details Date Type Department Care Team (Late st Contact Info) Description 10/10/2021 Lab Requisition [facility] Pathology & Laboratory Medicine - [address] [id number] Outr Resulting Lab, Provider Social History Tobacco [...] gonorrhoeae Result Negative Negative 10/11/2021 14:44 EDT [facility] Chlamydia trachomatis Result Negative Negative 10/11/2021 14:44 EDT [facility] Swab ENTIRE ENDOCERVIX / Unknown 10/10/2021 10:30 EDT 10/10/2021 22:47 EDT Provider Outr Resulting Lab MICROBIOLOGY - GENERAL ORDERABLES [facility] [address] [place] [address] documented in this encounter Visit Diagnoses Not on filedocumented in this encounter Care Teams Painter Decorator Relationship Specialty Start Date End Date Alli Nguyen MD [address] [place], [place] [id number] PCP - General 03/01/15 documented as of this encounter
--- OUTSIDE RECORDS SUMMARY | 2024-02-24 10:38 | XMS_ITS | Encounter Summary ---
Author Organization [facility] Address [address] [place] [address] Care Team Providers Care Casket Upholsterer Name Role Phone Alli Nguyen MD Primary Care Provider [phone] Encounter Details Date Type Department Care Team (Late st Contact Info) Description 02/15/2024 Lab Requisition [facility] Pathology & Laboratory Medicine - [address] [id number] Outr Resulting Lab, Provider Social History Tobacco [...] Associated Diagnosis Comments CELIAC DISEASE PANEL Routine 02/15/2024 11:20 EDT CCP ANTIBODIES Routine 02/15/2024 11:20 EDT RHEUMATOID FACTOR Routine 02/15/2024 11: 20 EDT ANTI NUCLEAR AB (JO), IFA Routine 02/15/2024 11:20 EDT documented in this encounter Results * RHEUMATOID FACTOR (02/15/2024 11:20 EDT) Rheumatoid Factor <8.6 <12.0 IU/mL 02/15/2024 23:10 EDT [facility] Blood VENOUS BLOOD / Unknown 02/15/2024 11:20 EDT 02/15/2024 22:52 EDT Provider Outr Resulting Lab CHEMISTRY & BLOOD GAS ORDERABLES Performing Organization Address City/[facility]/ZIP Co de Phone Number [facility] [address] [place] [address] * ANTI NUCLEAR AB (JO), IFA (02/15/2024 11:20 EDT) JO Interpretation Negative Negative 2023 12:56 EDT [facility] Comment:No titer performed, JO Screen is negative. Blood VENOUS BLOOD / Unknown 02/15/2024 11:20 EDT 02/15/2024 22:52 EDT Narrative [facility] - 02/16/2024 12:56 EDT Results were obtained with the [employer] NOVA Lite HEp-2 JO Kit by indirect immunofluorescence. Provider Outr Resulting Lab IMMUNOLOGY A ND SEROLOGY ORDERABLES Performing Organization Address [facility] Co de Phone Number [facility] [address] [place] [phone] * CCP ANTIBODIES (02/15/2024 11:20 EDT) CCP Antibodies <2.5 <5.0 U/mL 02/16/2024 10:17 EDT [facility] Blood VENOUS BLOOD / Unknown 02/15/2024 11:20 EDT 02/15/2024 22:52 EDT Provider Outr Resulting Lab IMMUNOLOGY A ND SEROLOGY ORDERABLES Performing Organization Address City/[facility]/ZIP Co de Phone Number [facility] [address] [place] [address] * CELIAC DISEASE PANEL (02/15/2024 11:20 EDT) Tissue Transglutaminase Antibody, IgA <4.0 <20.0 CU 02/17/2024 9:56 EDT [facility] Comment: A negative result may be due to IgA deficiency and does not rule out celiac disease. Negative: <20.0 CU Weak Positive: 20.0-30.0 CU Positive: >30.0 CU Results were obtained with the [employer] QUANTA Flash h-tTG IgA chemiluminescent immunoassay. Values obtained with different manufacturers' assay methods may not be used interchangeably. IgA 171 85 - 499 mg/dL 02/17/2024 9:56 EDT [facility] Celiac Disease Interpretation Negative Serology. Celiac disease unlikely. Approximately 10% of patients with celiac disease are seronegative. Patients who are already adhering to a gluten-free diet may also be seronegative. If celiac disease is highly clinically suspected, referral to gastroenterology for additional evaluation is recommended. 02/17/2024 9:56 EDT [facility] Blood VENOUS BLOOD / Unknown 02/15/2024 11:20 EDT 02/15/2024 22:52 EDT Provider Outr Resulting Lab IMMUNOLOGY A ND SEROLOGY ORDERABLES Performing Organization Address City/State/[facility] Co de Phone Number [facility] [address] [place], [place] [phone] documented in this encounter Visit Diagnoses Not on filedocumented in this encounter Care Teams Casket Upholsterer Relationship Specialty Start Date End Date Alli Nguyen MD [address] [place], [place] [id number] PCP - General 03/01/15 documented as of this encounter
--- OUTSIDE RECORDS SUMMARY | 2024-02-24 10:38 | XMS_ITS | Encounter Summary ---
Author Organization [facility] Address [address] [place] [address] Care Team Providers Care Veterinary Meat Inspector Name Role Phone Alli Nguyen MD Primary Care Provider [phone] Encounter Details Date Type Department Care Team (Late st Contact Info) Description 12/19/2021 Lab Requisition [facility] Pathology & Laboratory Medicine - [address] [address] Bhavya Mcnulty MD [facility] [place] [address] Encounter for other general examination Social History [...] explore management options, if applicable. 12/24/2021 13:56 [facility] Final Diagnosis A. FALLOPIAN TUBE, [...] zone mucosa, negative for dysplasia. 12/24/2021 13:56 [facility] Attestation There was significant resident/fellow involvement in the diagnostic evaluation of this case. By the signature below, the attending physician certifies that they have personally conducted a gross and/or microscopic examination of the described specimens and rendered or confirmed the above diagnosis. 12/24/2021 13:56 [facility] at 1356 Clinical History Desired sterilization; LEEP for DON II 12/24/2021 13:56 [facility] Gross Description [...] are identified. The entire fimbria and a warehouse representative cross-section are submitted in A1 and [...] are identified. The entire fimbria and a warehouse representative cross-section are submitted in B1 and [...] YIN GOULD(ASCP) 12/19/2021 15:56 12/24/2021 13:56 EDT [facility] Resident/Arian w: Mat Read DO 12/24/2021 13:56 EDT [facility] Performing Lab [facility] 13:56 EDT [facility] Scanned Images 12/24/2021 13:56 EDT [facility] Tissue ENTIRE WALL OF CERVIX / Unknown 12/18/2021 14:20 EDT 12/19/2021 8:30 EDT Tissue specimen (specimen) FALLOPIAN TUBE STRUCTURE / Unknown 12/18/2021 14:20 EDT 12/19/2021 8:30 EDT Tissue specimen (specimen) CERVIX UTERI STRUCTURE / Unknown 12/18/2021 14:20 EDT 12/19/2021 8:30 EDT Tissue specimen (specimen) CERVIX UTERI STRUCTURE / Unknown 12/18/2021 14:20 EDT 12/19/2021 8:30 EDT Bhavya Mcnulty MD PATHOLOGY ORDERABLES [facility] [address] [place] [address] documented in this encounter Visit Diagnoses Diagnosis Encounter for other general examination documented in this encounter Care Teams Veterinary Meat Inspector Relationship Specialty Start Date End Date Alli Nguyen MD [address] [place], [place] [id number] PCP - General 03/01/15 documented as of this encounter
--- OUTSIDE RECORDS SUMMARY | 2024-02-24 10:38 | XMS_ITS | Encounter Summary ---
Author Organization [facility] Address [address] [place] [address] Care Team Providers Care Hand Clipper Name Role Phone Alli Nguyen MD Primary Care Provider [phone] Encounter Details Date Type Department Care Team (Late st Contact Info) Description 01/03/2021 Lab Requisition [facility] Pathology & Laboratory Medicine - [address] [address] Joni Lugo MD [address] [place], [place] [address] Encounter for other general examination Social History [...] management options, if applicable. 01/06/2021 14:38 EDT [facility] Final Diagnosis A. SKIN OF ABDOMEN, LEFT LOWER QUADRANT, SHAVE BIOPSY: -Intradermal nevus. 01/06/2021 14:38 [facility] Attestation By the signature below, the attending physician certifies that they have 1) personally conducted a gross and/or microscopic examination of the described specimen(s), and/or personally interpreted the results of laboratory testing of the described specimen(s), and 2) personally rendered or confirmed the above diagnosis. 01/06/2021 14:38 [facility] at 1438 Clinical History Nevus 01/06/2021 14:38 [facility] Gross Description A. Received in formalin labelled with proper patient identification (initials W, L) and LLQ ABD is a 0.7 x 0.5 x 0.5 cm polypoid fragment of prasad to dark brown skin. The margin is inked. The specimen is bisected and entirely submitted in A1. YIN MANUEL(ASCP) 01/03/2021 10:18 01/06/2021 14:38 [facility] Performing Lab [facility] 01/06/2021 14:38 [facility] Scanned Images 01/06/2021 14:38 [facility] Tissue TISSUE SPECIMEN FROM SKIN / Unknown 01/02/2021 11:15 EDT 01/03/2021 8:23 EDT Joni Lugo MD PATHOLOGY ORDERABLES [facility] [address] [place] [address] documented in this encounter Visit Diagnoses Diagnosis Encounter for other general examination documented in this encounter Care Teams Hand Clipper Relationship Specialty Start Date End Date Alli Nguyen MD [address] [place] [address] PCP - General 03/01/15 documented as of this encounter
--- OUTSIDE RECORDS SUMMARY | 2024-02-24 10:38 | XMS_ITS | Encounter Summary ---
Author Organization [facility] Address [address] [place] [address] Care Team Providers Care Shirt Folder Name Role Phone Alli Nugyen MD Primary Care Provider [phone] Encounter Details Date Type Department Care Team (Late st Contact Info) Description 11/09/2021 Lab Requisition [facility] Pathology & Laboratory Medicine - [address] [address] Bhavya Mcnulty MD [facility] [place] [address] Encounter for other general examination Social History [...] explore management options, if applicable. 11/12/2021 10:55 [facility] Final Diagnosis A. CERVIX, 6 O'CLOCK, BIOPSY: - High grade squamous intraepithelial lesion (DON 2). B. CERVIX, 11 O'CLOCK, BIOPSY: - High grade squamous intraepithelial lesion (DON 2). C. ENDOCERVIX, CURETTAGE: - Benign endocervical glands. 11/12/2021 10:55 [facility] Diagnosis Comment Immunoperoxidase stains were performed on section B to confirm the morphologic impression of high grade squamous intraepithelial lesion. Deeper levels of C have been examined. ANTIBODY(CLONE)(BL OCK):RESULT P16 (E6H4TM, Nemacolin) (B1): strong block-like nuclear and cytoplasmic staining [...] performance characteristics have been determined by [facility] and/or by the referring laboratory. The [...] high complexity clinical laboratory testing. 11/12/2021 10:55 [facility] Attestation There was significant resident/fellow involvement in the diagnostic evaluation of this case. By the signature below, the attending physician certifies that they have personally conducted a gross and/or microscopic examination of the described specimens and rendered or confirmed the above diagnosis. 11/12/2021 10:55 [facility] at 1055 Clinical History HGSIL 11/12/2021 10:55 [facility] Gross Description A. Received [...] YIN RODRIGES(ASCP) 11/10/2021 15:05 11/12/2021 10:55 EDT [facility] Resident/Arian w: Eileen Canchola MD 11/12/2021 10:55 EDT [facility] Performing Lab [facility] 10:55 EDT [facility] Scanned Images 11/12/2021 10:55 EDT [facility] Tissue ENTIRE ENDOCERVIX / Unknown 11/08/2021 11:45 EDT 11/09/2021 9:07 EDT Tissue specimen (specimen) CERVIX UTERI STRUCTURE / Unknown 11/08/2021 11:45 EDT 11/09/2021 9:07 EDT Tissue specimen (specimen) ENDOCERVICAL STRUCTURE / Unknown 11/08/2021 11:45 EDT 11/09/2021 9:07 EDT Bhavya Mcnulty MD PATHOLOGY ORDERABLES [facility] [address] [place] [address] documented in this encounter Visit Diagnoses Diagnosis Encounter for other general examination documented in this encounter Care Teams Shirt Folder Relationship Specialty Start Date End Date Alli Nguyen MD [address] [place], [place] [phone] PCP - General 03/01/15 documented as of this encounter
--- OUTSIDE RECORDS SUMMARY | 2024-02-24 10:38 | XMS_ITS | Encounter Summary ---
Author Organization [facility] Address [address] [place] [address] Care Team Providers Care Medical Collections Specialist Name Role Phone Alli Nguyen MD Primary Care Provider [phone] Encounter Details Date Type Department Care Team (Late st Contact Info) Description 03/18/2022 Lab Requisition [facility] Pathology & Laboratory Medicine - [address] [phone] Outr Resulting Lab, Provider Social History Tobacco [...] IGA <1.2 <4.0 U/mL 03/19/2022 10:29 EST [facility] Comment: A negative result may be due to IgA deficiency and does not rule out celiac disease. ? Negative: ??<4.0 U/mL ? Weak Positive: ??4.0 - 10.0 U/mL ? Positive: ??>10.0 U/mL Results were obtained with the [employer] QUANTA Lite R h-tTG IgA CHECO assay on the [employer] DSX. IgA 173 85 - 499 mg/dL 03/19/2022 10:29 EST [facility] Celiac Disease Interpretation Negative Serology. Celiac disease unlikely. Approximately 10% of patients with celiac disease are seronegative. Patients who are already adhering to a gluten-free diet may also be seronegative. If celiac disease is highly clinically suspected, referral to gastroenterology for additional evaluation is recommended. 03/19/2022 10:29 EST [facility] Blood VENOUS BLOOD / Unknown 03/18/2022 12:20 EST 03/18/2022 21:16 EST Provider Outr Resulting Lab IMMUNOLOGY A ND SEROLOGY ORDERABLES [facility] [address] [place] [address] documented in this encounter Visit Diagnoses Not on filedocumented in this encounter Care Teams Medical Collections Specialist Relationship Specialty Start Date End Date Alli Nguyen MD [address] [place] [address] PCP - General 03/01/15 documented as of this encounter
--- OUTSIDE RECORDS SUMMARY | 2024-02-24 10:38 | XMS_ITS | Referral Summary ---
Author Organization [facility] Address [address] [place] [address] Care Team Providers Care Executive Kitchen Manager Name Role Phone Alli Nguyen MD Primary Care Provider [phone] Encounters Date Type Department Care Team Description 02/15/2024 Lab Requisition [facility] Pathology & Laboratory [address] [address] Outr Resulting Lab, Provider 02/15/2024 Lab Requisition [facility] Pathology & Laboratory [facility] [address] [place] [address] Outr Resulting Lab, Provider from Last 3 [...] file Plan of Treatment Not on file Procedures Procedure Name Priority Date/Time Associated Diagnosis Comments RHEUMATOID FACTOR Routine 02/15/2024 11: 20 EDT ANTI NUCLEAR AB (JO), IFA Routine 02/15/2024 11:20 EDT CCP ANTIBODIES Routine 02/15/2024 11:20 EDT CELIAC DISEASE PANEL Routine 02/15/2024 11:20 EDT IGG Routine 02/15/2024 11:20 EDT from Last 3 Months Results * CELIAC DISEASE PANEL (02/15/2024 11:20 EDT) Tissue Transglutaminase Antibody, IgA <4.0 <20.0 CU 02/17/2024 9:56 EDT [facility] Comment: A negative result may be due to IgA deficiency and does not rule out celiac disease. Negative: <20.0 CU Weak Positive: 20.0-30.0 CU Positive: >30.0 CU Results were obtained with the [employer] Current[employer] Flash h-tTG IgA chemiluminescent immunoassay. Values obtained with different manufacturers' assay methods may not be used interchangeably. IgA 171 85 - 499 mg/dL 02/17/2024 9:56 EDT [facility] Celiac Disease Interpretation Negative Serology. Celiac disease unlikely. Approximately 10% of patients with celiac disease are seronegative. Patients who are already adhering to a gluten-free diet may also be seronegative. If celiac disease is highly clinically suspected, referral to gastroenterology for additional evaluation is recommended. 02/17/2024 9:56 EDT [facility] Blood VENOUS BLOOD / Unknown 02/15/2024 11:20 EDT 02/15/2024 22:52 EDT Provider Outr Resulting Lab IMMUNOLOGY A ND SEROLOGY ORDERABLES Performing Organization Address City/[facility]/ZIP Co de Phone Number [facility] [address] [place] [phone] * CCP ANTIBODIES (02/15/2024 11:20 EDT) CCP Antibodies <2.5 <5.0 U/mL 02/16/2024 10:17 EDT [facility] Blood VENOUS BLOOD / Unknown 02/15/2024 11:20 EDT 02/15/2024 22:52 EDT Provider Outr Resulting Lab IMMUNOLOGY A ND SEROLOGY ORDERABLES Performing Organization Address [facility] Co de Phone Number [facility] [address] [place] [address] * RHEUMATOID FACTOR (02/15/2024 11:20 EDT) [facility] [address] Rheumatoid Factor <8.6 <12.0 IU/mL 02/15/2024 23:10 EDT [facility] Blood VENOUS BLOOD / Unknown 02/15/2024 11:20 EDT 02/15/2024 22:52 EDT Provider Outr Resulting Lab CHEMISTRY & BLOOD GAS ORDERABLES Performing Organization Address City/[facility]/ZIP Co de Phone Number [facility] [address] [place] [address] * ANTI NUCLEAR AB (JO), IFA (02/15/2024 11:20 EDT) [facility] [address] JO Interpretation Negative Negative 2023 12:56 EDT [facility] Comment:No titer performed, JO Screen is negative. Blood VENOUS BLOOD / Unknown 02/15/2024 11:20 EDT 02/15/2024 22:52 EDT Narrative [facility] - 02/16/2024 12:56 EDT Results were obtained with the [employer], NOVA Lite HEp-2 JO Kit by indirect immunofluorescence. Provider Outr Resulting Lab IMMUNOLOGY A ND SEROLOGY ORDERABLES Performing Organization Address [facility]/ZIP Co de Phone Number [facility] [address] [place] [address] * IGG (02/15/2024 11:20 EDT) [facility] [address] IgG 1,430 610 - 1,616 mg/dL 02/16/2024 10:45 EDT [facility] Blood VENOUS BLOOD / Unknown 02/15/2024 11:20 EDT 02/15/2024 22:53 EDT Provider Outr Resulting Lab CHEMISTRY & BLOOD GAS ORDERABLES Performing Organization Address City/[facility]/ZIP Co de Phone Number [facility] [address] [place] [address] from Last 3 Months Care Teams Executive Kitchen Manager Relationship Specialty Start Date End Date Alli Nguyen MD [address] [place] [address] PCP - General 03/01/15
--- OUTSIDE RECORDS SUMMARY | 2024-02-24 10:38 | XMS_ITS | Encounter Summary ---
Author Organization [facility] Address [address] [place] [address] Care Team Providers Care Specialty Trimmer Name Role Phone Alli Nguyen MD Primary Care Provider [phone] Encounter Details Date Type Department Care Team (Late st Contact Info) Description 08/15/2022 Lab Requisition [facility] Pathology & Laboratory Medicine - [address] [address] Outr Resulting Lab, Provider Social History Tobacco [...] gonorrhoeae Result Negative Negative 08/16/2022 15:10 EDT [facility] Chlamydia trachomatis Result Negative Negative 08/16/2022 15:10 EDT [facility] Swab ENTIRE ENDOCERVIX / Unknown 08/15/2022 12:00 EDT 08/15/2022 22:25 EDT Provider Outr Resulting Lab MICROBIOLOGY - GENERAL ORDERABLES [facility] [address] [place] [address] documented in this encounter Visit Diagnoses Not on filedocumented in this encounter Care Teams Specialty Trimmer Relationship Specialty Start Date End Date Alli Nguyen MD [address] [place], [place] [id number] PCP - General 03/01/15 documented as of this encounter
--- OUTSIDE RECORDS SUMMARY | 2024-02-24 10:38 | XMS_ITS | Encounter Summary ---
Author Organization [facility] Address [address] [place] [address] Care Team Providers Care Hogshead Wrecker Name Role Phone Alli Nguyen MD Primary Care Provider [phone] Encounter Details Date Type Department Care Team (Late st Contact Info) Description 10/17/2021 Lab Requisition [facility] Pathology & Laboratory Medicine - [address] [id number] Outr Resulting Lab, Provider Social History Tobacco [...] 9:20 EDT) Hold Hold 10/17/2021 19:01 EDT [facility] Blood VENOUS BLOOD / Unknown 10/17/2021 9:20 EDT 10/17/2021 17:49 EDT Provider Outr Resulting Lab LAB INFO SER VICE AND SUPPORT & PHONE RESULT Performing Organization Address [facility] de Phone Number [facility] [address] [place] [address] * FSH (10/17/2021 9:20 EDT) FSH 7.1 See Note mIU/mL 10/17/2021 19:20 EDT [facility] Blood VENOUS BLOOD / Unknown 10/17/2021 9:20 EDT 10/17/2021 17:49 EDT Narrative [facility] - 10/17/2021 19:20 EDT NOTE: [...] & BLOOD GAS ORDERABLES Performing Organization Address [facility] Co de Phone Number [facility] [address] [place] [address] * ESTRADIOL, ADULTS (10/17/2021 9:20 EDT) Estradiol 25 See Note pg/mL 10/17/2021 18:52 EDT [facility] Comment: NOTE: FEMALE REFERENCE RANGES: [...] & BLOOD GAS ORDERABLES Performing Organization Address City/State/[facility] Co de Phone Number [facility] [address] [place] [address] documented in this encounter Visit Diagnoses Not on filedocumented in this encounter Care Teams Hogshead Wrecker Relationship Specialty Start Date End Date Alli Nguyen MD [address] [place] [address] PCP - General 03/01/15 documented as of this encounter
--- OUTSIDE RECORDS SUMMARY | 2024-02-24 10:38 | XMS_ITS | Encounter Summary ---
Author Organization [facility] Address [address] [place] [address] Care Team Providers Care Paint Sprayer Sandblaster Name Role Phone Alli Nguyen MD Primary Care Provider [phone] Encounter Details Date Type Department Care Team (Late st Contact Info) Description 02/15/2024 Lab Requisition [facility] Pathology & Laboratory Medicine - [address] [address] Outr Resulting Lab, Provider Social History Tobacco [...] Procedure Name Priority Date/Time Associated Diagnosis Comments IGG Routine 02/15/2024 11:20 EDT documented in this encounter Results * IGG (02/15/2024 11:20 EDT) IgG 1,430 610 - 1,616 mg/dL 02/16/2024 10:45 EDT [facility] Blood VENOUS BLOOD / Unknown 02/15/2024 11:20 EDT 02/15/2024 22:53 EDT Provider Outr Resulting Lab CHEMISTRY & BLOOD GAS ORDERABLES [facility] [address] [place] [address] documented in this encounter Visit Diagnoses Not on filedocumented in this encounter Care Teams Paint Sprayer Sandblaster Relationship Specialty Start Date End Date Alli Nguyen MD [address] [place], [place] [id number] PCP - General 03/01/15 documented as of this encounter
--- OUTSIDE RECORDS SUMMARY | 2024-02-24 10:38 | XMS_ITS | Clinical Summary ---
Author Organization [facility] Address [address] [place] [address] Care Team Providers Care Shingle Bolt Cutter Name Role Phone Alli Nguyen MD Primary Care Provider [phone] Encounters Date Type Department Care Team Description 02/15/2024 Lab Requisition [facility] Pathology & Laboratory [address] [address] Outr Resulting Lab, Provider 02/15/2024 Lab Requisition [facility] Pathology & Laboratory [facility] [address] [place] [address] Outr Resulting Lab, Provider from Last 3 [...] series) 07/20 COVID-19 Vaccine ( season) 2022 Procedures Procedure Name Priority Date/Time Associated Diagnosis [...] IgA <4.0 <20.0 CU 02/17/2024 9:56 EDT [facility] Comment: A negative result may be due to IgA deficiency and does not rule out celiac disease. Negative: <20.0 CU Weak Positive: 20.0-30.0 CU Positive: >30.0 CU Results were obtained with the ColppyA Flash h-tTG IgA chemiluminescent immunoassay. Values obtained with different manufacturers' assay methods may not be used interchangeably. IgA 171 85 - 499 mg/dL 02/17/2024 9:56 EDT [facility] Celiac Disease Interpretation Negative Serology. Celiac disease unlikely. Approximately 10% of patients with celiac disease are seronegative. Patients who are already adhering to a gluten-free diet may also be seronegative. If celiac disease is highly clinically suspected, referral to gastroenterology for additional evaluation is recommended. 02/17/2024 9:56 EDT [facility] Blood VENOUS BLOOD / Unknown 02/15/2024 11:20 EDT 02/15/2024 22:52 EDT Provider Outr Resulting Lab IMMUNOLOGY A ND SEROLOGY ORDERABLES [facility] [address] [place], [place] [address] * CCP ANTIBODIES (02/15/2024 11:20 EDT) CCP Antibodies <2.5 <5.0 U/mL 02/16/2024 10:17 EDT [facility] Blood VENOUS BLOOD / Unknown 02/15/2024 11:20 EDT 02/15/2024 22:52 EDT Provider Outr Resulting Lab IMMUNOLOGY A ND SEROLOGY ORDERABLES [facility] [address] [place], [place] [address] * RHEUMATOID FACTOR (02/15/2024 11:20 EDT) Pathologist [facility] Rheumatoid Factor <8.6 <12.0 IU/mL 02/15/2024 23:10 EDT [facility] Blood VENOUS BLOOD / Unknown 02/15/2024 11:20 EDT 02/15/2024 22:52 EDT Provider Outr Resulting Lab CHEMISTRY & BLOOD GAS ORDERABLES Performing Organization Address [facility] de Phone Number [facility] [address] [place] [address] * ANTI NUCLEAR AB (JO), IFA (02/15/2024 11:20 EDT) [facility] JO Interpretation Negative Negative 2023 12:56 EDT [facility] Comment:No titer performed, JO Screen is negative. Blood VENOUS BLOOD / Unknown 02/15/2024 11:20 EDT 02/15/2024 22:52 EDT Narrative [facility] - 02/16/2024 12:56 EDT Results were obtained with the [employer] Systemsfen NOVA Lite HEp-2 JO Kit by indirect immunofluorescence. Provider Outr Resulting Lab IMMUNOLOGY A ND SEROLOGY ORDERABLES Performing Organization Address [facility] Co de Phone Number [facility] [address] [place] [address] * IGG (02/15/2024 11:20 EDT) Pathologist [facility] IgG 1,430 610 - 1,616 mg/dL 02/16/2024 10:45 EDT [facility] Blood VENOUS BLOOD / Unknown 02/15/2024 11:20 EDT 02/15/2024 22:53 EDT Provider Outr Resulting Lab CHEMISTRY & BLOOD GAS ORDERABLES [facility] [address] [place] [address] from Last 3 Months Care Teams Shingle Bolt Cutter Relationship Specialty Start Date End Date Alli Nguyen MD [address] [place] [address] PCP - General 03/01/15
--- OUTSIDE RECORDS SUMMARY | 2024-02-24 10:38 | XMS_ITS | Encounter Summary ---
Author Organization [facility] Address [address] [place] [address] Care Team Providers Care Fax Machine Operator Name Role Phone Alli Nguyen MD Primary Care Provider [phone] Encounter Details Date Type Department Care Team (Late st Contact Info) Description 02/16/2023 Lab Requisition [facility] Pathology & Laboratory Medicine - Main [address] [address] Bhavya Mcnulty MD [facility] [place] [address] Encounter for other general examination Social History [...] Risk types, PCR Negative Negative 02/23/2023 16:39 [facility] Comment:No E6 or E7 mRNA is detected from HPV types 16,18,31,33,35,39,45,51,52,56,58,59,66, and 68 by tourist information officer mediated amplification. Pap Test CERVIX UTERI STRUCTURE / Unknown 02/11/2023 10:40 EDT 02/23/2023 8:26 EST Bhavya Mcnulty MD MICROBIOLOGY - GENER AL ORDERABLES [facility] [address] [place] [address] * PAP TEST (02/11/2023 10:40 EDT) Specimens A. Cervix and/or Endocervix , ThinPrep Imaging System with Manual Evaluation 02/23/2023 16:39 [facility] Specimen Adequacy Satisfactory for Evaluation - transformation zone component present Scant squamous epithelial component due to excess blood. 02/23/2023 16:39 [facility] General Categorization Negative for intraepithelial lesion or malignancy 02/23/2023 16:39 [facility] Descriptive Diagnosis Reactive cellular changes associated with inflammation present (includes repair). 02/23/2023 16:39 [facility] Educational Comments An additional slide was prepared and evaluated. 02/23/2023 16:39 [facility] Attestation By the signature below, the attending physician certifies that they have personally conducted a gross and/or microscopic examination of the described specimens and rendered or confirmed the above diagnosis. 02/23/2023 16:39 [facility] at 1639 Clinical History See below 02/24/20 16:39 [facility] HPV The result for the Human Papillomavirus (HPV) Detection-High Risk Types is Negative. No E6 or E7 mRNA is detected from HPV types 16,18,31,33,35,39 ,45,51,52,56,58,5 9,66, and 68 by tourist information officer mediated amplification.Meli ting was performed on specimen [id number] and was resulted on 02/23/2023 1639 EST by STEPHENIE, LAB INSTRUMENT RESULTS IN 02/23/2023 16:39 EST [facility] Performing Lab [facility] 02/23/2023 16:39 EST [facility] Scanned Images 02/23/2023 16:39 EST [facility] Pap Test CERVIX UTERI STRUCTURE / Unknown 02/11/2023 10:40 EDT 02/16/2023 10:10 EDT Bhavya Mcnulty MD PATHOLOGY ORDERABLES [facility] [address] [place] [address] documented in this encounter Visit Diagnoses Diagnosis Encounter for other general examination documented in this encounter Care Teams Fax Machine Operator Relationship Specialty Start Date End Date Alli Nguyen MD [address] [place] [address] PCP - General 03/01/15 documented as of this encounter
--- OUTSIDE RECORDS SUMMARY | 2024-02-24 10:38 | XMS_ITS | Encounter Summary ---
Author Organization [facility] Address [address] [place] [address] Care Team Providers Care Hull Inspector Name Role Phone Alli Nguyen MD Primary Care Provider [phone] Encounter Details Date Type Department Care Team (Late st Contact Info) Description 03/20/2017 Results Only [facility] [phone] Domonique Newman MD [address] [place], [place] [id number] Social History Tobacco Use Types Packs/Day Years [...] ? ASHKAN MERON ? Accession #: ? [id number] : ? 1995 (Age: 21) ??F ?Collect [...] Report Date: ??04/02/2017 10:53 End of Report [facility] 03/20/2017 03/24/2017 Domonique Newman MD PATHOLOGY ORDERABLES [facility] [address] [place] [address] documented in this encounter Visit Diagnoses Not on filedocumented in this encounter Care Teams Hull Inspector Relationship Specialty Start Date End Date Alli Nguyen MD [address] [place] [address] PCP - General 03/01/15 documented as of this encounter
--- OUTSIDE RECORDS SUMMARY | 2024-02-24 10:39 | XMS_ITS | Encounter Summary ---
[place] [address] Care Team Providers Care Hydrological Technical Officer Name Role Phone Alli Nguyen MD Primary Care Provider [phone] Encounter Details Date Type Department Care Team (Late st Contact Info) Description 10/25/2010 [place] [id number] Marina Winston RN Social History Tobacco Use [...] on filedocumented in this encounter Care Teams Hydrological Technical Officer Relationship Specialty Start Date End Date Alli Nguyen MD [address] [place] [address] PCP - General 07/31/10 01/25/24 documented as of this encounter
--- OUTSIDE RECORDS SUMMARY | 2024-02-24 10:39 | XMS_ITS | Encounter Summary ---
Author Organization [facility] [place] [address] Care Team Providers Care Contract Analyst Name Role Phone Alli Nguyen MD Primary Care Provider [phone] Reason for Visit * Reason Comments Left Finger Pain Left index finger ma ss Encounter Details Date Type Department Care Team (Late st Contact Info) Description 08/19/2010 1:00 PM EDT Office [place] [address] Johnathan Parkinson MD [facility] [address] [place] [address] Claudia Mullins MD [facility] [place] [address] Ganglion cyst of flexor tendon sheath (Primary [...] encounter Miscellaneous Notes * Miscellaneous - Brad Brush Polisher - 08/23/2010 8:56 AM EDT documented in [...] limb documented in this encounter Care Teams Contract Analyst Relationship Specialty Start Date End Date Alli Nguyen MD [address] [place] [address] PCP - General 07/31/10 01/25/24 documented as of this encounter
--- OUTSIDE RECORDS SUMMARY | 2024-02-24 10:39 | XMS_ITS | Encounter Summary ---
Author Organization [facility] [place] [address] Care Team Providers Care Social Work Specialist Name Role Phone Alli Nguyen MD Primary Care Provider [phone] Reason for Visit * Reason Onset Date Comments Finger Pain 08/02/2010 lump on finger Encounter Details Date Type Department Care Team (Late st Contact Info) Description 08/02/2010 [place] [address] Shimon Parkinson MD [facility] [place] [address] Finger Pain (lump on finger) Social History [...] limb documented in this encounter Care Teams Social Work Specialist Relationship Specialty Start Date End Date Alli Nguyen MD [address] [place] [address] PCP - General 07/31/10 01/25/24 documented as of this encounter
--- OUTSIDE RECORDS SUMMARY | 2024-02-24 10:39 | XMS_ITS | Encounter Summary ---
[place] [address] Care Team Providers Care Supervisor Machining Name Role Phone Soni Wade MD Primary Care Provider Reason for Referral * Consultation (Routine) - Authorized Specialty Diagnoses / Procedures Referred By Andreia t Referred To Contact Gastroenterology Diagnoses Abdominal distension (gaseous) ABDOMINAL BLOATING Soni Wade MD [address] [place] [address] [facility] [place] [address] Referral ID Status Reason Start Date Expiration Date Visits Requested Visits Authorized [id number] Authorized Consult, Test & Treat PCP Updated and/or Approved 01/07/2024 01/06/2025 6 6 Encounter Details Date Type Department Care Team (Latest Contact Info) Description 01/26/2024 Transcribe Orders eDH Incoming Referrals [phone] Soni Wade MD [address] [place] [address] Abdominal distension (gaseous) Social History [...] pain documented in this encounter Care Teams Supervisor Machining Relationship Specialty Start Date End Date Soni Wade MD [address] [place] [address] PCP - General Family Medicine 01/26/24 documented as of this encounter
--- OUTSIDE RECORDS SUMMARY | 2024-02-24 10:39 | XMS_ITS | Encounter Summary ---
Author Organization [facility] [place] [address] Care Team Providers Care Stockbroking Dealer Name Role Phone Alli Nguyen MD Primary Care Provider [phone] Reason for Visit * Reason Comments ADHD neuropsychological e valuation Encounter Details Date Type Department Care Team (Late st Contact Info) Description 02/20/2011 9:00 AM EDT Office Visit Psychiatry [place] [address] Vincent Casarez, PhD [facility] PSYCHIATRY - CHILD [place] [address] ADHD (attention deficit hyperactivity disorder) (Primary Dx) Social History Tobacco Use Types Packs/Day Years Used Date Smoking Tobacco: Never Assessed Sex and Gender Information Value Date Recorded Sex Assigned at Not on file Gender Identity Not on file Sexual Orientation Not on file documented as of this encounter Progress Notes * Vincent Casarez, PhD - 04/25/2011 3:33 PM EST Name: Meron Artis ID#: [id number] Date of : 1995 Age: 15 -7 School: [employer] Current Grade: 12 Date of Evaluation: [...] also receiving vocational rehabilitation services through the community health at this time. Medical history included weight [...] currently in the 12th grade at the [employer]. She is supported with an IEP [...] Developmental/Behavioral Medicine Evaluation by Joshua Bradley M.D. ([facility]), which detailed her [...] Further, adaptive behavior was measured using the Aspen-II Adaptive Behavior Scales completed with the parent/caregiver. Results were reported as overall Adaptive Behavior Composite =59 (Communication=64; Daily Living Skills=57; Socialization Skills=60; Motor Kyoadx=822). TESTS AND PROCEDURES ADMINISTERED General: Clinical Interview [...] Test (CPT) Oral Language: Verbal Fluency (D-KEFS) [place] Naming Test (BNT) Memory: [place] Verbal Learning [...] without difficulty and utilized an appropriate pencil clinical exercise physiologist. Attention and concentration was generally adequate throughout [...] (GEC) as well as the CARMEN and SD were significantly elevated. Specific scale elevations were [...] high school. A program such as [facility] [employer] may be able to provide her with [...] Psychiatric Clinic ([facility]) in Child Development at [facility]. Poor sleep quality may also contribute to [...] Bruner Psy.D. Post-Doctoral Fellow Tina Casarez, Ph.D., Highway Construction Inspector Neuropsychological Services Manager Of [facility] Services [place] Licensed Psychologist, #[id number] [place] Psychologist Doctorate, #[id number] This report was prepared by Tammi Bruner Psy.D., Postdoctoral Fellow in Pediatric Neuropsychology under the supervision of Mateo Casarez, Ph.D. cc: Rsoalind Artis (Mother) [address] [facility] [address] [place] [address] Dr. Maynor Nguyen [id number] [place] [address] Casarez???s file DATA TABLES DESCRIPTOR [...] 15 75 5 WJ-III READING FLUENCY 37 ( 73 4 raw score %ile BNT 46 [...] hyperactivity documented in this encounter Care Teams Stockbroking Dealer Relationship Specialty Start Date End Date Alli Nguyen MD [address] [place] [address] PCP - General 07/31/10 01/25/24 documented as of this encounter
--- OUTSIDE RECORDS SUMMARY | 2024-02-24 10:39 | XMS_ITS | Encounter Summary ---
Author Organization [facility] [place] [address] Care Team Providers Care Life Science Taxonomist Name Role Phone Alli Nguyen MD Primary Care Provider [phone] Reason for Visit * Reason Onset Date Comments No Show 09/21/2018 behavior contrac t Encounter Details Date Type Department Care Team (Late st Contact Info) Description 09/21/2018 Telephone Neurology at [facility] [place] [address] [place] [address] No Show (behavior contract) Social History Tobacco [...] on filedocumented in this encounter Care Teams Life Science Taxonomist Relationship Specialty Start Date End Date Alli Nguyen MD [address] [place] [address] PCP - General 07/31/10 01/25/24 documented as of this encounter
--- OUTSIDE RECORDS SUMMARY | 2024-02-24 10:39 | XMS_ITS | Encounter Summary ---
Author Organization [facility] [place] [address] Care Team Providers Care Harness Worker Name Role Phone Alli Nguyen MD Primary Care Provider + [phone] Reason for Visit * Reason Comments Left Finger Pain Encounter Details Date Type Department Care Team (Late st Contact Info) Description 09/23/2010 3:30 PM EDT [place] [address] CLINIC, Shimon Evans MD [facility] [place] [address] Scott Galan PA [facility] [place] [address] Ganglion cyst of flexor tendon sheath (Primary [...] Scheduled Procedures Name Priority Associated Diagnoses Date/Ti or EGD, UPPER GI ENDOSCOPY (WRV U 2.09) Bloating Chronic abdominal pain Heartburn Substernal chest pain Chronic nausea Unintentional weight loss Intractable migraine with aura without status migrainosus documented as of this encounter Visit Diagnoses Diagnosis Ganglion cyst of flexor tendon sheath- Primary Ganglion of tendon sheath documented in this encounter Care Teams Harness Worker Relationship Specialty Start Date End Date Alli Nguyen MD [address] [place] [address] PCP - General 07/31/10 01/25/24 documented as of this encounter
--- OUTSIDE RECORDS SUMMARY | 2024-02-24 10:39 | XMS_ITS | Clinical Summary ---
Author Organization [facility] Address [facility] [place] [address] Care Team Providers Care Informatics Nurse Specialist Name Role Phone Soni Wade MD Primary Care Provider [phone] Allergies Active Allergy Reactions Criticality Noted Date [...] Care Team Description 02/10/2024 [place] [address] Percy Mariee 02/08/2024 9:40 AM EDT TH Visit (TeleHealth) [place] [address] Shelby Rogers APRN Bloating; Chronic abdominal pain; Heartburn; Substernal chest pain; Chronic nausea; Unintentional weight loss; Intractable migraine with aura without status migrainosus 01/26/2024 Transcribe Orders eDH Incoming Referrals [phone] Soni Wade MD Abdominal distension (gaseous) from [...] - Influenza standard series) 12/20/2023 Care Teams Informatics Nurse Specialist Relationship Specialty Start Date End Date Soni Wade MD [address] [place], [place] [id number] PCP - General Family Medicine 01/26/24
--- OUTSIDE RECORDS SUMMARY | 2024-02-24 10:39 | XMS_ITS | Encounter Summary ---
[place] [address] Care Team Providers Care Pickle Solution Maker Name Role Phone Soni Wade MD Primary Care Provider [phone] Encounter Details Date Type Department Care Team (Late st Contact Info) Description 02/10/2024 Telephone [place] [address] Percy Mariee Social History Tobacco [...] on filedocumented in this encounter Care Teams Pickle Solution Maker Relationship Specialty Start Date End Date Soni Wade MD [address] [place] [address] PCP - General Family Medicine 01/26/24 documented as of this encounter
--- OUTSIDE RECORDS SUMMARY | 2024-02-24 10:39 | XMS_ITS | Encounter Summary ---
[place] [address] Care Team Providers Care Electrical Electronics Technician Name Role Phone Soni Wade MD Primary Care Provider [phone] Reason for Referral * Diagnostic Test (Routine) - Authorized Specialty Diagnoses / Procedures Referred By Andreia reddy Referred To Contact Gastroenterology Diagnoses Bloating Chronic abdominal pain Heartburn Substernal chest pain Chronic nausea Unintentional weight loss Intractable migraine with aura without status migrainosus HBT - lactulose - bloating Procedures Breath Hydrogen Test Shelby Rogers APRN [facility] [place] [address] [facility] [address] [place] [address] Referral ID Status Reason Start Date Expiration Date Visits Requested Visits Authorized [id number] Authorized Consult, Test & Treat 02/08/2024 02/07/2025 1 1 Reason for Visit * Consultation (Routine) - Authorized Specialty Diagnoses / Procedures Referred By Andreia reddy Referred To Contact Gastroenterology Diagnoses Abdominal distension (gaseous) ABDOMINAL BLOATING Soni Wade MD [address] [place] [address] [facility] [address] [place] [phone] Referral ID Status Reason Start Date Expiration Date Visits Requested Visits Authorized [id number] Authorized Consult, Test & Treat PCP Updated and/or Approved 01/07/2024 01/06/2025 6 6 Encounter Details Date Type Department Care Team (Latest Contact Info) Description 02/08/2024 9:40 AM EDT TH Visit (TeleHealth) [place] [address] Shelby Rogers APRN [facility] [place] [place] [address] Bloating; Chronic abdominal pain; Heartburn; Substernal chest [...] EGD, UPPER GI ENDOSCOPY (WRVU 2.09) [facility] [place] IgA IgG Tissue Transglutaminase, IgA Calprotectin, Stool Breath Hydrogen Test For procedures that have been ordered please call :Endoscopy Scheduling at [phone] For blood work or stool studies ordered, please go to or any [facility] affiliated lab. As the results come back from your various tests, we will only contact you for results which a change in your treatment plan. Normal results that are visible by [facility] will not receive additional communication. Otherwise, you will receive these results from our team either at a follow-up visit, phone call, letter, or through eDH, which will be determined by your provider. You will likely see the results through your [facility] portal several days before you get additional [...] by completing this brief 9 question survey: [email or web address] Sincerely, Shelby Rogers APRN Department of Gastroenterology and Hepatology [facility] documented in this encounter Progress Notes * Shelby Rogers APRN - 02/08/2024 9:40 AM EDT Gastroenterology [facility] (telemedicine) Chief Complaint: Meron Artis is a 28 y.o. patient referred for consultation by Dr. Wade for bloating History of Present Illness: 28 [...] medications by another provider outside of the [facility] for this symptom? Yes What was the name of the medication? Famotidine 40mg How long did you take it? Not much Have you been to the emergency room or urgent care for your symptom(s)? No Have you had surgery outside of the [facility] for your symptom(s)? No What testing have [...] of this triage visit. Shelby Rogers APRN [facility] [place] [phone] documented in this encounter Plan of Treatment [...] aura without status migrainosus Ordered: 02/08/2024 [facility] [place] [facility] Routine Bloating Chronic abdominal pain Heartburn [...] migrainosus documented in this encounter Care Teams Electrical Electronics Technician Relationship Specialty Start Date End Date Soni Wade MD [address] [place] [address] PCP - General Family Medicine 01/26/24 documented as of this encounter
--- OUTSIDE RECORDS SUMMARY | 2024-02-24 10:39 | XMS_ITS | Encounter Summary ---
[place] [address] Care Team Providers Care Wrinkle Chaser Name Role Phone Alli Nguyen MD Primary Care Provider [phone] Encounter Details Date Type Department Care Team (Latest Contact Info) Description 09/23/2010 2:10 PM EDT - 09/23/2010 11:59 PM EDT Hospital [place] [address] Ganglion cyst of flexor tendon sheath Social [...] mLs documented in this encounter Care Teams Wrinkle Chaser Relationship Specialty Start Date End Date Alli Nguyen MD [address] [place] [address] PCP - General 07/31/10 01/25/24 documented as of this encounter
[2024-02-27 19:55] LABS: Calprotectin <50.0 mcg/g
== END 2024-02-24 10:36 | disposition home or self-care (01) ==
LOC: NCHCN 10:35
PROVIDERS: PCP Family Medicine; Visit Provider Family Medicine
DX: R14.0 Abdominal distension (gaseous) (principal)
CPT/HCPCS: 83993

== ENCOUNTER 2024-04-15 14:18 | Outpatient (REF) | payer MEDICAID, SELFPAY ==
--- OUTSIDE RECORDS SUMMARY | 2024-04-15 14:22 | XMS_ITS | Encounter Summary ---
Author Organization [facility] Address [address] [place] [address] Care Team Providers Care Computer Animator Name Role Phone Alli Nguyen MD Primary Care Provider Encounter Details Date Type Department Care Team (Late st Contact Info) Description 03/20/2017 Results Only [facility] [phone] Domonique Newman MD [address] [place], [place] [id number] Social History Tobacco Use Types Packs/Day Years Used Date Smoking Tobacco: Never Assessed Comments Unknown Sex and Gender Information Value Date Recorded Sex Assigned at Not on file Legal Sex Female 18:21 EST Gender Identity Not on file Sexual Orientation [...] ? ASHKAN MERON ? Accession #: ? [id number] : ? 1995 (Age: 21) ??F ?Collect [...] Report Date: ??04/02/2017 10:53 End of Report [facility] 03/20/2017 03/24/2017 us Domonique Newman MD PATHOLOGY ORDERABLES Final Res ult [facility] [address] [place] [address] documented in this encounter Visit Diagnoses Not on filedocumented in this encounter Care Teams Computer Animator Relationship Specialty Start Date End Date Alli Nguyen MD [address] [place], [place] [id number] PCP - General 03/01/15 documented as of this encounter
--- OUTSIDE RECORDS SUMMARY | 2024-04-15 14:22 | XMS_ITS | Referral Summary ---
Author Organization [facility] Address [address] [place] [address] Care Team Providers Care Interior Design Project Manager Name Role Phone Alli Nguyen MD Primary Care Provider [phone] Encounters Date Type Department Care Team Description 02/15/2024 Lab Requisition [facility] Pathology & Laboratory [address] [address] Outr Resulting Lab, Provider 02/15/2024 Lab Requisition [facility] Pathology & Laboratory [facility] [address] [place] [address] Outr Resulting Lab, Provider from Last 3 Months Social History Tobacco Use Types Packs/Day Years Used Date Smoking Tobacco: Never Assessed Interpersonal Safety Answer Date Record ed Physically Hurt Never 11/20/2019 Verbally Threaten Not on file 11/20/2019 Comments Unknown Sex and Gender Information Value [...] IgA <4.0 <20.0 CU 02/17/2024 9:56 EDT [facility] Comment: A negative result may be due to IgA deficiency and does not rule out celiac disease. Negative: <20.0 CU Weak Positive: 20.0-30.0 CU Positive: >30.0 CU Results were obtained with the [employer] Flash h-tTG IgA chemiluminescent immunoassay. Values obtained with different manufacturers' assay methods may not be used interchangeably. IgA 171 85 - 499 mg/dL 02/17/2024 9:56 EDT [facility] Celiac Disease Interpretation Negative Serology. Celiac disease unlikely. Approximately 10% of patients with celiac disease are seronegative. Patients who are already adhering to a gluten-free diet may also be seronegative. If celiac disease is highly clinically suspected, referral to gastroenterology for additional evaluation is recommended. 02/17/2024 9:56 EDT [facility] Blood VENOUS BLOOD / Unknown 02/15/2024 11:20 EDT 02/15/2024 22:52 EDT us Provider Outr Resulting Lab IMMUNOLOGY AND SEROL OGY ORDERABLES Final Result Performing Organization Address [facility] Co de Phone Number [facility] [address] [place] [address] * CCP ANTIBODIES (02/15/2024 11:20 EDT) CCP Antibodies <2.5 <5.0 U/mL 02/16/2024 10:17 EDT [facility] Blood VENOUS BLOOD / Unknown 02/15/2024 11:20 EDT 02/15/2024 22:52 EDT us Provider Outr Resulting Lab IMMUNOLOGY AND SEROL OGY ORDERABLES Final Result Performing Organization Address City/[facility]/ZIP Co de Phone Number [facility] [address] [place] [address] * RHEUMATOID FACTOR (02/15/2024 11:20 EDT) Pathologist [facility] Rheumatoid Factor <8.6 <12.0 IU/mL 02/15/2024 23:10 EDT [facility] Blood VENOUS BLOOD / Unknown 02/15/2024 11:20 EDT 02/15/2024 22:52 EDT us Provider Outr Resulting Lab CHEMISTRY & BLOOD GA S ORDERABLES Final Result Performing Organization Address City/[facility]/ZIP Co de Phone Number [facility] [address] [place] [address] * ANTI NUCLEAR AB (JO), IFA (02/15/2024 11:20 EDT) Pathologist [facility] JO Interpretation Negative Negative 2023 12:56 EDT [facility] Comment:No titer performed, JO Screen is negative. Blood VENOUS BLOOD / Unknown 02/15/2024 11:20 EDT 02/15/2024 22:52 EDT Narrative [facility] - 02/16/2024 12:56 EDT Results were obtained with the [employer] NOVA Lite HEp-2 JO Kit by indirect immunofluorescence. us Provider Outr Resulting Lab IMMUNOLOGY AND SEROL OGY ORDERABLES Final Result Performing Organization Address City/[facility]/ZIP Co de Phone Number [facility] [address] [place] [address] * IGG (02/15/2024 11:20 EDT) Pathologist [facility] IgG 1,430 610 - 1,616 mg/dL 02/16/2024 10:45 EDT [facility] Blood VENOUS BLOOD / Unknown 02/15/2024 11:20 EDT 02/15/2024 22:53 EDT us Provider Outr Resulting Lab CHEMISTRY & BLOOD GA S ORDERABLES Final Result [facility] [address] [place] [address] from Last 3 Months Insurance [place] Care Teams Interior Design Project Manager Relationship Specialty Start Date End Date Alli Nguyen MD [address] [place] [address] PCP - General 03/01/15
--- OUTSIDE RECORDS SUMMARY | 2024-04-15 14:22 | XMS_ITS | Encounter Summary ---
Author Organization [facility] Address [address] [place] [address] Care Team Providers Care Cheese Processor Name Role Phone Alli Nguyen MD Primary Care Provider [phone] Encounter Details Date Type Department Care Team (Late st Contact Info) Description 08/15/2022 Lab Requisition [facility] Pathology & Laboratory Medicine - [address] [id number] Outr Resulting Lab, Provider Social History Tobacco [...] gonorrhoeae Result Negative Negative 08/16/2022 15:10 EDT [facility] Chlamydia trachomatis Result Negative Negative 08/16/2022 15:10 EDT [facility] Swab ENTIRE ENDOCERVIX / Unknown 08/15/2022 12:00 EDT 08/15/2022 22:25 EDT us Provider Outr Resulting Lab MICROBIOLOGY - GENER AL ORDERABLES Final Result [facility] [address] [place] [address] documented in this encounter Visit Diagnoses Not on filedocumented in this encounter Care Teams Cheese Processor Relationship Specialty Start Date End Date Alli Nguyen MD [address] [place], [place] [id number] PCP - General 03/01/15 documented as of this encounter
--- OUTSIDE RECORDS SUMMARY | 2024-04-15 14:22 | XMS_ITS | Encounter Summary ---
Author Organization [facility] Address [address] [place] [address] Care Team Providers Care Bench Carpenter Name Role Phone Alli Nguyen MD Primary Care Provider [phone] Encounter Details Date Type Department Care Team (Latest Contact Info) Description 08/27/2022 Lab Requisition [facility] Pathology & Laboratory Medicine - [address] [address] Bhavya Mcnulty MD [address] [place] [address] [address] [place] [address] Noninflammatory disorder of cervix uteri, unspecified Social [...] explore management options, if applicable. 09/02/2022 10:50 [facility] Final Diagnosis A. ENDOCERVIX, CURETTAGE: - Predominantly blood with rare fragment of inflammatory debris and minute fragment of benign squamous epithelium. B. ENDOMETRIUM, CURETTAGE: - Predominantly blood with rare fragment of squamous cell epithelium. - No endometrial tissue present for evaluation. 09/02/2022 10:50 [facility] Diagnosis Comment Deeper sections have been examined on parts A and B. 09/02/2022 10:50 [facility] Attestation There was significant resident/fellow involvement in the diagnostic evaluation of this case. By the signature below, the attending physician certifies that they have personally conducted a gross and/or microscopic examination of the described specimens and rendered or confirmed the above diagnosis. 09/02/2022 10:50 [facility] at 1050 Clinical History Cervix abnormality, abnl cervical bleeding 09/02/2022 10:50 [facility] Gross Description A. Received [...] B1. Debra Alicea 08/28/2022 12:14 09/02/2022 10:50 [facility] Resident/Arian w: Jenn Encarnacion MD 09/02/2022 10:50 [facility] Performing Lab [facility] 09/02/2022 10:50 [facility] Scanned Images 09/02/2022 10:50 [facility] Tissue ENTIRE ENDOMETRIUM / Unknown 08/27/2022 10:42 EDT 08/27/2022 16:48 EDT Tissue specimen (specimen) ENDOMETRIAL STRUCTURE / Unknown 08/27/2022 10:42 EDT 08/27/2022 16:48 EDT us Bhavya Mcnulty MD PATHOLOGY ORDERABLES Final Res ult [facility] [address] [place] [address] documented in this encounter Visit Diagnoses Diagnosis Noninflammatory disorder of cervix uteri, unspecified documented in this encounter Care Teams Bench Carpenter Relationship Specialty Start Date End Date Alli Nguyen MD [address] [place] [address] PCP - General 03/01/15 documented as of this encounter
--- OUTSIDE RECORDS SUMMARY | 2024-04-15 14:22 | XMS_ITS | Encounter Summary ---
Author Organization [facility] Address [address] [place] [address] Care Team Providers Care Data Software Engineer Name Role Phone Alli Nguyen MD Primary Care Provider [phone] Encounter Details Date Type Department Care Team (Late st Contact Info) Description 12/19/2021 Lab Requisition [facility] Pathology & Laboratory Medicine - [address] [address] Bhavya Mcnulty MD [facility] [place], [place] [address] Encounter for other general examination Social History [...] explore management options, if applicable. 12/24/2021 13:56 [facility] Final Diagnosis A. FALLOPIAN TUBE, [...] zone mucosa, negative for dysplasia. 12/24/2021 13:56 [facility] Attestation There was significant resident/fellow involvement in the diagnostic evaluation of this case. By the signature below, the attending physician certifies that they have personally conducted a gross and/or microscopic examination of the described specimens and rendered or confirmed the above diagnosis. 12/24/2021 13:56 [facility] at 1356 Clinical History Desired sterilization; LEEP for DON II 12/24/2021 13:56 [facility] Gross Description A. Received in [...] are identified. The entire fimbria and a sales representative malt liquors cross-section are submitted in A1 and A2. [...] are identified. The entire fimbria and a sales representative malt liquors cross-section are submitted in B1 and B2. [...] D1-D5. YIN GOULD(ASCP) 12/19/2021 15:56 12/24/2021 13:56 [facility] Resident/Arian w: Mat Read DO 12/24/2021 13:56 [facility] Performing Lab [facility] 13:56 T [facility] Scanned Images 12/24/2021 13:56 T [facility] Tissue ENTIRE WALL OF CERVIX / Unknown 12/18/2021 14:20 EDT 12/19/2021 8:30 EDT Tissue specimen (specimen) FALLOPIAN TUBE STRUCTURE / Unknown 12/18/2021 14:20 EDT 12/19/2021 8:30 EDT Tissue specimen (specimen) CERVIX UTERI STRUCTURE / Unknown 12/18/2021 14:20 EDT 12/19/2021 8:30 EDT Tissue specimen (specimen) CERVIX UTERI STRUCTURE / Unknown 12/18/2021 14:20 EDT 12/19/2021 8:30 EDT us Bhavya Mcnulty MD PATHOLOGY ORDERABLES Final Res ult [facility] [address] [place] [address] documented in this encounter Visit Diagnoses Diagnosis Encounter for other general examination documented in this encounter Care Teams Data Software Engineer Relationship Specialty Start Date End Date Alli Nguyen MD [address] [place], [place] [phone] PCP - General 03/01/15 documented as of this encounter
--- OUTSIDE RECORDS SUMMARY | 2024-04-15 14:22 | XMS_ITS | Clinical Summary ---
Author Organization [facility] Address [address] [place] [address] Care Team Providers Care Fireboat Operator Name Role Phone Alli Nguyen MD Primary Care Provider [phone] Encounters Date Type Department Care Team Description 02/15/2024 Lab Requisition [facility] Pathology & Laboratory [address] [address] Outr Resulting Lab, Provider 02/15/2024 Lab Requisition [facility] Pathology & Laboratory [facility] [address] [place] [address] Outr Resulting Lab, Provider from Last 3 [...] 3-dose series) 07/20 COVID-19 Vaccine ( season) 2023 Procedures Procedure Name Priority Date/Time Associated Diagnosis [...] IgA <4.0 <20.0 CU 02/17/2024 9:56 EDT [facility] Comment: A negative result may be due to IgA deficiency and does not rule out celiac disease. Negative: <20.0 CU Weak Positive: 20.0-30.0 CU Positive: >30.0 CU Results were obtained with the [employer] Flash h-tTG IgA chemiluminescent immunoassay. Values obtained with different manufacturers' assay methods may not be used interchangeably. IgA 171 85 - 499 mg/dL 02/17/2024 9:56 EDT [facility] Celiac Disease Interpretation Negative Serology. Celiac disease unlikely. Approximately 10% of patients with celiac disease are seronegative. Patients who are already adhering to a gluten-free diet may also be seronegative. If celiac disease is highly clinically suspected, referral to gastroenterology for additional evaluation is recommended. 02/17/2024 9:56 EDT [facility] Blood VENOUS BLOOD / Unknown 02/15/2024 11:20 EDT 02/15/2024 22:52 EDT us Provider Outr Resulting Lab IMMUNOLOGY AND SEROL OGY ORDERABLES Final Result [facility] [address] [place] [address] * CCP ANTIBODIES (02/15/2024 11:20 EDT) CCP Antibodies <2.5 <5.0 U/mL 02/16/2024 10:17 EDT [facility] Blood VENOUS BLOOD / Unknown 02/15/2024 11:20 EDT 02/15/2024 22:52 EDT us Provider Outr Resulting Lab IMMUNOLOGY AND SEROL OGY ORDERABLES Final Result Performing Organization Address City/[facility]/ZIP Co de Phone Number [facility] [address] [place] [address] * RHEUMATOID FACTOR (02/15/2024 11:20 EDT) Pathologist [facility] Rheumatoid Factor <8.6 <12.0 IU/mL 02/15/2024 23:10 EDT [facility] Blood VENOUS BLOOD / Unknown 02/15/2024 11:20 EDT 02/15/2024 22:52 EDT us Provider Outr Resulting Lab CHEMISTRY & BLOOD GA S ORDERABLES Final Result Performing Organization Address [facility] Co de Phone Number [facility] [address] [place] [phone] * ANTI NUCLEAR AB (JO), IFA (02/15/2024 11:20 EDT) [facility] JO Interpretation Negative Negative 2023 12:56 EDT [facility] Comment:No titer performed, JO Screen is negative. Blood VENOUS BLOOD / Unknown 02/15/2024 11:20 EDT 02/15/2024 22:52 EDT Narrative [facility] - 02/16/2024 12:56 EDT Results were obtained with the [employer] NOVA Lite HEp-2 JO Kit by indirect immunofluorescence. us Provider Outr Resulting Lab IMMUNOLOGY AND SEROL OGY ORDERABLES Final Result Performing Organization Address [facility]/ZIP Co de Phone Number [facility] [address] [place] [address] * IGG (02/15/2024 11:20 EDT) [facility] IgG 1,430 610 - 1,616 mg/dL 02/16/2024 10:45 EDT [facility] Blood VENOUS BLOOD / Unknown 02/15/2024 11:20 EDT 02/15/2024 22:53 EDT us Provider Outr Resulting Lab CHEMISTRY & BLOOD GA S ORDERABLES Final Result [facility] [address] [place] [address] from Last 3 Months Insurance [place] Care Teams Fireboat Operator Relationship Specialty Start Date End Date Alli Nguyen MD [address] [place] [address] PCP - General 03/01/15
--- OUTSIDE RECORDS SUMMARY | 2024-04-15 14:22 | XMS_ITS | Encounter Summary ---
Author Organization [facility] Address [address] [place] [address] Care Team Providers Care Otr Owner Operator Name Role Phone Alli Nguyen MD Primary Care Provider [phone] Encounter Details Date Type Department Care Team (Late st Contact Info) Description 10/10/2021 Lab Requisition [facility] Pathology & Laboratory Medicine - [address] [id number] Outr Resulting Lab, Provider Social History Tobacco [...] gonorrhoeae Result Negative Negative 10/11/2021 14:44 EDT [facility] Chlamydia trachomatis Result Negative Negative 10/11/2021 14:44 EDT [facility] Swab ENTIRE ENDOCERVIX / Unknown 10/10/2021 10:30 EDT 10/10/2021 22:47 EDT us Provider Outr Resulting Lab MICROBIOLOGY - GENER AL ORDERABLES Final Result [facility] [address] [place] [address] documented in this encounter Visit Diagnoses Not on filedocumented in this encounter Care Teams Otr Owner Operator Relationship Specialty Start Date End Date Alli Nguyen MD [address] [place], [place] [phone] PCP - General 03/01/15 documented as of this encounter
--- OUTSIDE RECORDS SUMMARY | 2024-04-15 14:22 | XMS_ITS | Encounter Summary ---
Author Organization [facility] Address [address] [place] [address] Care Team Providers Care Metalworking Instructor Name Role Phone Alli Nguyen MD Primary Care Provider [phone] Encounter Details Date Type Department Care Team (Late st Contact Info) Description 02/15/2024 Lab Requisition [facility] Pathology & Laboratory Medicine - [address] [address] Outr Resulting Lab, Provider Social History Tobacco [...] Factor <8.6 <12.0 IU/mL 02/15/2024 23:10 EDT [facility] Blood VENOUS BLOOD / Unknown 02/15/2024 11:20 EDT 02/15/2024 22:52 EDT us Provider Outr Resulting Lab CHEMISTRY & BLOOD GA S ORDERABLES Final Result Performing Organization Address [facility]/ZIP Co de Phone Number [facility] [address] [place] [address] * ANTI NUCLEAR AB (JO), IFA (02/15/2024 11:20 EDT) JO Interpretation Negative Negative 2023 12:56 EDT [facility] Comment:No titer performed, JO Screen is negative. Blood VENOUS BLOOD / Unknown 02/15/2024 11:20 EDT 02/15/2024 22:52 EDT Narrative [facility] - 02/16/2024 12:56 EDT Results were obtained with the [employer] NOVA Lite HEp-2 JO Kit by indirect immunofluorescence. us Provider Outr Resulting Lab IMMUNOLOGY AND SEROL OGY ORDERABLES Final Result Performing Organization Address [facility] Co de Phone Number [facility] [address] [place] [id number] * CCP ANTIBODIES (02/15/2024 11:20 EDT) Pathologist [facility] CCP Antibodies <2.5 <5.0 U/mL 02/16/2024 10:17 EDT [facility] Blood VENOUS BLOOD / Unknown 02/15/2024 11:20 EDT 02/15/2024 22:52 EDT us Provider Outr Resulting Lab IMMUNOLOGY AND SEROL OGY ORDERABLES Final Result Performing Organization Address City/[facility]/ZIP Co de Phone Number [facility] [address] [place] [address] * CELIAC DISEASE PANEL (02/15/2024 11:20 EDT) Tissue Transglutaminase Antibody, IgA <4.0 <20.0 CU 02/17/2024 9:56 EDT [facility] Comment: A negative result may be due to IgA deficiency and does not rule out celiac disease. Negative: <20.0 CU Weak Positive: 20.0-30.0 CU Positive: >30.0 CU Results were obtained with the Anpro21A Flash h-tTG IgA chemiluminescent immunoassay. Values obtained with different manufacturers' assay methods may not be used interchangeably. IgA 171 85 - 499 mg/dL 02/17/2024 9:56 EDT [facility] Celiac Disease Interpretation Negative Serology. Celiac disease unlikely. Approximately 10% of patients with celiac disease are seronegative. Patients who are already adhering to a gluten-free diet may also be seronegative. If celiac disease is highly clinically suspected, referral to gastroenterology for additional evaluation is recommended. 02/17/2024 9:56 EDT [facility] Blood VENOUS BLOOD / Unknown 02/15/2024 11:20 EDT 02/15/2024 22:52 EDT us Provider Outr Resulting Lab IMMUNOLOGY AND SEROL OGY ORDERABLES Final Result Performing Organization Address City/State/[facility] Co de Phone Number [facility] [address] [place] [address] documented in this encounter Visit Diagnoses Not on filedocumented in this encounter Care Teams Metalworking Instructor Relationship Specialty Start Date End Date Alli Nguyen MD [address] [place], [place] [id number] PCP - General 03/01/15 documented as of this encounter
--- OUTSIDE RECORDS SUMMARY | 2024-04-15 14:22 | XMS_ITS | Encounter Summary ---
Author Organization [facility] Address [address] [place] [address] Care Team Providers Care Grant Coordinator Name Role Phone Alli Nguyen MD Primary Care Provider [phone] Encounter Details Date Type Department Care Team (Late st Contact Info) Description 01/03/2021 Lab Requisition [facility] Pathology & Laboratory Medicine - [address] [address] Joni Lugo MD [address] [facility] [address] [place], [place] [address] Encounter for other general examination Social History [...] explore management options, if applicable. 01/06/2021 14:38 [facility] Final Diagnosis A. SKIN OF ABDOMEN, LEFT LOWER QUADRANT, SHAVE BIOPSY: -Intradermal nevus. 01/06/2021 14:38 [facility] Attestation By the signature below, the attending physician certifies that they have 1) personally conducted a gross and/or microscopic examination of the described specimen(s), and/or personally interpreted the results of laboratory testing of the described specimen(s), and 2) personally rendered or confirmed the above diagnosis. 01/06/2021 14:38 [facility] at 1438 Clinical History Nevus 01/06/2021 14:38 [facility] Gross Description A. Received in formalin labelled with proper patient identification (initials W, L) and LLQ ABD is a 0.7 x 0.5 x 0.5 cm polypoid fragment of prasad to dark brown skin. The margin is inked. The specimen is bisected and entirely submitted in A1. YIN MANUEL(ASCP) 01/03/2021 10:18 01/06/2021 14:38 [facility] Performing Lab [facility] 01/06/2021 14:38 [facility] Scanned Images 01/06/2021 14:38 [facility] Tissue TISSUE SPECIMEN FROM SKIN / Unknown 01/02/2021 11:15 EDT 01/03/2021 8:23 EDT us Joni Lugo MD PATHOLOGY ORDERABLES Final Resul t [facility] [address] [place] [address] documented in this encounter Visit Diagnoses Diagnosis Encounter for other general examination documented in this encounter Care Teams Grant Coordinator Relationship Specialty Start Date End Date Alli Nguyen MD [address] [place], [place] [id number] PCP - General 03/01/15 documented as of this encounter
--- OUTSIDE RECORDS SUMMARY | 2024-04-15 14:22 | XMS_ITS | Encounter Summary ---
Author Organization [facility] Address [address] [place] [address] Care Team Providers Care Proofer Prepress Name Role Phone Alli Nguyen MD Primary Care Provider [phone] Encounter Details Date Type Department Care Team (Late st Contact Info) Description 03/18/2022 Lab Requisition [facility] Pathology & Laboratory Medicine - [address] [id number] Outr Resulting Lab, Provider Social History Tobacco [...] IGA <1.2 <4.0 U/mL 03/19/2022 10:29 EST [facility] Comment: A negative result may be due to IgA deficiency and does not rule out celiac disease. ? Negative: ??<4.0 U/mL ? Weak Positive: ??4.0 - 10.0 U/mL ? Positive: ??>10.0 U/mL Results were obtained with the [employer] Lite R h-tTG IgA CHECO assay on the [employer] DSX. IgA 173 85 - 499 mg/dL 03/19/2022 10:29 EST [facility] Celiac Disease Interpretation Negative Serology. Celiac disease unlikely. Approximately 10% of patients with celiac disease are seronegative. Patients who are already adhering to a gluten-free diet may also be seronegative. If celiac disease is highly clinically suspected, referral to gastroenterology for additional evaluation is recommended. 03/19/2022 10:29 EST [facility] Blood VENOUS BLOOD / Unknown 03/18/2022 12:20 EST 03/18/2022 21:16 EST us Provider Outr Resulting Lab IMMUNOLOGY AND SEROL OGY ORDERABLES Final Result Performing Organization Address City/State/[facility] Co de Phone Number [facility] [address] [place] [address] documented in this encounter Visit Diagnoses Not on filedocumented in this encounter Care Teams Proofer Prepress Relationship Specialty Start Date End Date Alli Nguyen MD [address] [place], [place] [phone] PCP - General 03/01/15 documented as of this encounter
--- OUTSIDE RECORDS SUMMARY | 2024-04-15 14:22 | XMS_ITS | Clinical Summary ---
Author Organization [facility] Address [facility] [place] [address] Care Team Providers Care Report Analyst Name Role Phone Soni Wade MD Primary Care Provider [phone] Allergies Active Allergy Reactions Criticality Noted Date [...] Encounters Date Type Department Care Team Description 04/04/2024 [place] [address] Percy Mariee 02/10/2024 [place] [address] Percy Mariee 02/08/2024 9:40 AM EDT TH Visit (TeleHealth) [place] [address] Sue Shelbysimone Aguayo APRN Bloating; Chronic abdominal pain; Heartburn; Substernal chest pain; Chronic nausea; Unintentional weight loss; Intractable migraine with aura without status migrainosus 01/26/2024 Transcribe Orders eDH Incoming Referrals [phone] Soni Wade MD Abdominal distension (gaseous) from [...] PAP Smear 07/21/2023 Covid-19 Vaccine (2 - 2023- season) 12/20/202302/2022 Influenza (Flu) vaccine (1 o f 1 - Influenza standard series) 12/20/2023 Care Teams Report Analyst Relationship Specialty Start Date End Date Soni Wade MD [address] [place] [address] PCP - General Family Medicine 01/26/24
--- OUTSIDE RECORDS SUMMARY | 2024-04-15 14:22 | XMS_ITS | Encounter Summary ---
Author Organization [facility] Address [address] [place] [address] Care Team Providers Care Weather Algorithm Scientist Name Role Phone Alli Nguyen MD Primary Care Provider [phone] Encounter Details Date Type Department Care Team (Late st Contact Info) Description 02/15/2024 Lab Requisition [facility] Pathology & Laboratory Medicine - [address] [id number] Outr Resulting Lab, Provider Social History Tobacco [...] 610 - 1,616 mg/dL 02/16/2024 10:45 EDT [facility] Blood VENOUS BLOOD / Unknown 02/15/2024 11:20 EDT 02/15/2024 22:53 EDT us Provider Outr Resulting Lab CHEMISTRY & BLOOD GA S ORDERABLES Final Result [facility] [address] [place] [address] documented in this encounter Visit Diagnoses Not on filedocumented in this encounter Care Teams Weather Algorithm Scientist Relationship Specialty Start Date End Date Alli Nguyen MD [address] [place], [place] [phone] PCP - General 03/01/15 documented as of this encounter
--- OUTSIDE RECORDS SUMMARY | 2024-04-15 14:22 | XMS_ITS | Encounter Summary ---
Author Organization [facility] Address [address] [place] [address] Care Team Providers Care Professor Of Forest Planning Name Role Phone Alli Nguyen MD Primary Care Provider [phone] Encounter Details Date Type Department Care Team (Late st Contact Info) Description 10/17/2021 Lab Requisition [facility] Pathology & Laboratory Medicine - [address] [phone] Outr Resulting Lab, Provider Social History Tobacco [...] 9:20 EDT) Hold Hold 10/17/2021 19:01 EDT [facility] Blood VENOUS BLOOD / Unknown 10/17/2021 9:20 EDT 10/17/2021 17:49 EDT us Provider Outr Resulting Lab LAB INFO SERVICE AND SUPPORT & PHONE RESULT Final Result Performing Organization Address [facility] Co de Phone Number [facility] [address] [place] [address] * FSH (10/17/2021 9:20 EDT) FSH 7.1 See Note mIU/mL 10/17/2021 19:20 EDT [facility] Blood VENOUS BLOOD / Unknown 10/17/2021 9:20 EDT 10/17/2021 17:49 EDT Narrative [facility] - 10/17/2021 19:20 EDT [...] <13 years old have not been established. us Provider Outr Resulting Lab CHEMISTRY & BLOOD GA S ORDERABLES Final Result Performing Organization Address [facility]/ZIP Co de Phone Number [facility] [address] [place] [address] * ESTRADIOL, ADULTS (10/17/2021 9:20 EDT) Estradiol 25 See Note pg/mL 10/17/2021 18:52 EDT [facility] Comment: NOTE: FEMALE REFERENCE [...] Unknown 10/17/2021 9:20 EDT 10/17/2021 17:49 EDT us Provider Outr Resulting Lab CHEMISTRY & BLOOD GA S ORDERABLES Final Result Performing Organization Address City/State/[facility] Co de Phone Number [facility] [address] [place] [address] documented in this encounter Visit Diagnoses Not on filedocumented in this encounter Care Teams Professor Of Forest Planning Relationship Specialty Start Date End Date Alli Nguyen MD [address] [place] [address] PCP - General 03/01/15 documented as of this encounter
--- OUTSIDE RECORDS SUMMARY | 2024-04-15 14:22 | XMS_ITS | Encounter Summary ---
Author Organization [facility] Address [address] [place] [address] Care Team Providers Care Hydraulic Plumber Helper Name Role Phone Alli Nguyen MD Primary Care Provider Encounter Details Date Type Department Care Team (Late st Contact Info) Description 11/09/2021 Lab Requisition [facility] Pathology & Laboratory Medicine - [address] [address] Bhavya Mcnulty MD [facility] [place], [place] [address] Encounter for other general examination Social History [...] explore management options, if applicable. 11/12/2021 10:55 [facility] Final Diagnosis A. CERVIX, 6 O'CLOCK, BIOPSY: - High grade squamous intraepithelial lesion (DON 2). B. CERVIX, 11 O'CLOCK, BIOPSY: - High grade squamous intraepithelial lesion (DON 2). C. ENDOCERVIX, CURETTAGE: - Benign endocervical glands. 11/12/2021 10:55 [facility] Diagnosis Comment Immunoperoxidase stains were performed on section B to confirm the morphologic impression of high grade squamous intraepithelial lesion. Deeper levels of C have been examined. ANTIBODY(CLONE)(BL OCK):RESULT P16 (E6H4TM, [place]) (B1): strong block-like nuclear and cytoplasmic staining [...] performance characteristics have been determined by [facility] and/or by the referring laboratory. The positive [...] high complexity clinical laboratory testing. 11/12/2021 10:55 [facility] Attestation There was significant resident/fellow involvement in the diagnostic evaluation of this case. By the signature below, the attending physician certifies that they have personally conducted a gross and/or microscopic examination of the described specimens and rendered or confirmed the above diagnosis. 11/12/2021 10:55 [facility] at 1055 Clinical History HGSIL 11/12/2021 10:55 [facility] Gross Description A. [...] YIN RODRIGES(ASCP) 11/10/2021 15:05 11/12/2021 10:55 EDT [facility] Resident/Arian w: Eileen Canchola MD 11/12/2021 10:55 EDT [facility] Performing Lab [facility] 10:55 EDT [facility] Scanned Images 11/12/2021 10:55 EDT [facility] Tissue ENTIRE ENDOCERVIX / Unknown 11/08/2021 11:45 EDT 11/09/2021 9:07 EDT Tissue specimen (specimen) CERVIX UTERI STRUCTURE / Unknown 11/08/2021 11:45 EDT 11/09/2021 9:07 EDT Tissue specimen (specimen) ENDOCERVICAL STRUCTURE / Unknown 11/08/2021 11:45 EDT 11/09/2021 9:07 EDT us Bhavya Mcnulty MD PATHOLOGY ORDERABLES Final Res ult [facility] [address] [place] [address] documented in this encounter Visit Diagnoses Diagnosis Encounter for other general examination documented in this encounter Care Teams Hydraulic Plumber Helper Relationship Specialty Start Date End Date Alli Nguyen MD [address] [place] [address] PCP - General 03/01/15 documented as of this encounter
--- OUTSIDE RECORDS SUMMARY | 2024-04-15 14:22 | XMS_ITS | Encounter Summary ---
Author Organization [facility] Address [address] [place] [address] Care Team Providers Care Elementary Education Tutor Name Role Phone Alli Nguyen MD Primary Care Provider Encounter Details Date Type Department Care Team (Late st Contact Info) Description 02/16/2023 Lab Requisition [facility] Pathology & Laboratory Medicine - [address] [address] Bhavya Mcnulty MD [facility] [place] [address] Encounter for other general examination Social History [...] Risk types, PCR Negative Negative 02/23/2023 16:39 [facility] Comment:No E6 or E7 mRNA is detected from HPV types 16,18,31,33,35,39,45,51,52,56,58,59,66, and 68 by outsole skiver mediated amplification. Pap Test CERVIX UTERI STRUCTURE / Unknown 02/11/2023 10:40 EDT 02/23/2023 8:26 EST us Bhavya Mcnulty MD MICROBIOLOGY - GENERAL ORDERAB LES Final Result [facility] [address] [place] [address] * PAP TEST (02/11/2023 10:40 EDT) Specimens A. Cervix and/or Endocervix , ThinPrep Imaging System with Manual Evaluation 02/23/2023 16:39 [facility] Specimen Adequacy Satisfactory for Evaluation - transformation zone component present Scant squamous epithelial component due to excess blood. 02/23/2023 16:39 [facility] General Categorization Negative for intraepithelial lesion or malignancy 02/23/2023 16:39 [facility] Descriptive Diagnosis Reactive cellular changes associated with inflammation present (includes repair). 02/23/2023 16:39 [facility] Educational Comments An additional slide was prepared and evaluated. 02/23/2023 16:39 [facility] Attestation By the signature below, the attending physician certifies that they have personally conducted a gross and/or microscopic examination of the described specimens and rendered or confirmed the above diagnosis. 02/23/2023 16:39 [facility] at 1639 Clinical History See below 02/24/20 16:39 [facility] HPV The result for the Human Papillomavirus (HPV) Detection-High Risk Types is Negative. No E6 or E7 mRNA is detected from HPV types 16,18,31,33,35,39 ,45,51,52,56,58,5 9,66, and 68 by outsole skiver mediated amplification.Meli ting was performed on specimen [id number] and was resulted on 02/23/2023 1639 EST by STEPHENIE, LAB INSTRUMENT RESULTS IN 02/23/2023 16:39 EST [facility] Performing Lab [facility] 02/23/2023 16:39 EST [facility] Scanned Images 02/23/2023 16:39 EST [facility] Pap Test CERVIX UTERI STRUCTURE / Unknown 02/11/2023 10:40 EDT 02/16/2023 10:10 EDT us Bhavya Mcnulty MD PATHOLOGY ORDERABLES Final Res ult [facility] [address] [place] [address] documented in this encounter Visit Diagnoses Diagnosis Encounter for other general examination documented in this encounter Care Teams Elementary Education Tutor Relationship Specialty Start Date End Date Alli Nguyen MD [address] [place] [address] PCP - General 03/01/15 documented as of this encounter
--- OUTSIDE RECORDS SUMMARY | 2024-04-15 14:22 | XMS_ITS | Encounter Summary ---
Author Organization [facility] Address [address] [place] [address] Care Team Providers Care Retail Analytics Manager Name Role Phone Alli Nguyen MD Primary Care Provider Encounter Details Date Type Department Care Team (Late st Contact Info) Description 10/11/2021 Lab Requisition [facility] Pathology & Laboratory Medicine - [address] [address] Bhavya Mcnulty MD [facility] [place] [address] Encounter for other general examination Social History [...] System with Manual Evaluation 10/15/2021 16:[address] [facility] Specimen Adequacy Satisfactory for Evaluation - transformation zone component present [facility] General Categorization Epithelial Cell Abnormality 10/15/2021 16:41 [facility] Descriptive Diagnosis Squamous Cell Abnormality - High grade squamous intraepithelial lesion (HSIL). 10/15/2021 16:41 [facility] Educational Comments [employer] recommends following ASCCP's 2012 Updated Consensus Guidelines for the Management of Abnormal Cervical Cancer Screening Tests and Cancer Precursors (JLGTD, 2013; 17(5):S1-S27). Consensus guidelines are available online at www.asccp.org. 10/15/2021 16:41 [facility] Attestation By the signature below, the attending physician certifies that they have personally conducted a gross and/or microscopic examination of the described specimens and rendered or confirmed the above diagnosis. 10/15/2021 16:41 [facility] at 1641 Clinical History See below 10/16/19 16:41 [facility] Performing Lab [employer] [facility] 10/15/2021 16:41 [facility] Scanned Images 10/15/2021 16:41 [facility] Papanicolaou smear specimen (specimen) CERVIX UTERI STRUCTURE / Unknown 10/10/2021 10:30 EDT 10/11/2021 13:57 EDT us Bhavya Mcnulty MD PATHOLOGY ORDERABLES Final Res ult [facility] [address] [place] [address] documented in this encounter Visit Diagnoses Diagnosis Encounter for other general examination documented in this encounter Care Teams Retail Analytics Manager Relationship Specialty Start Date End Date Alli Nguyen MD [address] [place], [place] [id number] PCP - General 03/01/15 documented as of this encounter
--- OUTSIDE RECORDS SUMMARY | 2024-04-15 14:23 | XMS_ITS | Encounter Summary ---
[place] [address] Care Team Providers Care Adhesive Bonding Machine Operator Name Role Phone Soni Wade MD Primary Care Provider [phone] Encounter Details Date Type Department Care Team (Late st Contact Info) Description 04/04/2024 Telephone [place] [address] Percy Mariee Social History Tobacco Use Types Packs/Day Years Used Date Smoking Tobacco: Never Assessed Sex and Gender Information Value Date Recorded Sex Assigned at Not on file Gender Identity Not on file Sexual Orientation Not on file documented as of this encounter Miscellaneous Notes * Telephone Encounter - Percy Mariee - 04/15/2024 1:17 PM EST Inbound/Outbound: Outbound Spoke to Patient/Left Message: Left message Notes: Outbound call to patient to schedule motility lab testing from referral. Left message askingfor callback to schedule. Lvm 2nd attempt. Left message with Rosalind (still no DPR on file) Return calls can be handled by: [facility] Sand Molder * Telephone Encounter - Percy Mariee - 04/04/2024 1:42 PM EST Inbound/Outbound: Outbound Spoke to Patient/Left Message: Left message with mom Rosalind (no dpr) Notes: Outbound call to patient to schedule motility lab testing from referral. Left message with mom Rosalind (no dpr) asking for callback to schedule. Return calls can be handled by: [facility] Sand Molder documented in this encounter Plan of Treatment Scheduled Procedures Name Priority Associated Diagnoses Date/Ti me EGD, UPPER GI ENDOSCOPY (WRV U 2.09) Bloating Chronic abdominal pain Heartburn Substernal chest pain Chronic nausea Unintentional weight loss Intractable migraine with aura without status migrainosus documented as of this encounter Visit Diagnoses Not on filedocumented in this encounter Care Teams Adhesive Bonding Machine Operator Relationship Specialty Start Date End Date Soni Wade MD [address] [place] [address] PCP - General Family Medicine 01/26/24 documented as of this encounter
--- OUTSIDE RECORDS SUMMARY | 2024-04-15 14:23 | XMS_ITS | Encounter Summary ---
[place] [address] Care Team Providers Care Marine Steamfitter Name Role Phone Alli Nguyen MD Primary Care Provider [phone] Encounter Details Date Type Department Care Team (Latest Contact Info) Description 09/23/2010 2:10 PM EDT - 09/23/2010 11:59 PM EDT Hospital [place] [address] Ganglion cyst of flexor tendon sheath Social [...] mLs documented in this encounter Care Teams Marine Steamfitter Relationship Specialty Start Date End Date Alli Nguyen MD [address] [place] [address] PCP - General 07/31/10 01/25/24 documented as of this encounter
--- OUTSIDE RECORDS SUMMARY | 2024-04-15 14:23 | XMS_ITS | Encounter Summary ---
[place] [address] Care Team Providers Care Computer Numeric Control Setter Name Role Phone Alli Nguyen MD Primary Care Provider + [phone] Reason for Visit * Reason Comments ADHD neuropsychological e valuation Encounter Details Date Type Department Care Team (Latest Contact Info) Description 02/20/2011 9:00 AM EDT Office Visit Psychiatry [place] [address] Vincent Casarez, PhD ADHD (attention deficit hyperactivity disorder) (Primary Dx) Social History Tobacco Use Types Packs/Day Years Used Date Smoking Tobacco: Never Assessed Sex and Gender Information Value Date Recorded Sex Assigned at Not on file Gender Identity Not on file Sexual Orientation Not on file documented as of this encounter Progress Notes * Vincent Casarez, PhD - 04/25/2011 3:33 PM EST Name: Meron Artis ID#: [id number] Date of : 1995 Age: 15 -7 School: [employer] Current Grade: 12 Date of Evaluation: [...] in the 12th grade at the [employer]. She is supported with an IEP and [...] Developmental/Behavioral Medicine Evaluation by Joshua Bradley M.D. ([facility]), which detailed her [...] Further, adaptive behavior was measured using the Quincy-II Adaptive Behavior Scales completed with the parent/caregiver. Results were reported as overall Adaptive Behavior Composite =59 (Communication=64; Daily Living Skills=57; Socialization Skills=60; Motor Icgelu=088). TESTS AND PROCEDURES ADMINISTERED General: Clinical Interview [...] Test (CPT) Oral Language: Verbal Fluency (D-KEFS) Hickman Naming Test (BNT) Memory: [place] Verbal Learning [...] without difficulty and utilized an appropriate pencil front elevator operator. Attention and concentration was generally adequate throughout [...] (GEC) as well as the CARMEN and [place] were significantly elevated. Specific scale elevations were [...] and Stereotyped Patterns of Behavior. Adaptive Functioning: Damari??s grandmother also completed the Adaptive Behavior Assessment [...] high school. A program such as [employer] may be able to provide her with [...] Psychiatric Clinic ([facility]) in Child Development at [facility]. Poor sleep quality may [...] Bruner Psy.D. Post-Doctoral Fellow Tina Casarez, Ph.D., Clothes Marker Neuropsychological Services Armed Custom Protection Officer [place] Licensed Psychologist, #169 [place] Psychologist Doctorate, #181 This report was prepared by Tammi Bruner Psy.D., Postdoctoral Fellow in Pediatric Neuropsychology under the supervision of Mateo Casarez, Ph.D. cc: Rosalind Artis (Mother) [address] [facility] [address] [place] [address] Dr. Maynor Nguyen [id number] [place] [address] Casarez???s file DATA TABLES DESCRIPTOR [...] hyperactivity documented in this encounter Care Teams Computer Numeric Control Setter Relationship Specialty Start Date End Date Alli Nguyen MD [address] [place] [address] PCP - General 07/31/10 01/25/24 documented as of this encounter
--- OUTSIDE RECORDS SUMMARY | 2024-04-15 14:23 | XMS_ITS | Encounter Summary ---
[place] [address] Care Team Providers Care Surgical Processor Name Role Phone Alli Nguyen MD Primary Care Provider Encounter Details Date Type Department Care Team (Late st Contact Info) Description 10/25/2010 [place] [id number] Marina Winston RN Social History Tobacco Use [...] on filedocumented in this encounter Care Teams Surgical Processor Relationship Specialty Start Date End Date Alli Nguyen MD [address] [place] [address] PCP - General 07/31/10 01/25/24 documented as of this encounter
--- OUTSIDE RECORDS SUMMARY | 2024-04-15 14:23 | XMS_ITS | Encounter Summary ---
[place] [address] Care Team Providers Care Animation Artist Name Role Phone Alli Nguyen MD Primary Care Provider + [phone] Reason for Visit * Reason Onset Date Comments No Show 09/21/2018 behavior contrac t Encounter Details Date Type Department Care Team (Late st Contact Info) Description 09/21/2018 [place] [phone] Phi Sharma MD No Show (behavior contract) Social History Tobacco [...] on filedocumented in this encounter Care Teams Animation Artist Relationship Specialty Start Date End Date Alli Nguyen MD [address] [place] [address] PCP - General 07/31/10 01/25/24 documented as of this encounter
--- OUTSIDE RECORDS SUMMARY | 2024-04-15 14:23 | XMS_ITS | Encounter Summary ---
[place] [address] Care Team Providers Care Conductor Pullman Name Role Phone Soni Wade MD Primary Care Provider [phone] Encounter Details Date Type Department Care Team (Late st Contact Info) Description 02/10/2024 Tele[place] [address] Percy Mariee Social History Tobacco [...] on filedocumented in this encounter Care Teams Conductor Pullman Relationship Specialty Start Date End Date Soni Wade MD [address] [place] [address] PCP - General Family Medicine 01/26/24 documented as of this encounter
--- OUTSIDE RECORDS SUMMARY | 2024-04-15 14:23 | XMS_ITS | Encounter Summary ---
Author Organization [facility] [place] [address] Care Team Providers Care Registrar Assistant Name Role Phone Alli Nguyen MD Primary Care Provider + [phone] Reason for Visit * Reason Comments Left Finger Pain Encounter Details Date Type Department Care Team (Late st Contact Info) Description 09/23/2010 3:30 PM EDT [place] [address] CLINIC, Shimon Evans MD [facility] [place] [address] Scott Galan PA [facility] [place] [address] Ganglion cyst of flexor tendon sheath (Primary [...] 09/23/2010 4:23 PM EDT Subjective: Patient ID: Merno Artis is a 15 y.o. female. HPI [...] Scheduled Procedures Name Priority Associated Diagnoses Date/Ti tn EGD, UPPER GI ENDOSCOPY (WRV U 2.09) Bloating Chronic abdominal pain Heartburn Substernal chest pain Chronic nausea Unintentional weight loss Intractable migraine with aura without status migrainosus documented as of this encounter Visit Diagnoses Diagnosis Ganglion cyst of flexor tendon sheath- Primary Ganglion of tendon sheath documented in this encounter Care Teams Registrar Assistant Relationship Specialty Start Date End Date Alli Nguyen MD [address] [place] [address] PCP - General 07/31/10 01/25/24 documented as of this encounter
--- OUTSIDE RECORDS SUMMARY | 2024-04-15 14:23 | XMS_ITS | Encounter Summary ---
Author Organization [facility] [place] [address] Care Team Providers Care Global Marketing Intern Name Role Phone Alli Nguyen MD Primary Care Provider + [phone] Reason for Visit * Reason Onset Date Comments Finger Pain 08/02/2010 lump on finger Encounter Details Date Type Department Care Team (Late st Contact Info) Description 08/02/2010 [place] [address] Shimon Parkinson MD [facility] [place] [address] Finger Pain (lump on finger) Social History [...] limb documented in this encounter Care Teams Global Marketing Intern Relationship Specialty Start Date End Date Alli Nguyen MD [address] [place] [address] PCP - General 07/31/10 01/25/24 documented as of this encounter
--- OUTSIDE RECORDS SUMMARY | 2024-04-15 14:23 | XMS_ITS | Encounter Summary ---
Author Organization [facility] [place] [address] Care Team Providers Care Food Service Manager Name Role Phone Alli Nguyen MD Primary Care Provider + [phone] Reason for Visit * Reason Comments Left Finger Pain Left index finger ma ss Encounter Details Date Type Department Care Team (Late st Contact Info) Description 08/19/2010 1:00 PM EDT Office [place] [address] Johnathan Parkinson MD [facility] [place] [address] Claudia Mullins MD Ganglion cyst of flexor tendon sheath (Primary [...] Notes * Miscellaneous - Lamin Salinas - 08/23/2010 8:56 AM EDT documented in this encounter Plan of Treatment Scheduled Procedures Name Priority Associated Diagnoses Date/Ti ky EGD, UPPER GI ENDOSCOPY (WRV U 2.09) Bloating Chronic abdominal pain Heartburn Substernal chest pain Chronic nausea Unintentional weight loss Intractable migraine with aura without status migrainosus documented as of this encounter Visit Diagnoses Diagnosis Ganglion cyst of flexor tendon sheath- Primary Ganglion of tendon sheath Finger pain, left Pain in limb documented in this encounter Care Teams Food Service Manager Relationship Specialty Start Date End Date Alli Nguyen MD [address] [place] [address] PCP - General 07/31/10 01/25/24 documented as of this encounter
--- OUTSIDE RECORDS SUMMARY | 2024-04-15 14:23 | XMS_ITS | Encounter Summary ---
[place] [address] Care Team Providers Care Varnish Maker Helper Name Role Phone Soni Wade MD Primary Care Provider [phone] Reason for Referral * Consultation (Routine) - Authorized Specialty Diagnoses / Procedures Referred By Andreia t Referred To Contact Gastroenterology Diagnoses Abdominal distension (gaseous) ABDOMINAL BLOATING Soni Wade MD [address] [place] [address] [facility] [place] [address] Referral ID Status Reason Start Date Expiration Date Visits Requested Visits Authorized [id number] Authorized Consult, Test & Treat PCP Updated and/or Approved 01/07/2024 01/06/2025 6 6 Encounter Details Date Type Department Care Team (Latest Contact Info) Description 01/26/2024 Transcribe Orders eDH Incoming Referrals [phone] Soni Wade MD [address] [place] [address] Abdominal distension (gaseous) Social History [...] pain documented in this encounter Care Teams Varnish Maker Helper Relationship Specialty Start Date End Date Soni Wade MD [address] [place] [address] PCP - General Family Medicine 01/26/24 documented as of this encounter
--- OUTSIDE RECORDS SUMMARY | 2024-04-15 14:23 | XMS_ITS | Encounter Summary ---
[place] [address] Care Team Providers Care Respiratory Assistant Name Role Phone Soni Wade MD Primary Care Provider Reason for Referral * Diagnostic Test (Routine) - Closed Specialty Diagnoses / Procedures Referred By Andreia reddy Referred To Contact Gastroenterology Diagnoses Bloating Chronic abdominal pain Heartburn Substernal chest pain Chronic nausea Unintentional weight loss Intractable migraine with aura without status migrainosus HBT - lactulose - bloating Procedures Breath Hydrogen Test Shelby Rogers APRN [facility] [place] [address] [facility] [address] [place] [id number] Referral ID Status Reason Start Date Expiration Date V isits Requested Visits Authorized [id number] Closed Consult, Test & Treat 02/08/2024 02/07/2025 1 1 Reason for Visit * Consultation (Routine) - Authorized Specialty Diagnoses / Procedures Referred By Andreia reddy Referred To Contact Gastroenterology Diagnoses Abdominal distension (gaseous) ABDOMINAL BLOATING Soni Wade MD [address] [place] [address] [facility] [address] [place] [phone] Referral ID Status Reason Start Date Expiration Date Visits Requested Visits Authorized [id number] Authorized Consult, Test & Treat PCP Updated and/or Approved 01/07/2024 01/06/2025 6 6 Encounter Details Date Type Department Care Team (Latest Contact Info) Description 02/08/2024 9:40 AM EDT TH Visit (TeleHealth) [place] [address] Shelby Rogers APRN [facility] [place] [address] Bloating; Chronic abdominal pain; Heartburn; Substernal chest [...] EGD, UPPER GI ENDOSCOPY (WRVU 2.09) [facility] IgA IgG Tissue Transglutaminase, IgA Calprotectin, Stool Breath Hydrogen Test For procedures that have been ordered please call :Endoscopy Scheduling at [phone] For blood work or stool studies ordered, please go to or any [facility] affiliated lab. As the results come back from your various tests, we will only contact you for results which a change in your treatment plan. Normal results that are visible by [facility] will not receive additional communication. Otherwise, you will receive these results from our team either at a follow-up visit, phone call, letter, or through eDH, which will be determined by your provider. You will likely see the results through your [facility] portal several days before you get additional [...] by completing this brief 9 question survey: [email or web address] Sincerely, Shelby Rogers APRN Department of Gastroenterology and Hepatology [facility] documented in this encounter Progress Notes [...] medications by another provider outside of the [facility] for this symptom? Yes What was the name of the medication? Famotidine 40mg How long did you take it? Not much Have you been to the emergency room or urgent care for your symptom(s)? No Have you had surgery outside of the [facility] for your symptom(s)? No What testing have [...] of this triage visit. Shelby Rogers APRN [facility] [place] [address] documented in this encounter Plan of Treatment [...] aura without status migrainosus Ordered: 02/08/2024 [facility] Routine Bloating Chronic abdominal pain Heartburn [...] migrainosus documented in this encounter Care Teams Respiratory Assistant Relationship Specialty Start Date End Date Soni Wade MD [address] [place] [address] PCP - General Family Medicine 01/26/24 documented as of this encounter
[2024-04-15 15:09] LABS: Iron 66 ug/dL (50-170); Total Iron Binding Capacity 273 ug/dL (250-450); Transferrin Sat 24 % (15-50)
[2024-04-15 15:35] LABS: Ferritin 80 ng/mL (8-252); Magnesium 1.9 mg/dL (1.8-2.4); Vitamin B12 272 pg/mL (193-986)
== END 2024-04-15 14:19 | disposition home or self-care (01) ==
LOC: NCHCN 14:18
PROVIDERS: PCP Family Medicine; Visit Provider Family Medicine
DX: G62.9 Polyneuropathy, unspecified (principal)
CPT/HCPCS: 82607; 82728; 83540; 83550; 83735

== ENCOUNTER 2024-05-26 10:36 | Outpatient (REF) | payer MEDICAID, SELFPAY ==
--- NOTE | 2024-05-26 10:15 | PAPFT_PTH ---
PATIENT: Meron Artis LOC: ÁNGEL U#:[id number] AGE/SX: 28/F ROOM: RE05/26/[address]: Bhavya Pacheco : 1995 BED: DIS: 05/26/2024 SPEC #: [id number] RECD: 05/26/24 13:10 STATUS: STACY RECindy #: [id number] MARYCHUY: 05/26/24 10:[address]: Bhavya Pacheco DEPT: [facility] Cytology RECD BY: Sameera Montague ENTERED: 05/26/24 13:10 SP TYPE: PAPFT OTHR DR: Soni Wade Tissues: 1 - CX/ENDOCX FOR PAP SMEARS Procedures: PAP THIN PREP/UVM Screening HPV DNA PROBE Comments: [id number] (HPV 16 & 18/45)
== END 2024-05-26 10:37 | disposition home or self-care (01) ==
LOC: LBN 10:36
PROVIDERS: PCP Family Medicine; Visit Provider Obstetrics & Gynecology Gynecology
DX: N89.8 Other specified noninflammatory disorders of vagina (principal); B96.89 Other specified bacterial agents as the cause of diseases classified elsewhere
CPT/HCPCS: 88142; 87480; 87510; 87624; 87660

== ENCOUNTER 2024-07-07 01:20 | Outpatient (CLI) | payer MEDICAID, SELFPAY ==
--- NOTE | 2024-07-07 | DI.RAD_ITS ---
Exam(s) XR SACROILIAC JOINTS EXAM: XR SACROILIAC JOINTS CLINICAL HISTORY: Pain in lt SI joint, M53.3-sacrococcygeal disorders,tenderness over L SI jt. TECHNIQUE: 2D digital imaging was performed. COMPARISON: No exams were available for comparison FINDINGS: Bones: No fracture is present. No bony destructive lesion is seen. Alignment is satisfactory. SI Joint: No fusion, erosions or sclerosis is seen. Soft Tissue: Normal. IMPRESSION: Normal radiographs of the SI Joints. DATA REPOSITORY: RADIATION DOSE DELIVERED:
== END 2024-07-07 01:40 ==
LOC: DI 01:20
PROVIDERS: PCP Family Medicine; Visit Provider Family Medicine
DX: M53.3 Sacrococcygeal disorders, not elsewhere classified (principal)
CPT/HCPCS: 72202

== ENCOUNTER 2024-07-26 08:04 | Day surgery (SDC) | payer MEDICAID, SELFPAY ==
[2024-07-26 08:35] VITALS: BP 101/75; PULSE 84; RESP 20; TEMP 36.4; O2SAT 100
[2024-07-26] MEDS: Lactated Ringers 1,000 ML 80 ML IV (08:53)
--- NOTE | 2024-07-26 09:05 | W.ANESPRE ---
General Info Date of Service Date Performed: 07/26/24 Height: 5 ft 3 in Weight: 49.4 kg Body Mass Index (BMI): 19.3 Surgical Procedure: Operation Date: 07/26/24 09:50 Proposed Procedure Side Surgeon p Colonoscopy/Gastroscopy Richard Dave MD Meds Allergies and Home Medications Allergies Allergy/AdvReac Type Severity Reaction Status Date / Time latex Allergy skin Verified 07/26/24 08:39 issues (blisters, rash), agitation lemon AdvReac Unknown Verified 07/26/24 08:39 Home Medication ?Medication ?Instructions ?Recorded albuterol sulfate 90 mcg/actuation 2 puff inhalation Q4H PRN 07/10/17 aerosol inhaler (Ventolin HFA) inhalational spacing device 07/10/17 (OptiChamber Advantage spacer) naproxen 375 mg tablet,delayed 375 mg PO PRN #30 tab-caps 12/10/17 release multivitamin with minerals-folic 2 tab PO DAILY 12/18/21 acid 200 mcg chewable tablet (Multivitamin Gummies) cyclobenzaprine 5 mg tablet 5 mg PO QHS 05/26/24 hydroxyzine HCl 25 mg tablet 25 mg PO QHS 05/26/24 medroxyprogesterone 150 mg/mL 150 mg IM Q12W #1 mL 05/26/24 intramuscular syringe (Depo-Provera) mirtazapine 7.5 mg tablet 7.5 mg PO DAILY 05/26/24 pantoprazole 40 mg tablet,delayed 40 mg PO DAILY 05/26/24 release famotidine 40 mg tablet 40 mg PO DAILY 07/12/24 sertraline 50 mg tablet (Zoloft) 50 mg PO DAILY 07/12/24 lisdexamfetamine 50 mg capsule 50 mg PO DAILY 07/13/24 (Vyvanse) trazodone 50 mg tablet 50 mg PO DAILY 07/13/24 bisacodyl 5 mg tablet,delayed 5 mg PO ONCE Colonoscopy Bowel 07/22/24 release Prep #4 tabs polyethylene glycol 3350 17 238 g PO ONCE #238 grams 07/22/24 gram/dose oral powder Current Visit Medications: Current Medications Generic Name Dose Route Start Last Admin Trade Name Freq PRN Reason Stop Dose Admin Ringer's Solution 1,000 mls @ 80 mls/hr 07/26/24 06:00 07/26/24 08:53 IV 07/26/24 23:59 80 mls/hr INFUSION ASHANTI Administration IV Miscellaneous Supplies 1 each 07/26/24 06:00 Iv Access IV 07/26/24 23:59 DIRECTED ASHANTI Sodium Chloride 0 ml 07/26/24 06:00 Normal Saline Flush 10 Ml Syr IV 07/26/24 23:59 PRN PRN Sodium Chloride 0 ml 07/26/24 06:00 Normal Saline 10 Ml Vial IJ 07/26/24 23:59 DIRECTED PRN Sterile Water 0 ml 07/26/24 06:00 Water,Injection,Sterile 10 Ml Vial IJ 07/26/24 23:59 DIRECTED PRN PFSH Active Problems Active Problems: Problem Status Onset Code Abdominal pain Acute R10.9 Unintended weight loss Acute R63.4 Migraine Chronic G43.909 Neuropathy Acute G62.9 Sacroiliac joint pain Acute M53.3 Insomnia Acute G47.00 Excessive thirst Acute R63.1 Pain in finger Acute M79.646 Heartburn Acute R12 Small intestinal bacterial overgrowth Acute K63.8219 Pain of left sacroiliac joint Acute M53.3 UTI (urinary tract infection) Acute N39.0 Bloating Acute R14.0 Excessive gas Acute R14.3 Epigastric pain Acute R10.13 BV (bacterial vaginosis) Acute Encounter for Depo-Provera contraception Acute 05/11/15 Z30.42 Abnormal uterine bleeding (AUB) Acute N93.9 S/P D&C (status post dilation and curettage) Acute Z98.890 Cervix abnormality Acute N88.9 Anxiety Acute 03/02/15 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 04/2015 Depo Provera Q3mo. Dysmenorrhea sx improved. Arthralgia ADHD (attention deficit hyperactivity disorder) Dysmenorrhea Initially given Mirena IUD 02/2015 which was not tolerated. 04/2015 Mirena removed and Depo Provera 150mg Q3mo 01/2018 stopped Depo. No BC at this time. Anxiety Tension headache Pervasive developmental disorder Surgical History Surgical History H/O LEEP 12/2021 History of bilateral salpingectomy 12/2021 Tobacco Smoking/Tobacco Use Status: Never Passive smoking exposure: No Alcohol Alcohol Intake: current Alcohol intake frequency: holidays/special occasions only Substance Use Substance use: Never Substance use type: does not use Prental History History 1 Para 0 Hx # Term Pregnancies Multiple births Hx # Pregnancies Ectopic pregnancies AB induced 1 Hx Number of Living Children AB spontaneous Vital Signs and Lab Results Vital Signs Most Recent Vital Signs in EMR: Most Recent Vital Signs Temp Pulse Resp BP Pulse Ox 36.4 C L 84 20 101/75 100 07/26/24 08:35 07/26/24 08:35 07/26/24 08:35 07/26/24 08:35 07/26/24 08:35 Lab Results Blood Type / Crossmatch: No Data to Display Complete Blood Count: No Data to Display Complete Metabolic Panel: No Data to Display Liver Function Panel: No Data to Display Coagulation Panel: No Data to Display Cardiac Panel: No Data to Display Arterial Blood Gas: No Data to Display Venous Blood Gas: No Data to Display Pancreas Panel: No Data to Display Thyroid Panel: No Data to Display Infectious Disease: No Data to Display Blood Cultures: No Data to Display Toxicology Panel: No Data to Display Panel: No Data to Display Anesthesia Assessment and Plan Anesthesia History Personal History: No History of Anesthesia Complications Family History: No Family History of Anesthesia Complications Exercise Tolerance Exercise Tolerance: Metabolic Equivalents>4 Pertinent Negatives Pertinent Negatives: No Symptoms of GERD Cardiac & Pulmonary Exam Cardiac Exam: Normal S1/S2 Heart Sounds Pulmonary Exam: Clear Bilateral Breath Sounds Implantable Cardiac Device Does patient have a Pacemaker or an ICD?: No Airway Exam Known Difficult Airway: No Mallampati Class: 1 Mouth Opening: Normal (> 3cm) Thyromental Distance: Greater than 3 cm Neck Range of Motion: Full ROM Neck Circumference: Normal Teeth Condition: Normal Dentition ASA Classification ASA Score: ASA 3 Emergency Case?: No NPO Status NPO Status: NPO Clears >2 hours, Solids >8 hours Status Status: Negative HCG Anesthesia Plan Resuscitation Status: Full Code Anesthesia Technique: General Anesthesia Airway Planned: Natural Airway Monitors Used: Standard Monitors
[2024-07-26 09:08] VITALS: BMI 19.3
--- NOTE | 2024-07-26 09:50 | STOM_PTH ---
PATIENT: Meron Artis LOC: [facility] U#:[id number] AGE/SX: 29/F ROOM: RE07/26/[address]: Richard Dave : 1995 BED: DIS: 07/26/2024 SPEC #: [id number] RECD: 07/26/24 12:51 STATUS: [place] #: [id number] MARYCHUY: 07/26/24 09:[address]: Richard Dave DEPT: Surgical Specimen RECD BY: Sameera Montague ENTERED: 07/26/24 12:53 SP TYPE: STOMACH OTHR DR: Soni Wade Tissues: 1 - BIOPSY BOWEL 2 - STOMACH BIOPSY 3 - STOMACH BIOPSY 4 - BIOPSY BOWEL Procedures: GROSS AND MICRO LEVEL 4 Comments: [id number]
[2024-07-26 10:24] VITALS: BP 109/65; PULSE 98; RESP 18; TEMP 36; O2SAT 100
--- NOTE | 2024-07-26 10:26 | W.PM.ENDDOP ---
Date of service: 07/26/24 Time of Service: 10:26 Endoscopy Report PROCEDURE DESCRIPTION: PROCEDURES PERFORMED: 1. EGD with biopsies PREOPERATIVE DIAGNOSIS: Abdominal pain POSTOPERATIVE DIAGNOSIS: Normal foregut SURGEON: Cinda Dave MD INDICATION FOR PROCEDURE: 29-year-old woman who reportedly has had cramping, episodic abdominal discomfort her entire life. There is question about possible celiac disease and/or peptic ulcer disease. FINDINGS: D2/D3/D4 = normal - multiple biopsies were taken (x 4) as distal as possible to rule out celiac disease. I suspect I may have been in proximal jejunum, for sure transverse(D3-D4) duodenum. D1/bulb = normal - no ulcers or inflammation Pylorus = normal Antrum = normal appearance, no ulcers, cold forceps biopsies were taken to rule out H. pylori routinely Body = normal appearance, biopsies taken with cold forceps technique routinely, also to rule out H. pylori Fundus = normal, no polyps Cardia = normal Hiatus = no hiatal hernia Distal esophagus = no inflammation, no esophagitis, no Bennett's, no stricture. I did not take biopsies because it appeared normal and she has no symptoms to suggest esophagus problems. Mid esophagus = normal Proximal esophagus/hypopharynx/vocal cords = normal SURVEILLANCE-INTERVAL/FOLLOW-UP: Follow-up with PCP and/your GI doctors, no surveillance necessary Specimens: Yes EBL: Minimal COMPLICATIONS: None Procedure in detail: The patient gave written consent and was in agreement with the indications, the potential risks as well as the benefits of the procedure. The patient was taken to the endoscopy suite and laid on their left side. Anesthesia was given which was tolerated well. We performed a timeout and we are in agreement I started the procedure. A well-lubricated endoscope was gently and carefully advanced down the esophagus, into the stomach the scope was and through the pylorus into the distal duodenum, possibly proximal jejunum. The scope was then slowly withdrawn with the above-noted findings/interventions. The patient tolerated the procedure well and was then turned for colonoscopy (see separate procedure note).
--- NOTE | 2024-07-26 10:29 | W.COLOREPORT ---
Date of service: 07/26/24 Time of Service: 10:30 Colonoscopy Report Procedure Description: Procedures performed: 1. Colonoscopy with cold forceps biopsies Preoperative diagnosis: Abdominal pain Postoperative diagnosis: Normal terminal ileum, normal colon, normal rectum Surgeon: Cinda Dave MD Indication for procedure: The patient is a 29-year-old woman with cramping abdominal discomfort. Entire life. No prior colonoscopy. No bowel habit problems. Findings: Normal terminal ileum. Biopsies taken x 4 to rule out IBD (not suspected). Grossly normal colon. No diverticular disease. No polyps. No inflammation. The rectum is normal without hemorrhoids or visible perianal disease. Surveillance interval/follow-up: A routine/usual/typical screening colonoscopy should be recommended at the age of 43. She can consider GI follow-up for her chronic symptoms. Cross-sectional imaging has also been recommended for her but not done as of this procedure. Specimens: yes Estimated blood loss: Minimal Complications: None Quality of prep: Excellent Procedure in detail: The patient gave written consent and was in agreement with the indications, the potential risks as well as the benefits of the procedure. She was turned from upper endoscopy (see separate procedure note) and kept in the same position while we continued anesthesia and then I started the colonoscopy portion of the procedure. Digital rectal and visual examination was performed and grossly within normal limits. No fistula disease to suggest IBD and no external hemorrhoid disease. A well-lubricated flexible colonoscope was then introduced and passed without any notable difficulty all the way to the cecum identified by the ileocecal valve and the appendiceal orifice. The terminal ileum was deeply intubated and looked normal visually for at least 10-15 cm. I took biopsies with cold forceps x 4 in this location routinely to rule out IBD (despite normal appearance). The scope was then slowly withdrawn with the above-noted findings. I did not take biopsies of the colon lining because it looked completely normal and she does not have any symptoms to suggest colitis. The patient tolerated the procedure well and was taken to the PACU in hemodynamically stable condition.
--- NOTE | 2024-07-26 10:30 | W.ANESPOSTOP ---
Postoperative Evaluation Date, Time and Location Date Performed: 07/26/24 Time Performed: 10:29 Patient Location: Day Surgery Unit Vital Signs Most Recent Imported Vital Signs: Most Recent Vital Signs Temp Pulse Resp BP Pulse Ox 36.0 C L 98 H 18 109/65 100 07/26/24 10:24 07/26/24 10:24 07/26/24 10:24 07/26/24 10:24 07/26/24 10:24 Pain Score Most Recent Pain Score: Most Recent Pain Score Pain Level 0 07/26/24 10:24 Assessment Mental Status: Arousable with meaningful communication Airway and Respiratory Function: Patent airway with normal (patient baseline) respiratory exam Cardiovascular Function: Hemodynamically Stable Hydration Status: Adequately Hydrated Nausea & Vomiting: No Nausea or Vomiting Pain: Pt. Denies Any Pain Peripheral Nerve Block: Patient did not receive a nerve block
--- NOTE | 2024-07-26 10:35 | W.PM.DSUDISC ---
Date of service: 07/26/24 Discharge Plan Disposition Patient Disposition: Home Condition: Good Discharge Details Attending Provider: Richard Dave Primary Care Provider: Soni Wade Home Meds and New Rx's Prescriptions: No Action hydroxyzine HCl 25 mg tablet 25 mg PO QHS mirtazapine 7.5 mg tablet 7.5 mg PO DAILY pantoprazole 40 mg tablet,delayed release (DR/EC) 40 mg PO DAILY cyclobenzaprine 5 mg tablet 5 mg PO QHS medroxyprogesterone [Depo-Provera] 150 mg/mL syringe 150 mg IM Q12W Qty: 1 4RF naproxen 375 MG tablet,delayed release (DR/EC) 375 mg PO PRN Qty: 30 1RF Rx Instructions: do not chew. swallow whole. famotidine 40 mg tablet 40 mg PO DAILY sertraline [Zoloft] 50 mg tablet 50 mg PO DAILY trazodone 50 mg tablet 50 mg PO DAILY lisdexamfetamine [Vyvanse] 50 mg capsule 50 mg PO DAILY bisacodyl 5 mg tablet,delayed release (DR/EC) 5 mg PO ONCE Qty: 4 0RF Rx Instructions: Per Colonoscopy bowel prep instructions polyethylene glycol 3350 17 gram/dose powder 238 g PO ONCE Qty: 238 0RF Rx Instructions: For Colonoscopy bowel prep, as directed by office albuterol sulfate [Ventolin HFA] 60 PUFF HFA aerosol inhaler 2 puff Inhalation Q4H PRN0RF (DME) OptiChamber Advantage 1 EACH spacer 1 ea Miscellaneous DIRECTED 0RF multivit with min-folic acid [Multivitamin Gummies] 200 mcg Tablet,Chewable 2 tab PO DAILY Discharge Instructions Additional Instructions: FINDINGS: Everything everywhere looked healthy and normal. This rules out many possible conditions. As we discussed, many biopsies were taken from many different locations in case a microscopic inflammatory condition is taking place in your body (such as Crohn's disease or celiac disease as a couple of examples). These biopsies will take at least a week or so to come back and we will call you with those results. I anticipate that these results are likely to be normal as well based off of how healthy your GI tract appears. However we may be surprised and we will wait for those results before discussing next steps. Following up with a GI specialist at [facility] [place] may be useful. You can discuss further with your PCP. Stand Alone Forms: Anesthesia Discharge Inst., Colonoscopy Post Instructions, Pete Varma (DSU) Activity:: Activity as Tolerated Diet:: As Tolerated
[2024-07-26 10:53] VITALS: BP 109/72; PULSE 79; RESP 16; TEMP 36.8; O2SAT 100
== END 2024-07-26 11:34 | disposition home or self-care (01) ==
LOC: SUR 08:04
PROVIDERS: PCP Family Medicine; Visit Provider Student in an Organized Health Care Education/Training Program
PROC: (CPT 45380; principal; 2024-07-26 09:45)
DX: R10.9 Unspecified abdominal pain (principal)
CPT/HCPCS: 45380; 43239; 88305; J2003; J2704

== ENCOUNTER 2024-08-05 00:04 | Outpatient (CLI) | payer MEDICAID, SELFPAY ==
--- NOTE | 2024-08-05 06:30 | DI.CT_ITS ---
Exam(s) CT ABDOMEN PELVIS W EXAM: CT ABDOMEN PELVIS W CLINICAL HISTORY: ? malrotation,abnl wt loss,epigastric pain,bloating. TECHNIQUE: Imaging Protocol: Axial computed tomography images with coronal and sagittal reformatted images were created and reviewed CONTRAST MATERIAL: Intravenous: Omnipaque 350 Contrast volume:75 ml Oral: yes COMPARISON: No exams were available for comparison FINDINGS: ABDOMEN and PELVIS: Lung Bases: No acute findings. Liver: Normal density. No suspicious mass. Gallbladder and biliary tract: No radiodense calculus. No wall thickening or pericholecystic fluid. No biliary dilation. Pancreas: Normal density. No abnormal calcifications or inflammatory process. No evidence of mass. Spleen: Normal. Kidneys: Normal size, contour and axis. No radiodense stones. No obstructive uropathy. No suspicious masses seen. Adrenal glands: No masses seen. Vasculature: Abdominal aorta non-dilated. Soft tissues: Unremarkable. Bladder: No gross wall thickening. No calculi.No focal mass. Bowel: No obstruction. No bowel wall thickening. Appendix normal.No evidence of malrotation. Serena l quantity of stool. Peritoneal cavity: No ascites. No focal collection. No mesenteric inflammatory response. No free air . Bones: Unremarkable for age. Reproductive organs: Unremarkable. Lymph nodes: No pathologically enlarged lymph nodes. IMPRESSION:: No acute abnormality in the abdomen or pelvis. RADIATION DOSE DELIVERED: Total DLP DATA REPOSITORY: All CT scans at this facility are submitted to the National Radiology Data Registry (NRDR) Dose Index Registry (DIR) with the [employer] ([employer]). RADIATION OPTIMIZATION: All CT scans at this facility use at least one of these dose optimization te chniques: automated exposure control; mA and/or kV adjustment per patient size (includes targeted exa ms where dose is matched to clinical indication); or iterative reconstruction.
[2024-08-05] MEDS: Barium Sulfate 2% W/V-Creamy Vanilla Smoothie 450 ML BTL PO (07:11)
[2024-08-05] MEDS: Barium Sulfate 2% W/V-Berry Smoothie 450 ML BTL PO (07:11)
[2024-08-05] MEDS: Omnipaque 350 MG/ML 100 ML BTL 75 ML IJ (09:14)
[2024-08-05] MEDS: Normal Saline - Diluent 50 ML VIAL IJ (09:15)
== END 2024-08-05 00:24 ==
LOC: DI 00:05
PROVIDERS: PCP Family Medicine; Visit Provider Student in an Organized Health Care Education/Training Program
DX: R63.4 Abnormal weight loss (principal); R10.13 Epigastric pain; R14.0 Abdominal distension (gaseous)
CPT/HCPCS: 74177; J3490

== ENCOUNTER 2024-09-09 20:55 | Outpatient (REF) | payer MEDICAID, SELFPAY ==
[2024-09-09 15:45] LABS: Abs Immature Grans 0.02 10^3/uL (0.0-0.06); Absolute Basophil Count 0.03 10^3/uL (0.0-0.2); Absolute Eosinophil Count 0.05 10^3/uL (0.0-0.7); Absolute Lymphocyte Count 1.78 10^3/uL (1.2-3.4); Absolute Monocyte Count 0.56 10^3/uL (0.1-0.8); Absolute Neutrophil Count 3.96 10^3/uL (1.2-6.7); Basophils % 0.5 %; Eosinophils % 0.8 %; HGB 13.7 g/dL (11.2-15.7); Immature Grans % 0.3 %; Lymphocytes % 27.8 %; MCH 30.9 pg (27.0-33.0); MCHC 33.4 % (32.0-36.0); MCV 92 fL (80-95); MPV 9.6 fL (8.0-11.0); Monocytes % 8.8 %; Neutrophils % 61.8 %; Platelet Count 265 10^3/uL (130-400); RBC 4.44 10^6/uL (3.93-5.22); RDW 12.1 % (11.7-14.6); RDW-SD 41.2 fL
[2024-09-09 16:01] LABS: Iron 129 ug/dL (50-170); Total Iron Binding Capacity 315 ug/dL (250-450); Transferrin Sat 41 % (15-50)
[2024-09-09 16:30] LABS: ALT 13 U/L (14-59); AST 16 U/L (15-37); Albumin 4.1 g/dL (3.4-5.0); Alkaline Phosphatase 42 U/L (46-116); Anion Gap 6.1 mmol/L (3-11); BUN 8 mg/dL (7-18); Bilirubin, Total 0.6 mg/dL (0.2-1.0); CO2 29.9 mmol/L (21.0-32.0); CREATININE 0.7 mg/dL (0.55-1.02); Calcium 9.6 mg/dL (8.5-10.1); Chloride 105 mmol/L (98-107); Estimated GFR 118.51 (mL/min/1.73m2); Ferritin 36 ng/mL (8-252); Glucose 77 mg/dL (74-106); Potassium 4.2 mmol/L (3.5-5.1); Sodium 141 mmol/L (136-145); TSH (W/Ref FT4) 1.41 uIU/mL (0.36-3.74); Total Protein 7.6 g/dL (6.4-8.2); Vitamin B12 1636 pg/mL (193-986)
== END 2024-09-09 20:56 | disposition home or self-care (01) ==
LOC: NCHCN 20:55
PROVIDERS: PCP Family Medicine; Visit Provider Family Medicine
DX: R53.83 Other fatigue (principal); N93.9 Abnormal uterine and vaginal bleeding, unspecified; R39.9 Unspecified symptoms and signs involving the genitourinary system
CPT/HCPCS: 80053; 82607; 82728; 83540; 83550; 84443; 85025

== ENCOUNTER 2024-12-05 02:29 | Outpatient (CLI) | payer MEDICAID, SELFPAY ==
--- NOTE | 2024-12-05 06:30 | DI.MRI_ITS ---
Exam(s) MR BRAIN WO EXAM: MR BRAIN WO CLINICAL HISTORY: ? MS; Left leg numbness,r20.0 TECHNIQUE: Multiplanar multisequence MRI of the brain was performed. COMPARISON: No exams were available for comparison FINDINGS: CEREBRAL PARENCHYMA: There is no evidence of intracranial hemorrhage, mass effect, or shift of midline structures. There are no extra-axial fluid collections. Ventricles are not enlarged or shifted. There is no evidence of cerebellar tonsillar ectopia. There is no significant focal signal abnormality in the cerebellar hemispheres nor within the veda, midbrain, and thalami. There is no abnormal signal abnormality in the periventricular white matter. There is no significant focal signal abnormality evident on diffusion imaging to suggest acute ischemic event. PITUITARY GLAND: No mass nor parasellar abnormality. No obvious abnormality in the cavernous sinuses. FLOW VOIDS: The expected flow void are noted. No evidence of obvious aneurysm nor obvious vascular malformation. PARANASAL SINUSES: There is a tiny retention cyst in the lower aspect of medial wall the right maxillary sinus. No associated fluid level. The remainder of the visualized paranasal sinuses appear unremarkable. ORBITS: No obvious findings. IMPRESSION: No significant intracranial findings on this noninfused MRI scan of the brain. No evidence of demyelinating disease. DATA REPOSITORY:
== END 2024-12-05 02:49 ==
LOC: DI 02:30
PROVIDERS: PCP Family Medicine; Visit Provider Psychiatry & Neurology Neurology
DX: R20.0 Anesthesia of skin (principal)
CPT/HCPCS: 70551

== ENCOUNTER 2025-04-10 09:43 | Outpatient (REF) | payer MEDICAID, SELFPAY ==
[2025-04-11 10:13] LABS: Ro60 Ab, IgG <7.0 CU (<20.0); SS-A/Ro, IgG <2.3 CU (<20.0); SS-B (La) Ab, IgG <3.3 CU (<20.0)
== END 2025-04-10 09:44 | disposition home or self-care (01) ==
LOC: NCHCN 09:43
PROVIDERS: PCP Family Medicine; Visit Provider Family Medicine
DX: H04.123 Dry eye syndrome of bilateral lacrimal glands (principal)
CPT/HCPCS: 86235